=== PATIENT | female | born 1945 | race Caucasian/White ===

== ENCOUNTER 2020-07-04 10:39 | Outpatient (REF) | payer MEDICARE, OTHER, SELFPAY ==
--- NOTE | 2020-07-04 | MM_ITS ---
EXAMINATION: BONE DENSITOMETRY CLINICAL INDICATION: Other specified disorders of bone density and structure. COMPARISON: Previous BD dated 06/30/2018 and baseline BD dated 01/17/2008 (left hip). This is the patient's baseline examination for the spine. TECHNIQUE: Using a [employer] DXA System (software version: 13.1) manufactured by [employer], dual-energy x-ray absorptiometry was performed of the lumbar spine and left hip. The images are of good technical quality. Summary results are attached. FINDINGS: AP SPINE L2-L3: There is levocurvature and degenerative changes at L1 and L4 which may cause overestimation of the bone mineral density and therefore excluded from final measurement calculation. In addition, the images suggests interval loss of height at both T12 and L1 since prior imaging 2018. Current: BMD 1.313 g/cm2, Z-score 1.3, T-score -0.6, normal. 8.9% increase from previous, 1.1% increase from baseline (<5% change is not significant). Prior: BMD 1.040 g/cm2. Baseline: BMD 1.121 g/cm2. LEFT FEMUR, NECK: Current: BMD 0.762 g/cm2, Z-score 0.1, T-score -2.0, osteopenia. Prior: BMD 0.746 g/cm2. Baseline: BMD 0.759 g/cm2. LEFT FEMUR, TOTAL: Current: BMD 0.747 g/cm2, Z-score -0.2, T-score -2.1, osteopenia, 7.2% decrease from previous, 11.5% decrease from baseline (<5% change is not significant). Prior: BMD 0.805 g/cm2. Baseline: BMD 0.844 g/cm2. IDENTIFIED RISK FACTORS: Height loss, history of fracture (adult), family history (parental hip fracture), menopause. HISTORY OF FRACTURE: Spine, shoulder. Other. MEDICATIONS: Calcium supplements or multivitamin, vitamin D, bisphosphonates. MM/XR DEXA axial skeleton IMPRESSION: 1. DIAGNOSIS: Osteopenia based on the lowest T-score value of -2.1 in the total femur applying World Health Organization criteria. 2. Suspect loss of height, vertebral compression at L1 and possibly at T12 since prior imaging 2018. 3. 0-YEAR FRACTURE RISK PREDICTION, FRAX: Major osteoporotic fracture (clinical spine, forearm, hip or shoulder) 33.0%. Hip fracture 19.9%. 4. Treatment Recommendations: NOF guidelines recommend consideration for treatment in postmenopausal women and men age 50 and older presenting with the following: -A hip or vertebral (clinical or morphometric) fracture. -T-score less than or equal to -2.5 at the femoral neck or spine after appropriate evaluation to exclude secondary causes. -Low bone mass at the hip or spine and a 10-year fracture probability by FRAX of greater than or equal to 3% for hip fracture or greater than or equal to 20% for major osteoporotic fracture based on the [place] adapted WHO algorithm. 5. Other Recommendations: All treatment decisions require clinical judgment and consideration of individual patient factors, including patient preferences, comorbidities, previous drug use, risk factors not captured in the FRAX model (e.g. frailty, falls, vitamin D deficiency, increased bone turnover, interval significant decline in bone density) and possible under or overestimation of fracture risk by FRAX. Additional medical evaluation for secondary cause of low bone mineral density may be appropriate. FUTURE SCAN RECOMMENDATION: People with diagnosed cases of osteoporosis or at high risk for fracture should have regular bone mineral density tests. For patients eligible for Medicare, routine testing is allowed once every 2 years. The testing frequency can be increased to one year for patients who have rapidly progressing disease, those who are receiving or discontinuing medical therapy to restore bone mass, or have additional risk factors.i
--- NOTE | 2020-07-04 | MM_ITS ---
EXAMINATION: MM SCREENING DIGITAL BREAST TOMOSYNTHESIS, LEFT CLINICAL INFORMATION: Screening. Asymptomatic. Prior left lumpectomy for breast cancer 2014 and prior right mastectomy 2003. COMPARISON: Mammography: 07/04/2019, 06/30/2018, 06/25/2017, 06/25/2016 TECHNIQUE: Digital breast tomosynthesis is performed in both the craniocaudal and mediolateral oblique views along with computer-aided detection (CAD). Synthesized 2D images are generated from the tomosynthesis. Additional exaggerated CC view is provided. FINDINGS: The breasts are heterogeneously dense, which may obscure small masses (ACR BI-RADS breast composition Category c). There is stable scarring central 11:00 left breast. A subtle small asymmetric density posterior medial breast on CC view resides 9.8 cm from nipple is not seen with certainty on prior studies. There is no correlate on MLO view, possibly beyond field of view. Patient will be recalled for additional imaging. The remainder left breast shows no other significant changes. Again, there are scattered punctate and benign coarse calcifications. Skin contours are smooth. MM/MM tomosynthesis screening LT IMPRESSION: Small asymmetric density posterior medial breast on CC view. ASSESSMENT: BI-RADS 0: Incomplete - Need Additional Imaging Evaluation RECOMMENDATION: 1. Additional views of the left breast (spot medial CC, rolled CC, ML). 2. Targeted ultrasound if warranted after review of the additional views. 3. Radiology department staff will contact the patient for additional imaging. This patient's information was entered into a reminder system with a target due date for their next mammogram.
== END 2020-07-04 10:40 | disposition home or self-care (01) ==
LOC: HO.MAMMO 10:39
PROVIDERS: PCP Internal Medicine; Visit Provider Surgery
DX: Z12.31 Encounter for screening mammogram for malignant neoplasm of breast (principal); Z13.820 Encounter for screening for osteoporosis; M85.88 Other specified disorders of bone density and structure, other site
CPT/HCPCS: 77067; 77080

== ENCOUNTER 2020-07-27 10:42 | Outpatient (REF) | payer MEDICARE, OTHER, SELFPAY ==
--- NOTE | 2020-07-27 10:50 | MM_ITS ---
EXAMINATION: MM DIAGNOSTIC DIGITAL BREAST TOMOSYNTHESIS, LEFT CLINICAL INFORMATION: Recall from screening for small asymmetric density posterior medial left breast on CC view. Prior left lumpectomy for breast cancer 2014 and right mastectomy for breast cancer 2004. COMPARISON: Mammography: 07/04/2020, 06/30/2018, 06/25/2017 TECHNIQUE: Digital breast tomosynthesis is performed. 2D images are generated from the tomosynthesis. The following views are obtained: Rolled CC x2, spot CC x2. FINDINGS: The breasts are heterogeneously dense, which may obscure small masses (ACR BI-RADS breast composition Category c). Additional views show the small circumscribed nodule in the area of asymmetry posterior medial breast, similar to prior exams dating back to 2017. No developing density or interval mass or architectural abnormality. No significant changes from prior studies. Results are discussed with the patient at time of visit. MM/MM tomosynthesis diagnostic RT IMPRESSION: Additional views demonstrate no significant changes from prior studies. ASSESSMENT: BI-RADS 2: Benign RECOMMENDATION: Routine annual mammography screening. This patient's information was entered into a reminder system with a target due date for their next mammogram.
== END 2020-07-27 10:43 | disposition home or self-care (01) ==
LOC: HO.MAMMO 10:42
PROVIDERS: PCP Internal Medicine; Visit Provider Surgery
DX: R92.2 Inconclusive mammogram (principal); Z85.3 Personal history of malignant neoplasm of breast; Z90.11 Acquired absence of right breast and nipple
CPT/HCPCS: 77061; 77065

== ENCOUNTER → 2020-10-04 13:17 | Outpatient (BNVA) | payer MEDICARE, OTHER, SELFPAY | PROVIDERS: PCP Internal Medicine; Visit Provider Surgery ==

== ENCOUNTER → 2021-04-16 13:05 | Outpatient (BNVA) | payer MEDICARE, OTHER, SELFPAY | PROVIDERS: PCP Internal Medicine; Referring Provider Internal Medicine; Visit Provider Surgery | DX: Z85.3 Personal history of malignant neoplasm of breast (principal) | CPT/HCPCS: 99212 ==

== ENCOUNTER 2021-07-08 11:51 | Outpatient (REF) | payer MEDICARE, OTHER, SELFPAY ==
--- NOTE | ~2021-07-08 | MM_ITS ---
EXAMINATION: MM SCREENING DIGITAL BREAST TOMOSYNTHESIS, LEFT CLINICAL INFORMATION: Right mastectomy for breast cancer 2004. Prior left lumpectomy for breast cancer, 2014. COMPARISON: Mammography: 07/27/2020, 07/04/2020, 07/04/2019, 06/30/2018 TECHNIQUE: Digital breast tomosynthesis is performed in both the craniocaudal and mediolateral oblique views along with computer-aided detection (CAD). Synthesized 2D images are generated from the tomosynthesis. Additional exaggerated CC view is provided. FINDINGS: The breasts are heterogeneously dense, which may obscure small masses (ACR BI-RADS breast composition Category c). There are post therapy changes with stable scarring mid medial left breast. Background fibroglandular densities are stable. There is no developing density or interval mass or interval architectural changes. There are stable scattered benign punctate and some coarse calcifications. No significant changes. MM/MM tomosynthesis screening LT IMPRESSION: No mammographic evidence of malignancy. Post therapy changes, stable. ASSESSMENT: BI-RADS 2: Benign RECOMMENDATION: Routine annual mammography screening. This patient's information was entered into a reminder system with a target due date for their next mammogram.
== END 2021-07-08 11:52 | disposition home or self-care (01) ==
LOC: HO.MAMMO 11:51
PROVIDERS: Absent Provider Internal Medicine Hematology & Oncology; Visit Provider Internal Medicine
DX: Z12.31 Encounter for screening mammogram for malignant neoplasm of breast (principal)
CPT/HCPCS: 77063; 77067

== ENCOUNTER → 2021-10-29 11:25 | Outpatient (BNVA) | payer MEDICARE, OTHER, SELFPAY | PROVIDERS: PCP Internal Medicine; Referring Provider Internal Medicine; Visit Provider Surgery | DX: Z85.3 Personal history of malignant neoplasm of breast (principal) | CPT/HCPCS: 99212 ==

== ENCOUNTER → 2022-04-29 13:39 | Outpatient (BNVA) | payer MEDICARE, OTHER, SELFPAY | PROVIDERS: PCP Internal Medicine; Visit Provider Surgery | DX: Z85.3 Personal history of malignant neoplasm of breast (principal) | CPT/HCPCS: 99212 ==

== ENCOUNTER 2022-07-17 14:41 | Outpatient (REF) | payer MEDICARE, OTHER, SELFPAY ==
--- NOTE | ~2022-07-17 | MM_ITS ---
EXAMINATION: MM SCREENING DIGITAL BREAST TOMOSYNTHESIS, LEFT CLINICAL INFORMATION: Screening. Asymptomatic. Status post right mastectomy and left lumpectomy. COMPARISON: Mammography: July 08, 2021 and studies dating back to June 25, 2016 TECHNIQUE: Digital breast tomosynthesis is performed in both the craniocaudal and mediolateral oblique views along with computer-aided detection (CAD). Synthesized 2D images are generated from the tomosynthesis. FINDINGS: The breasts are extremely dense, which lowers the sensitivity of mammography (ACR BI-RADS breast composition Category d). There is a stable postoperative appearance to the left breast. Scattered and grouped calcifications again identified. MM/MM tomosynthesis screening LT IMPRESSION: No significant changes from prior exam. ASSESSMENT: BI-RADS 2: Benign RECOMMENDATION: Routine annual mammography screening. This patient's information was entered into a reminder system with a target due date for their next mammogram.
--- NOTE | ~2022-07-17 | MM_ITS ---
EXAMINATION: BONE DENSITOMETRY CLINICAL INDICATION: Osteoporosis. COMPARISON: Previous BD dated 07/04/2020 and baseline BD dated 01/17/2008. TECHNIQUE: Using a [employer] DXA System (software version: 13.1) manufactured by [employer], dual-energy x-ray absorptiometry was performed of the lumbar spine and left hip. The images are of good technical quality. Summary results are attached. FINDINGS: AP SPINE L2-L3 (excluding L1 and L4): The data of L1-L4 has been changed to exclude the L1 and L4 vertebral bodies, because degenerative sclerosis at these levels may cause overestimation of lumbar spine density. Current: BMD 1.179 g/cm2, Z-score 1.7, T-score -0.2, normal, 4.1% increase from previous, 5.2% increase from baseline (<5% change is not significant). Prior: BMD 1.133 g/cm2. Baseline: BMD 1.121 g/cm2. LEFT FEMUR, NECK: Current: BMD 0.721 g/cm2, Z-score -0.2, T-score -2.3, osteopenia. Prior: BMD 0.762 g/cm2. Baseline: BMD 0.759 g/cm2. LEFT FEMUR, TOTAL: Current: BMD 0.720 g/cm2, Z-score -0.4, T-score -2.3, osteopenia, 3.6% decrease from previous, 14.7% decrease from baseline (<5% change is not significant). Prior: BMD 0.747 g/cm2. Baseline: BMD 0.844 g/cm2. IDENTIFIED RISK FACTORS: Family history (parent hip fracture), height loss, history of fracture (adult), menopause. HISTORY OF FRACTURE: Clavicle, spine, shoulder. MEDICATIONS: Calcium, vitamin D, bisphosphonate. MM/XR DEXA axial skeleton IMPRESSION: 1. DIAGNOSIS: Osteopenia based on the lowest T-score value of -2.3 in the femur neck and total femur applying World Health Organization criteria. 2. 10-YEAR FRACTURE RISK PREDICTION, FRAX: Not performed in this patient on estrogen or bone building treatments. 3. Treatment Recommendations: NOF guidelines recommend consideration for treatment in postmenopausal women and men age 50 and older presenting with the following: -A hip or vertebral (clinical or morphometric) fracture. -T-score less than or equal to -2.5 at the femoral neck or spine after appropriate evaluation to exclude secondary causes. -Low bone mass at the hip or spine and a 10-year fracture probability by FRAX of greater than or equal to 3% for hip fracture or greater than or equal to 20% for major osteoporotic fracture based on the [place] adapted WHO algorithm. 4. Other Recommendations: All treatment decisions require clinical judgment and consideration of individual patient factors, including patient preferences, comorbidities, previous drug use, risk factors not captured in the FRAX model (e.g. frailty, falls, vitamin D deficiency, increased bone turnover, interval significant decline in bone density) and possible under or overestimation of fracture risk by FRAX. Additional medical evaluation for secondary cause of low bone mineral density may be appropriate. FUTURE SCAN RECOMMENDATION: People with diagnosed cases of osteoporosis or at high risk for fracture should have regular bone mineral density tests. For patients eligible for Medicare, routine testing is allowed once every 2 years. The testing frequency can be increased to one year for patients who have rapidly progressing disease, those who are receiving or discontinuing medical therapy to restore bone mass, or have additional risk factors.
== END 2022-07-17 14:42 | disposition home or self-care (01) ==
LOC: HO.MAMMO 14:41
PROVIDERS: PCP Internal Medicine; Referring Provider Surgery; Visit Provider Internal Medicine Hematology & Oncology
DX: Z12.31 Encounter for screening mammogram for malignant neoplasm of breast (principal); Z13.820 Encounter for screening for osteoporosis; M81.0 Age-related osteoporosis without current pathological fracture; Z78.0 Asymptomatic menopausal state
CPT/HCPCS: 77063; 77067; 77080

== ENCOUNTER → 2022-10-14 11:53 | Outpatient (BNVA) | payer MEDICARE, OTHER, SELFPAY | PROVIDERS: PCP Internal Medicine; Visit Provider Surgery | DX: Z85.3 Personal history of malignant neoplasm of breast (principal) | CPT/HCPCS: 99212 ==

== ENCOUNTER 2023-05-01 11:11 | Outpatient (AMB) | payer MEDICARE, OTHER, SELFPAY ==
--- NOTE | 2023-05-01 11:12 | MHC.OFFVIS ---
Intake Vital Signs 05/01/23 11:46 Height 5 ft 7 in Weight 145 lb 2 oz BMI 22.7 BP 163/77 H Blood Pressure Location Lt brachial Position Sitting Pulse 92 Intake Visit Reasons: 6 month follow up breast exam Intake Note: Patient is seen in office for 6 month follow up visit breast exam. Patient c/o: admits to continued soreness in the breast, and sensitive under the right axilla Tobacco Classer Required: No Accompanied by: Self / Same As Patient Allergies moxifloxacin [From AVELOX] Allergy (Unknown, Unverified 05/01/23 11:13) HIVES,RASH pneumococcal vaccine [PNEUMOCOCCAL VACCINE] Allergy (Unknown, Unverified 05/01/23 11:13) TEMP, SWELLING Quinolones [QUINOLONES] Allergy (Unknown, Unverified 05/01/23 11:13) RASH dust, cats,strong perfumes Allergy (Unknown, Uncoded 05/01/23 11:13) scratchy throat nasal stuffiness environmental Allergy (Unknown, Uncoded 05/01/23 11:13) Nasal congestion seasonal allergies Allergy (Unknown, Uncoded 05/01/23 11:13) Unknown Medication List - Last Reconciled 05/01/23 by Horace Gaspar MD apixaban (Eliquis) 5 mg PO BID docusate sodium (Colace) 100 mg PO DAILY fentanyl 12 mcg/hr 1 patch topical Q3D letrozole 2.5 mg PO DAILY metoprolol succinate ER 25 mg PO DAILY nitrofurantoin monohyd/m-cryst 100 mg 1 cap PO Q12H omeprazole 20 mg PO DAILY PRN palbociclib mg PO zoledronic acid 4 mg IV Q4W HPI HPI Comments History of Present Illness Details 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 She initially developed a right breast cancer which was treated by Dr. Armendariz and subsequently developed a recurrence right breast cancer requiring a right modified radical mastectomy in 2005. She later developed a left breast carcinoma treated by Dr. San with a left breast lumpectomy and left axillary sentinel node biopsy on 06/08/2015.? Pathology revealed a 1 cm grade 1 infiltrating ductal carcinoma ER NJ negative, HER2 Tejas negative.? Margins were clear however the inferior margin was close initially and re-excision performed with widely clear margin.? The 1 sentinel node was benign.? She subsequently underwent TC chemotherapy at [facility] under the direction of Dr. Huntley and radiation therapy also at [facility] with Dr. Walker, completed in December 2015. 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 The HER2 Tejas was equivocal by IHC and not over expressed by FISH.? She reported back pain which was initially thought to be due to arthritis but after a bone scan, metastatic disease was noted in the ribs, skull, and back.? 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 A biopsy of metastatic lesion at L4 revealed estrogen positive tumor, positive for over expression of her 2 Tejas.? She received radiation therapy to her back and subsequently received Taxol, Herceptin, and Perjeta.? She is also receiving Zometa for her bones (Dr. Huntley).? She denies any ongoing breast symptoms but does report left hip pain. Screening mammogram of 07/17/2022 of the left breast revealed no mammographic evidence of malignancy (BI-RADS 2). Routine annual mammography was recommended. Bone scan of 07/29/2021 reveals multifocal osseous disease consistent with chronic metastatic disease. [facility] Medical History Left breast mass History of bilateral breast cancer Surgical History History of lumpectomy of left breast (06/08/15) H/O colonoscopy History of nasal surgery History of tonsillectomy H/O right mastectomy (2005) Family History Father Lymphoma Maternal Aunt Pancreatic cancer Review of Systems Const All systems reviewed & are unremarkable except as noted in HPI and below Denies chills, Denies fever(s), Reports weakness, Denies weight gain and Denies weight loss Resp Denies no additional complaints GI Denies abdominal pain and Reports bloating Denies nipple discharge Musc Reports back pain, Reports myalgias and Reports loss of height Skin/Breast Details: Right mastectomy Denies breast swelling, Reports breast pain, Denies breast mass, Denies change in breast shape and Denies nipple discharge Neuro Reports weakness Dominick/Lymph Denies lymphadenopathy Physical Exam Const General: cooperative, healthy appearing, comfortable, well developed, alert and Physically active Neck Neck: Yes normal visual inspection, Yes full ROM and Yes no lymphadenopathy Chest Other: Right mastectomy, left breast with a well-healed incision in the upper mid breast oriented transversely. Mild tenderness is elicited in the upper outer quadrant. No palpable breast masses noted in the left breast. No skin changes, ulceration or subcutaneous lesions are palpable on the right side. No new breast mass noted and no enlarged lymph nodes on either side. No overlying skin changes are appreciated in this area. Resp Effort & Inspection: normal respiratory effort, no cough and not tachypneic GI Inspection: Yes normal to inspection Skin General skin exam: no rashes or lesions noted Extrem General: Yes no clubbing, cyanosis or edema Assessment & Plan Assessment & Plan (1) History of bilateral breast cancer: Code(s): Z85.3 - Personal history of malignant neoplasm of breast Plan: 78-year-old female seen for follow-up breast examination after a long history with bilateral breast cancer previously treated by Dr. Armendariz and Dr. San. She subsequently developed metastasis to the spine and received chemotherapy and radiation. She reports mild back and left hip pain pain. Her most recent mammogram of the left breast on 07/17/2022 revealed benign findings (BI-RADS 2). She is scheduled for an annual mammogram on 07/21/2023. Examination today reveals no suspicious findings in the left breast. The right chest wall reveals no palpable subcutaneous nodules or evidence of local recurrence. She will return for follow-up examination in 6 months and continue her oncology follow-up with Dr. Huntley. Coding Level of Care Code Est Pt Level 3 (33371) Diagnoses History of bilateral breast cancer Z85.3
[2023-05-01 11:46] VITALS: BP 163/77; PULSE 92; BMI 22.7
== END 2023-05-01 11:54 | disposition home or self-care (01) ==
PROVIDERS: PCP Internal Medicine; Visit Provider Surgery
DX: Z85.3 Personal history of malignant neoplasm of breast (principal)
CPT/HCPCS: 99213

== ENCOUNTER → 2023-05-01 11:11 | Outpatient (BNVA) | payer MEDICARE, OTHER, SELFPAY | PROVIDERS: PCP Internal Medicine; Visit Provider Surgery | DX: Z85.3 Personal history of malignant neoplasm of breast (principal) | CPT/HCPCS: 99212 ==

== ENCOUNTER 2023-07-22 14:49 | Outpatient (REF) | payer MEDICARE, OTHER, SELFPAY ==
--- NOTE | ~2023-07-22 | MM_ITS ---
EXAMINATION: MM SCREENING DIGITAL BREAST TOMOSYNTHESIS, LEFT CLINICAL INFORMATION: Screening. Asymptomatic. The patient is status post right mastectomy and history of conservatively treated left breast cancer. Please note that the patient has severe arthritis of the left shoulder which limits left breast positioning for the mammogram. COMPARISON: Mammography: This study is compared with prior exams dating back to 2019. TECHNIQUE: Digital breast tomosynthesis is performed in both the craniocaudal and mediolateral oblique views along with computer-aided detection (CAD). Synthesized 2D images are generated from the tomosynthesis. FINDINGS: There are scattered areas of fibroglandular density (ACR BI-RADS breast composition Category b). There are grouped calcifications spanning approximately 28 mm. These lie approximately 1 cm anterior to the surgical bed of the prior left breast cancer. There are also loosely grouped calcifications in the upper outer quadrant of the left breast. Additional mammographic imaging with magnification is advised for both areas of calcification.. There are architectural changes in the upper inner quadrant of the left breast bilingual inside sales representative of the prior surgical bed. MM/MM tomosynthesis screening LT IMPRESSION: 2 groups of calcifications in the left breast for which additional mammographic imaging magnification is advised. ASSESSMENT: BI-RADS BI-RADS 0 - Incomplete: Needs additional Imaging. RECOMMENDATION: Additional views of the left breast Radiology department staff will contact the patient for additional imaging. Additional Imaging required This examination should not preclude the clinical evaluation of a suspicious palpable abnormality. This patient's information was entered into a reminder system with a target due date for their next mammogram.
== END 2023-07-22 14:50 | disposition home or self-care (01) ==
LOC: HO.MAMMO 14:49
PROVIDERS: PCP Internal Medicine; Referring Provider Internal Medicine Hematology & Oncology; Visit Provider Internal Medicine
DX: Z12.31 Encounter for screening mammogram for malignant neoplasm of breast (principal)
CPT/HCPCS: 77063; 77067

== ENCOUNTER → 2023-07-22 15:00 | Outpatient (BNV) | payer MEDICARE, OTHER, SELFPAY | PROVIDERS: PCP Internal Medicine; Referring Provider Internal Medicine Hematology & Oncology; Visit Provider Radiology Diagnostic Radiology | DX: Z12.31 Encounter for screening mammogram for malignant neoplasm of breast (principal) | CPT/HCPCS: 77063; 77067 ==

== ENCOUNTER → 2023-08-05 13:00 | Outpatient (BNV) | payer MEDICARE, OTHER, SELFPAY | PROVIDERS: PCP Internal Medicine; Visit Provider Radiology Diagnostic Radiology | DX: R92.1 Mammographic calcification found on diagnostic imaging of breast (principal) | CPT/HCPCS: 77065 ==

== ENCOUNTER 2023-08-05 13:01 | Outpatient (REF) | payer MEDICARE, OTHER, SELFPAY ==
--- NOTE | ~2023-08-05 | MM_ITS ---
EXAMINATION: MM DIAGNOSTIC DIGITAL MAMMOGRAPHY, LEFT CLINICAL INFORMATION: 78-year-old female history of RIGHT mastectomy 2005, LEFT breast carcinoma status post lumpectomy and radiation in 2015, with bony metastases T12-L2, diagnostic LEFT mammogram to evaluate increasing calcifications anterior to the lumpectomy site, and upper outer LEFT calcifications also evident. Patient is managed oncologically at [facility]. COMPARISON: Mammography: 07/22/2023, 07/17/2022, 07/08/2021, 07/27/2020, 07/04/2020, and dating back to 04/17/2014. TECHNIQUE: Digital mammography is performed in the following views: 2-D spot magnification views left CC x2, and left ML x2. FINDINGS: The breasts are heterogeneously dense, which may obscure small masses (ACR BI-RADS breast composition Category c). In the upper outer quadrant of the left breast, there are scattered punctate rounded non-pleomorphic calcifications present in the heterogeneously dense breast stroma, without suspicious grouping, pleomorphism, or suspicious distribution. There may be a few layering forms present suggesting milk of calcium. In hindsight these were present on prior exams and largely appear unchanged within the confines of comparing magnification view to non-magnification views. There are 3 large dense benign dystrophic calcifications present, minimally changed from priors. Approximately 3.3 cm lateral to the lumpectomy site are extremely faint grouped punctate calcifications, which cannot be appreciated without magnification views and hence no prior comparison can be made. We will follow these calcifications in 6 months as well, as I believe they are too faint to resolve on stereotactic biopsy. Anterior to the surgical scar, approximately 11:00 axis mid to anterior left breast, there are significantly increased somewhat coarse but significantly pleomorphic calcifications. These are grouped, with a few linear, branching, and casting forms, in a possible segmental distribution, spanning approximately 3.1 cm AP diameter. These have significantly increased in number and pleomorphism since 1 year prior, and despite having a somewhat coarse appearance, could easily represent malignant calcifications/disease recurrence. It would be unusual to develop many dystrophic calcifications over one years time, 8 years after left lumpectomy surgery. Hence, these should be considered suspicious, and stereotactic biopsy is recommended for further characterization. MM/MM added views LT IMPRESSION: -Increasing suspicious calcifications anterior to the lumpectomy site as described, for which stereotactic biopsy is recommended for further characterization. -Punctate calcifications in the upper outer left breast are present without suspicious grouping, pleomorphism, or suspicious distribution. In hindsight these are likely unchanged and likely benign. This includes a group of approximately 3.3 cm immediately lateral to the lumpectomy site. Six-month interval follow-up mammography recommended to ensure stability with standard magnification views. -Lengthy discussion was held with the patient and her brother. The patient reports minimal recent rising tumor marker, which is also of note. Ultimately, the patient decided stereotactic biopsy of these increasing calcifications was the most reasonable course forward, and we will schedule this unless we hear differently from the patient. ASSESSMENT: BI-RADS BI-RADS 4 - Suspicious finding RECOMMENDATION: Biopsy recommended
== END 2023-08-05 13:02 | disposition home or self-care (01) ==
LOC: HO.MAMMO 13:01
PROVIDERS: PCP Internal Medicine; Visit Provider Internal Medicine
DX: R92.1 Mammographic calcification found on diagnostic imaging of breast (principal); Z85.3 Personal history of malignant neoplasm of breast; Z90.11 Acquired absence of right breast and nipple; Z92.3 Personal history of irradiation
CPT/HCPCS: 77065

== ENCOUNTER 2023-08-07 08:01 | Outpatient (REF) | payer MEDICARE, OTHER, SELFPAY | END 2023-08-07 08:02 | disposition home or self-care (01) | LOC: HO.MAMMO 08:01 | PROVIDERS: Absent Provider Internal Medicine Hematology & Oncology; PCP Internal Medicine; Visit Provider Surgery | DX: Z13.89 Encounter for screening for other disorder (principal) ==

== ENCOUNTER 2023-09-09 11:04 | Outpatient (AMB) | payer MEDICARE, OTHER, SELFPAY ==
[2023-09-09 11:16] VITALS: BP 136/80; PULSE 76
--- NOTE | 2023-09-09 11:16 | MHC.OFFVIS ---
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 Required: No Allergies moxifloxacin [From AVELOX] Allergy (Unknown, Unverified 09/09/23 11:19) HIVES,RASH pneumococcal vaccine [PNEUMOCOCCAL VACCINE] Allergy (Unknown, Unverified 09/09/23 11:19) TEMP, SWELLING Quinolones [QUINOLONES] Allergy (Unknown, Unverified 09/09/23 11:19) RASH dust, cats,strong perfumes Allergy (Unknown, Uncoded 09/09/23 11:19) scratchy throat nasal stuffiness environmental Allergy (Unknown, Uncoded 09/09/23 11:19) Nasal congestion seasonal allergies Allergy (Unknown, Uncoded 09/09/23 11:19) Unknown Medication List - Last Reconciled 09/09/23 by Johnathan Hernandez, RN apixaban (Eliquis) 5 mg PO BID docusate sodium (Colace) 100 mg PO DAILY fentanyl 12 mcg/hr 1 patch topical Q3D letrozole 2.5 mg PO DAILY metoprolol succinate ER 25 mg PO DAILY mirabegron ER (Myrbetriq) 50 mg PO DAILY nitrofurantoin monohyd/m-cryst 100 mg 1 cap PO Q12H omeprazole 20 mg PO DAILY PRN palbociclib mg PO zoledronic acid 4 mg IV Q4W HPI HPI Comments History of Present Illness Details Daniela Woods is a 78-year-old female returning today to review results of her recent stereotactic guided core biopsy [place] [facility] [place] 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 She initially developed a right breast cancer treated by Dr. Armendariz and subsequently developed a recurrence right breast cancer requiring a right modified radical mastectomy in 2005. She later developed a left breast carcinoma treated by Dr. aSn with a left breast lumpectomy and left axillary sentinel node biopsy on 06/08/2015.? Pathology revealed a 1 cm grade 1 infiltrating ductal carcinoma ER GA negative, HER2 Tejas negative.? Margins were clear however the inferior margin was close initially and re-excision performed with widely clear margin.? The 1 sentinel node was benign.? She subsequently underwent TC chemotherapy at [facility] under the direction of Dr. Huntley and radiation therapy also at [facility] with Dr. Walker, completed in December 2015. She was diagnosed with metastatic breast cancer with spread to her spine felt to be related to her right breast carcinoma which was a mixed ductal and lobular carcinoma, ER GA positive, 9.5 cm in greatest diameter with 2 of 14 right axillary lymph nodes positive for metastasis.? The HER2 Tejas was equivocal by IHC and not over expressed by FISH.? She reported back pain which was initially thought to be due to arthritis but after a bone scan, metastatic disease was noted in the ribs, skull, and back.? 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 A biopsy of metastatic lesion at L4 revealed estrogen positive tumor, positive for over expression of her 2 Tejas.? She received radiation therapy to her back and subsequently received Taxol, Herceptin, and Perjeta.? She is also receiving Zometa for her bones (Dr. Huntley).? She denies any ongoing breast symptoms but does report left hip pain. Bone scan of 07/29/2021 reveals multifocal osseous disease consistent with chronic metastatic disease. Screening mammogram of 07/22/2023 with follow-up diagnostic images of the left breast of 09/01/2023 revealed a cluster of calcifications in the left breast spanning approximately 3.3 cm. She subsequently underwent stereotactic guided core biopsy at [facility] [place] and the pathology revealed DCIS, ER/GA negative. Patient was provided with a copy of the pathology report. [facility] Medical History Left breast mass History of bilateral breast cancer Surgical History History of lumpectomy of left breast (06/08/15) H/O colonoscopy History of nasal surgery History of tonsillectomy H/O right mastectomy (2005) Family History Father Lymphoma Maternal Aunt Pancreatic cancer Review of Systems Const All systems reviewed & are unremarkable except as noted in HPI and below Denies chills, Denies fever(s), Reports weakness, Denies weight gain and Denies weight loss Resp Denies no additional complaints GI Denies abdominal pain and Reports bloating Denies nipple discharge Musc Reports back pain, Reports myalgias and Reports loss of height Skin/Breast Details: Right mastectomy Denies breast swelling, Reports breast pain, Denies breast mass, Denies change in breast shape and Denies nipple discharge Neuro Reports weakness Dominick/Lymph Denies lymphadenopathy Physical Exam Vital Signs: Last Vital Signs Pulse 76 09/09/23 11:16 BP 136/80 09/09/23 11:16 Const General: cooperative, healthy appearing, comfortable, well developed, alert and Physically active Neck Neck: Yes normal visual inspection, Yes full ROM and Yes no lymphadenopathy Chest Other: Exam deferred Resp Effort & Inspection: normal respiratory effort, no cough and not tachypneic GI Inspection: Yes normal to inspection Skin General skin exam: no rashes or lesions noted Extrem General: Yes no clubbing, cyanosis or edema Assessment & Plan Assessment & Plan (1) History of bilateral breast cancer: Code(s): Z85.3 - Personal history of malignant neoplasm of breast (2) Ductal carcinoma in situ (DCIS) of left breast: Code(s): D05.12 - Intraductal carcinoma in situ of left breast Plan 78-year-old female patient returning following a recent stereotactic guided core biopsy of the left breast. This revealed DCIS, ER/GA negative. Patient has previously undergone radiation therapy to the left breast. She is also being treated for metastatic disease for the right breast cancer metastatic to the spine. Options include no surgery, lumpectomy, or simple mastectomy. Will discuss with Dr. Huntley. Patient will schedule a follow-up appointment with him as well to discuss further. Coding Level of Care Code Est Pt Level 4 (01462) Diagnoses History of bilateral breast cancer Z85.3 Ductal carcinoma in situ (DCIS) of left breast D05.12
== END 2023-09-09 12:27 | disposition home or self-care (01) ==
PROVIDERS: PCP Internal Medicine; Visit Provider Surgery
DX: Z85.3 Personal history of malignant neoplasm of breast (principal); D05.12 Intraductal carcinoma in situ of left breast
CPT/HCPCS: 99214

== ENCOUNTER → 2023-09-09 11:04 | Outpatient (BNVA) | payer MEDICARE, OTHER, SELFPAY | PROVIDERS: PCP Internal Medicine; Visit Provider Surgery | DX: D05.12 Intraductal carcinoma in situ of left breast (principal); Z85.3 Personal history of malignant neoplasm of breast | CPT/HCPCS: 99212 ==

== ENCOUNTER 2023-09-29 10:16 | Outpatient (REF) | payer MEDICARE, OTHER, SELFPAY | END 2023-09-29 10:17 | disposition home or self-care (01) | LOC: HO.MAMMO 10:16 | PROVIDERS: PCP Internal Medicine; Visit Provider Surgery | DX: D05.12 Intraductal carcinoma in situ of left breast (principal) | CPT/HCPCS: 99212 ==

== ENCOUNTER 2023-09-29 13:18 | Outpatient (AMB) | payer MEDICARE, OTHER, SELFPAY ==
--- NOTE | 2023-09-29 13:22 | MHC.OFFVIS ---
Intake Vital Signs 09/29/23 13:31 Height 5 ft 7 in Weight 146 lb BMI 22.9 BP 183/96 H Blood Pressure Location Lt brachial Position Sitting Pulse 104 H Intake Visit Reasons: discuss mastectomy Intake Note: Patient is seen in office to discuss mastectomy. Systems Administration Analyst Required: No Accompanied by: Other Relationship Allergies moxifloxacin [From AVELOX] Allergy (Unknown, Unverified 09/29/23 13:31) HIVES,RASH pneumococcal vaccine [PNEUMOCOCCAL VACCINE] Allergy (Unknown, Unverified 09/29/23 13:31) TEMP, SWELLING Quinolones [QUINOLONES] Allergy (Unknown, Unverified 09/29/23 13:31) RASH dust, cats,strong perfumes Allergy (Unknown, Uncoded 09/29/23 13:31) scratchy throat nasal stuffiness environmental Allergy (Unknown, Uncoded 09/29/23 13:31) Nasal congestion seasonal allergies Allergy (Unknown, Uncoded 09/29/23 13:31) Unknown HPI HPI Comments History of Present Illness Details Daniela Woods is a 78-year-old female returning today to review results of her recent stereotactic guided core biopsy [place] [facility] [place] 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 She initially developed a right breast cancer treated by Dr. Armendariz and subsequently developed a recurrence right breast cancer requiring a right modified radical mastectomy in 2005. She later developed a left breast carcinoma treated by Dr. San with a left breast lumpectomy and left axillary sentinel node biopsy on 06/08/2015.? Pathology revealed a 1 cm grade 1 infiltrating ductal carcinoma ER SC negative, HER2 Tejas negative.? Margins were clear however the inferior margin was close initially and re-excision performed with widely clear margin.? The 1 sentinel node was benign.? She subsequently underwent TC chemotherapy at [facility] under the direction of Dr. Huntley and radiation therapy also at [facility] with Dr. Walker, completed in December 2015. She was diagnosed with metastatic breast cancer with spread to her spine felt to be related to her right breast carcinoma which was a mixed ductal and lobular carcinoma, ER SC positive, 9.5 cm in greatest diameter with 2 of 14 right axillary lymph nodes positive for metastasis.? The HER2 Tejas was equivocal by IHC and not over expressed by FISH.? She reported back pain which was initially thought to be due to arthritis but after a bone scan, metastatic disease was noted in the ribs, skull, and back.? 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 A biopsy of metastatic lesion at L4 revealed estrogen positive tumor, positive for over expression of her 2 Tejas.? She received radiation therapy to her back and subsequently received Taxol, Herceptin, and Perjeta.? She is also receiving Zometa for her bones (Dr. Huntley).? She denies any ongoing breast symptoms but does report left hip pain. Bone scan of 07/29/2021 reveals multifocal osseous disease consistent with chronic metastatic disease. Screening mammogram of 07/22/2023 with follow-up diagnostic images of the left breast of 09/01/2023 revealed a cluster of calcifications in the left breast spanning approximately 3.3 cm. She subsequently underwent stereotactic guided core biopsy at [facility] and the pathology revealed DCIS, ER/SC negative. Patient was provided with a copy of the pathology report. After discussion with her oncologist Dr. Huntley she was given the option of lumpectomy verses simple mastectomy. She is now decided to proceed with simple mastectomy. She returns today to discuss simple mastectomy as well as the recovery following this procedure. [facility] Medical History Left breast mass History of bilateral breast cancer Surgical History History of lumpectomy of left breast (06/08/15) H/O colonoscopy History of nasal surgery History of tonsillectomy H/O right mastectomy (2005) Family History Father Lymphoma Maternal Aunt Pancreatic cancer Review of Systems Const All systems reviewed & are unremarkable except as noted in HPI and below Denies chills, Denies fever(s), Reports weakness, Denies weight gain and Denies weight loss Resp Denies no additional complaints GI Denies abdominal pain and Reports bloating Denies nipple discharge Musc Reports back pain, Reports myalgias and Reports loss of height Skin/Breast Details: Right mastectomy Denies breast swelling, Reports breast pain, Denies breast mass, Denies change in breast shape and Denies nipple discharge Neuro Reports weakness Dominick/Lymph Denies lymphadenopathy Physical Exam Const General: cooperative, healthy appearing, comfortable, well developed, alert and Physically active Neck Neck: Yes normal visual inspection, Yes full ROM and Yes no lymphadenopathy Chest Other: Exam deferred Resp Effort & Inspection: normal respiratory effort, no cough and not tachypneic GI Inspection: Yes normal to inspection Skin General skin exam: no rashes or lesions noted Extrem General: Yes no clubbing, cyanosis or edema Assessment & Plan Assessment & Plan (1) History of bilateral breast cancer: Code(s): Z85.3 - Personal history of malignant neoplasm of breast (2) Ductal carcinoma in situ (DCIS) of left breast: Code(s): D05.12 - Intraductal carcinoma in situ of left breast Plan 78-year-old female patient returning following a recent stereotactic guided core biopsy of the left breast. This revealed DCIS, ER/SC negative. Patient has previously undergone radiation therapy to the left breast. She is also being treated for metastatic disease for the right breast cancer metastatic to the spine. Options include no surgery, lumpectomy, or simple mastectomy. After discussion with the patient's oncologist, the patient has decided to proceed with simple mastectomy. This will be scheduled as a short-stay admit and has been scheduled for 10/05/2023. I reviewed the procedure, risks, and alternatives and she consents to the simple mastectomy. Coding Level of Care Code Est Pt Level 4 (81696) Diagnoses History of bilateral breast cancer Z85.3 Ductal carcinoma in situ (DCIS) of left breast D05.12
[2023-09-29 13:31] VITALS: BP 183/96; PULSE 104; BMI 22.9
== END 2023-09-29 13:54 | disposition home or self-care (01) ==
PROVIDERS: PCP Internal Medicine; Visit Provider Surgery
DX: Z85.3 Personal history of malignant neoplasm of breast (principal); D05.12 Intraductal carcinoma in situ of left breast
CPT/HCPCS: 99214

== ENCOUNTER 2023-10-05 10:04 | Inpatient (IN) | payer MEDICARE, OTHER, SELFPAY ==
[2023-10-02 09:16] VITALS: BMI 22.2
--- NOTE | 2023-10-02 10:14 | P.CONAN_ITS ---
Documented by User: Ema Sigala NP 10/02/23 10:15 HPI - Anesthesia Eval Consult details Narrative: 78yo F for Left Mastectomy Simple, complete Eliquis for afib s/p Right mastectomy, hx chemo Fentanyl patch PMFSH Active Problems Active Problems: All Active Problems (Updated 10/02/23 @ 09:22 by Margo Sebastian, RN) Ductal carcinoma in situ (DCIS) of left breast (Acute) Atrial fibrillation (Acute) Left breast mass (Acute) History of bilateral breast cancer (Acute) Past Medical History Medical History (Updated 10/02/23 @ 09:22 by Margo Sebastian, RN) Constipation GERD (gastroesophageal reflux disease) Recent urinary tract infection OAB (overactive bladder) Anxiety Recent upper respiratory tract infection PND (post-nasal drip) Dental crowns present Lumbar compression fracture Thoracic compression fracture Scoliosis Environmental allergies Seasonal allergies History of cancer chemotherapy History of radiation therapy Atrial fibrillation Left breast mass History of bilateral breast cancer Family History Family History Father Lymphoma Maternal Aunt Pancreatic cancer Surgical History Surgical History History of lumpectomy of left breast (06/08/15) H/O colonoscopy History of nasal surgery History of tonsillectomy H/O right mastectomy (2005) Social History Social History (Updated 10/02/23 @ 09:22 by Margo Sebastian, ERIN) Are you a primary child care teacher to a significant other at home: No Do you presently have visiting nurse or other home services: No Patient Tobacco Use Status: Former Tobacco user Quit Date: Tobacco use type: Cigarette Use of substances other than those prescribed or required for medical reasons: No Have you been hit, kicked, punched, or otherwise hurt by someone within the past year? If so, by whom?: No Are you DNR?: No Advance Directives: No Advance Directives Information Provided: Yes Advance Directives on File: No Recently lost weight without trying: No Nutrition Risks: Surgical patient >75years Poor oral hygiene: No ( many capped teeth ) Meds Allergies Allergy/AdvReac Type Severity Reaction Status Date / Time moxifloxacin [From AVELOX] Allergy Severe HIVES,RASH Verified 10/01/23 15:52 Quinolones [QUINOLONES] Allergy Severe RASH Verified 10/01/23 15:52 adhesive tape Allergy Intermediate Itching, Verified 10/01/23 15:56 redness cefpodoxime [From Vantin] Allergy Intermediate Itching Verified 10/01/23 15:53 pneumococcal vaccine Allergy Intermediate TEMP, Verified 10/01/23 15:52 [PNEUMOCOCCAL VACCINE] SWELLING dust, cats,strong perfumes Allergy Intermediate scratchy Uncoded 10/01/23 15:53 throat, nasal stuffiness environmental Allergy Intermediate Nasal Uncoded 10/01/23 15:53 congestion seasonal allergies Allergy Intermediate Nasal Uncoded 10/01/23 15:53 congestion Home Medications Medication Instructions Recorded Confirmed Last Taken Type docusate sodium 100 mg capsule 100 mg PO DAILY PRN Constipation 10/10/20 10/02/23 Unknown History (Colace) letrozole 2.5 mg tablet 2.5 mg PO DAILY 10/10/20 10/02/23 Unknown History omeprazole 20 mg capsule,delayed 20 mg PO DAILY 10/10/20 10/02/23 Unknown History release palbociclib 125 mg capsule PO .[id number] 10/10/20 05/01/23 Unknown History apixaban 5 mg tablet (Eliquis) 5 mg PO BID 10/29/21 10/02/23 10/01/23 History fentanyl 12 mcg/hr transdermal 1 patch topical Q3D PRN Pain 10/29/21 10/02/23 09/30/22 History patch mirabegron 50 mg tablet,extended 50 mg PO DAILY 09/09/23 10/02/23 Unknown History release 24 hr (Myrbetriq) acetaminophen 500 mg tablet 1,000 mg PO TID PRN Pain 10/02/23 10/02/23 Unknown History albuterol sulfate 90 mcg/actuation 2 puff inhalation Q4H PRN 10/02/23 10/02/23 Unknown History aerosol inhaler Shortness Of Breath Or Wheezing cholecalciferol (vitamin D3) 50 50 mcg PO DAILY 10/02/23 10/02/23 Unknown History mcg (2,000 unit) capsule (Vitamin D3) multivitamin 1 tab PO QAM 10/02/23 10/02/23 Unknown History oxycodone 5 mg tablet 5 mg PO Q8H PRN Pain 10/02/23 10/02/23 09/30/22 History Exam Height,Weight and Vital Signs: Height 5 ft 7 in Weight 64.41 kg Assessment and Plan Assessment Anesthesia Assessment: Chart Reviewed Documented by User: Terry Obregon MD 10/05/23 10:13 [facility] Past Medical History Medical History (Updated 10/02/23 @ 09:22 by Margo Sebastian, ERIN) Constipation GERD (gastroesophageal reflux disease) Recent urinary tract infection OAB (overactive bladder) Anxiety Recent upper respiratory tract infection PND (post-nasal drip) Dental crowns present Lumbar compression fracture Thoracic compression fracture Scoliosis Environmental allergies Seasonal allergies History of cancer chemotherapy History of radiation therapy Atrial fibrillation Left breast mass History of bilateral breast cancer Family History Family History Father Lymphoma Maternal Aunt Pancreatic cancer Family history of problems with anesthesia: No Surgical History Surgical History History of lumpectomy of left breast (06/08/15) H/O colonoscopy History of nasal surgery History of tonsillectomy H/O right mastectomy (2005) History of Problems with Anesthesia: No Social History Social History (Updated 10/02/23 @ 09:22 by Margo Sebastian, RN) Are you a primary child care teacher to a significant other at home: No Do you presently have visiting nurse or other home services: No Patient Tobacco Use Status: Former Tobacco user Quit Date: Tobacco use type: Cigarette Use of substances other than those prescribed or required for medical reasons: No Have you been hit, kicked, punched, or otherwise hurt by someone within the past year? If so, by whom?: No Are you DNR?: No Advance Directives: No Advance Directives Information Provided: Yes Advance Directives on File: No Recently lost weight without trying: No Nutrition Risks: Surgical patient >75years Poor oral hygiene: No ( many capped teeth ) Meds Allergies Allergy/AdvReac Type Severity Reaction Status Date / Time moxifloxacin [From AVELOX] Allergy Severe HIVES,RASH Verified 10/01/23 15:52 Quinolones [QUINOLONES] Allergy Severe RASH Verified 10/01/23 15:52 adhesive tape Allergy Intermediate Itching, Verified 10/01/23 15:56 redness cefpodoxime [From Vantin] Allergy Intermediate Itching Verified 10/01/23 15:53 pneumococcal vaccine Allergy Intermediate TEMP, Verified 10/01/23 15:52 [PNEUMOCOCCAL VACCINE] SWELLING dust, cats,strong perfumes Allergy Intermediate scratchy Uncoded 10/01/23 15:53 throat, nasal stuffiness environmental Allergy Intermediate Nasal Uncoded 10/01/23 15:53 congestion seasonal allergies Allergy Intermediate Nasal Uncoded 10/01/23 15:53 congestion Home Medications Medication Instructions Recorded Confirmed Last Taken Type docusate sodium 100 mg capsule 100 mg PO DAILY PRN Constipation 10/10/20 10/02/23 Unknown History (Colace) letrozole 2.5 mg tablet 2.5 mg PO DAILY 10/10/20 10/02/23 Unknown History omeprazole 20 mg capsule,delayed 20 mg PO DAILY 10/10/20 10/02/23 Unknown History release palbociclib 125 mg capsule PO .[id number] 10/10/20 05/01/23 Unknown History apixaban 5 mg tablet (Eliquis) 5 mg PO BID 10/29/21 10/02/23 10/01/23 History fentanyl 12 mcg/hr transdermal 1 patch topical Q3D PRN Pain 10/29/21 10/02/23 09/30/22 History patch mirabegron 50 mg tablet,extended 50 mg PO DAILY 09/09/23 10/02/23 Unknown Hist ory release 24 hr (Myrbetriq) acetaminophen 500 mg tablet 1,000 mg PO TID PRN Pain 10/02/23 10/02/23 Unknown History albuterol sulfate 90 mcg/actuation 2 puff inhalation Q4H PRN 10/02/23 10/02/23 Unknown History aerosol inhaler Shortness Of Breath Or Wheezing cholecalciferol (vitamin D3) 50 50 mcg PO DAILY 10/02/23 10/02/23 Unknown History mcg (2,000 unit) capsule (Vitamin D3) multivitamin 1 tab PO QAM 10/02/23 10/02/23 Unknown History oxycodone 5 mg tablet 5 mg PO Q8H PRN Pain 10/02/23 10/02/23 09/30/22 History Exam Airway Mallampati Class: II TM Dist: >3cm Neck ROM: Full Loose/Missing/Broken Teeth: No Heart: rrr Lungs: cta Assessment and Plan Assessment Anesthesia Assessment: Anesthesia Plan Discussed Final Anesthetic Review Family History of Problems with Anesthesia: No History of Problems with Anesthesia: No NPO: Yes ASA Class: III Final Preanesthetic Review: No Changes in Pt Med Stat, Meds/Allgs Chart Reviewed, Consent Obtained/Reviewed and Anes Risks/Benef Reviewed Patient Risk: Intermediate Procedure Risk: Intermediate Anesthetic Plan Anesthetic Plan: GA Disposition: Standard PACU
[2023-10-05] VITALS (14 sets, daily range): BP systolic 137–175; BP diastolic 66–101; PULSE 79–102; RESP 14–20; TEMP 36.3–36.9; O2SAT 95–99; BMI 22.6
--- NOTE | 2023-10-05 09:55 | MHC.SHP ---
Pre-Procedural Eval Section A - 24 Hr Update-Section A only Date of Service: 10/05/23 The patient is an INPATIENT: No Changes since office visit: Yes Patient answered all questions; No Cold of Flu in the past 2 weeks, No New Medical Problems and No Changes in Medication The patient has been examined within 24 hours of the surgical procedure. The History & Physical has been completed within 30 days and I have reviewed it.: Yes Section B - Complete if H&P > 30 days Chief Complaint: Intraductal carcinoma in situ of left breast Allergies: Allergies Allergy/AdvReac Type Severity Reaction Status Date / Time moxifloxacin [From AVELOX] Allergy Severe HIVES,RASH Verified 10/01/23 15:52 Quinolones [QUINOLONES] Allergy Severe RASH Verified 10/01/23 15:52 adhesive tape Allergy Intermediate Itching, Verified 10/01/23 15:56 redness cefpodoxime [From Vantin] Allergy Intermediate Itching Verified 10/01/23 15:53 pneumococcal vaccine Allergy Intermediate TEMP, Verified 10/01/23 15:52 [PNEUMOCOCCAL VACCINE] SWELLING dust, cats,strong perfumes Allergy Intermediate scratchy Uncoded 10/01/23 15:53 throat, nasal stuffiness environmental Allergy Intermediate Nasal Uncoded 10/01/23 15:53 congestion seasonal allergies Allergy Intermediate Nasal Uncoded 10/01/23 15:53 congestion Plan Diagnosis/Plan: Unchanged I have reviewed the history and physical and performed a pertinent physical examination on my patient. No changes have occurred unless specified. Time Spent With Patient Time: Total time managing care of this patient today ____ minutes.
--- NOTE | 2023-10-05 10:11 | PHA.MEDREC ---
Pharmacy Consult ? Medication Reconciliation Pharmacy has completed the medication reconciliation. Reviewed med rec done by nursing
--- OUTSIDE RECORDS SUMMARY | 2023-10-05 10:12 | XMS_ITS | Continuity of Care Document ---
Author Name Unknown Organization [facility] Address [address] [place] [address]- Care Team Providers Care Point Of Care Technician Name Role Phone Jamison MAYA, Maggi Rose Primary Care Physician Encounter [facility] Date(s): 04/28/23 - 05/05/23 [facility] [address] [place] [address]- [place] Encounter Diagnosis Afib(Discharge Diagnosis) - 04/28/23 Attending Physician: Viki MAYA, Taylor Tripathi Referring Physician: Bean Smallwood MD Allergies, Adverse Reactions, Alerts Substance Reaction Severity Status Vantin Active moxifloxacin Active Avelox Active Seasonale Active pneumococcal vaccines Active Topical Skin Adhesive Active Immunizations Given and Recorded Vaccine Date Status Refusal Reason Zoster Vaccine Live 02/23/08 Given Medications amoxicillin 500 mg oral capsule 1 capsule = 500 mg, By Mouth, 3 times a day, 0 Refills, Maintenance, 01/28/23 16:12:00 EDT, Partialfill upon patient request if the prescription is for a schedule II opioid drug. Start Date: 01/28/23 Status: Ordered aspirin 81 mg oral delayed release tablet 81 mg, 1, tablet, By Mouth, Daily, Refills 0, Maintenance, 08/18/17 8:50:05 Start Date: 08/18/17 Status: Ordered Calcium Citrate Tablet Refills 0, Maintenance, 08/18/17 8:49:58 Start Date: 08/18/17 Status: Ordered Centrum Adults 1 tablet, By Mouth, Daily, 0 Refills, Maintenance, 08/18/17 8:49:48 Start Date: 08/18/17 Status: Ordered Colace Clear = 50 mg, By Mouth, 2 times a day, PRN as needed for constipation, 0 Refills, Maintenance, 11/24/22 13:57:00 EDT, Partial fill upon patient request if the prescription is for a schedule II opioid drug. Start Date: 11/24/22 Status: Ordered Eliquis 5 mg oral tablet 1 tablet = 5 mg, By Mouth, 2 times a day, # 60 tablet, 5 Refills, Maintenance, 11/24/22 13:54:00 EDT, Tablet, Partial fill upon patient request if the prescription is for a schedule II opioid drug. Start Date: 11/24/22 Status: Ordered fentanyl 12 mcg/hr transdermal film, extended release 1 patch, Topically, Every 72 hours, PRN Pain , Moderate, 0 Refills, Maintenance, 11/24/22 13:57:00 EDT, Patch, Partial fill upon patient request if the prescription is for a schedule II opioid drug. Start Date: 11/24/22 Status: Ordered Flonase 1 sprays, Daily, 0 Refills, Maintenance, 08/18/17 8:50:40 Start Date: 08/18/17 Status: Ordered Flonase 50 mcg/inh nasal spray Daily, PRN Congestion, 0 Refills, Maintenance, 11/24/22 13:58:00 EDT, Partial fill upon patient request if the prescription is for a schedule II opioid drug. Start Date: 11/24/22 Status: Ordered Ibrance 125 mg oral capsule 1 capsule = 125 mg, By Mouth, Daily, 0 Refills, Maintenance, 11/24/22 13:51:00 EDT, Partial fill upon patient request if the prescription is for a schedule II opioid drug. Start Date: 11/24/22 Status: Ordered letrozole 2.5 mg oral tablet 1 tablet = 2.5 mg, By Mouth, Daily, 0 Refills, Maintenance, 01/28/23 7:40:00 EDT, Partial fill uponpatient request if the prescription is for a schedule II opioid drug. Start Date: 01/28/23 Status: Ordered metoprolol succinate 25 mg oral capsule, extended release 1 capsule = 25 mg, By Mouth, Daily, 0 Refills, Maintenance, 11/24/22 13:54:00 EDT, Partial fill upon patient request if the prescription is for a schedule II opioid drug. Start Date: 11/24/22 Status: Ordered Myrbetriq 50 mg oral tablet, extended release 1 tablet = 50 mg, By Mouth, Daily, do not crush or chew, # 30 tablet, 0 Refills, Maintenance, 11/24/22 13:53:00 EDT, ER Tablet, Partial fill upon patient request if the prescription is for a scheduleII opioid drug. Start Date: 11/24/22 Status: Ordered omeprazole 20 mg oral delayed release tablet 1 tablet = 20 mg, By Mouth, Daily, 0 Refills, Maintenance, 08/18/17 8:50:13 Start Date: 08/18/17 Status: Ordered OxyContin By Mouth, Every 12 hours, PRN Pain , Moderate, 0 Refills, Maintenance, 11/24/22 13:58:00 EDT, Partial fill upon patient request if the prescription is for a schedule II opioid drug. Start Date: 11/24/22 Status: Ordered Tylenol Caplet = 500 mg, By Mouth, Every 8 hours, 0 Refills, Maintenance, 11/24/22 13:55:00 EDT, Partial fill uponpatient request if the prescription is for a schedule II opioid drug. Start Date: 11/24/22 Status: Ordered Vitamin D3 2000 intl units oral tablet 1 tablet = 2,000 International_Units, By Mouth, Daily, 0 Refills, Maintenance, 08/18/17 8:49:38 Start Date: 08/18/17 Status: Ordered Zofran ODT 4 mg oral tablet, disintegrating 1 tablet, By Mouth, Every 8 hours, PRN as needed for nausea/vomiting, 0 Refills, Maintenance, 11/24/22 13:56:00 EDT, DIS Tablet, Partial fill upon patient request if the prescription is for a schedule II opioid drug. Start Date: 11/24/22 Status: Ordered Zometa IVPB 4 mg, IV Infusion, Maintenance, 11/24/22 13:52:00 EDT Start Date: 11/24/22 Status: Ordered Problem List Diagnosis Diagnosis Type Effective Dates Health Status Clini jered Service Informant Afib Discharge Diagnosis 04/28/23 Vital Signs Most recent to oldest [Reference Range]: 1 Height 173 cm (04/28/23 12:29 PM) Weight 66.5 kg (04/28/23 12:29 PM) Oxygen Saturation [94-100 %] 97 % (04/28/23 12:29 PM) Pulse Rate [55-90 bpm] 88 bpm (04/28/23 12:29 PM) Body Mass Index [18.5-24.99 kg/m2] 22.22 kg/m2 (04/28/23 12:29 PM) Blood Pressure [90-138/55-84 mm Hg] 136/ 72mm Hg (04/28/23 12:29 PM) Mode of Delivery (Oxygen) Room air (04/28/23 12:29 PM) Blood pressure sites Arm, left (04/28/23 12:29 PM) Weight Obtained Via Bed scale (04/28/23 12:29 PM) Social History Social History Type Response Smoking Status Former smoker, quit more than 30 days ago entered on: 04/02/23 Sex Cardiology Outpatient Note * Viki MAYA, Taylor Tripathi: PERFORM Event Display: Cardiology Note Office Authored Date: [id number] Patient: ??RUFINO LOPES ? Age:??78 Years?Sex:??Female?:??1945?? Indication for Consult follow up care History of Present Illness/Interval History Ms.?? Chuck is a 78 y/o female with history of breast cancer and PAF who presents to clinic for follow-up of afib.? She states she was sick last week.?? She also is seeking a principal technical writer due to nail and feet issues.?? She states otherwise, she is doing well.?? She is active. Review of Systems Pertinent positives as per the HPI.?? All other systems were reviewed and were negative Physical Exam Vitals & Measurements HR:??88??(Peripheral)?? BP:??136/72?? SpO2:??97%?? HT:??173??cm?? WT:??66.5??kg?? BMI:??22.22?? Weight lb/oz: 146 lb 10 oz General:??In no acute distress HEENT:??Sclerae anicteric, mucous membranes moist Cardiovascular: ??Regular rhythm, normal first and second heart sounds.?? No murmurs or gallops.?No JVP Extremities: Warm,??noedema Neuro:??Nonfocal Psych: Alert and oriented with appropriate affect. Assessment/Plan 1.??Afib ?-CHADSVASC score of 3; continue Eliquis.?? We discussed risks versus benefits. -She did see EP and Metoprolol stopped.?? -denies symptoms. -echo done??previously showed mild to moderate MS. Given mild to moderate, will continue Eliqiuis for now. Repeat echo at next visit. 2.?? Patient will return to clinic in??6 months.?? Patient voiced understanding and agreement to above plan and all questions were answered.?? Allergies Avelox Seasonale Topical Skin Adhesive Vantin moxifloxacin pneumococcal vaccines Home Medications amoxicillin 500 mg oral capsule, 500 mg= 1 capsule, By Mouth, 3 times a day Calcium Citrate Tablet Centrum Adults, 1 tablet, By Mouth, Daily Colace Clear, 50 mg, By Mouth, 2 times a day, PRN Eliquis 5 mg oral tablet, 5 mg= 1 tablet, By Mouth, 2 times a day fentanyl 12 mcg/hr transdermal film, extended release, 1 patch, Topically, Every 72 hours, PRN Flonase, 1 sprays, Daily Flonase 50 mcg/inh nasal spray, Daily, PRN Ibrance 125 mg oral capsule, 125 mg= 1 capsule, By Mouth, Daily letrozole 2.5 mg oral tablet, 2.5 mg= 1 tablet, By Mouth, Daily Myrbetriq 50 mg oral tablet, extended release, 50 mg= 1 tablet, By Mouth, Daily omeprazole 20 mg oral delayed release tablet, 20 mg= 1 tablet, By Mouth, Daily OxyContin, By Mouth, Every 12 hours, PRN Tylenol Caplet, 500 mg, By Mouth, Every 8 hours Vitamin D3 2000 intl units oral tablet, 2000 International_Units= 1 tablet, By Mouth, Daily Zofran ODT 4 mg oral tablet, disintegrating, 1 tablet, By Mouth, Every 8 hours, PRN Zometa IVPB, 4 mg, IV Infusion Diagnostic Impression ECG ECG 12-Lead ?? 15:18:06 Please click on pdf link to open report ?? Signed By: Julianna MAYA, Salvatore Ruth ?? ECG 12-Lead ?? 15:18:06 Ventricular Rate: 85 BPM Atrial Rate: 85 BPM P-R Interval: 158 ms QRS Duration: 116 ms Q-T Interval: 410 ms QTC Calculation(Bazett): 487 ms P [place]: 58 degrees R [place]: -34 degrees T [place]: 98 degrees Normal sinus rhythm Left axis deviation Inferior infarct (cited on or before 02-APR-2023) Anteroseptal infarct (cited on or before 02-APR-2023) Abnormal ECG When compared with ECG of 24-NOV-2022 12:32, No significant change was found Confirmed by SALVATORE GALVAN ([id number]) on 04/02/2023 5:51:09 PM ?? Berkley: SALVATORE GALVAN ?? Signed By: Salvatore Galvan MD Problem List/Past Medical History Ongoing No qualifying data Procedure/Surgical History No qualifying data available. Social History Tobacco Use: Former smoker, quit more than 30 days ago. Family History No family history recorded. Patient Care team information Care Team Personnel Name: Maggi Swift MD Position: [facility] Outreach Member Role: PCP Address: Address: [facility] [address] [place] [address]- Name: Cari Stevens NP Position: [facility] Outreach Member Role: Lifetime Consulting Physician Address: Address: [facility] [address] [place], [place] [address] Care Team Related Persons Name: SADA LOPES Name: JUAN FRANCISCO LOPES Name: LAILA LOPES Address: [place] [address] [address]
--- OUTSIDE RECORDS SUMMARY | 2023-10-05 10:12 | XMS_ITS | Continuity of Care Document ---
Author Name Unknown Organization [facility] Address [address] [place] [address]- Care Team Providers Care Obiee Consultant Name Role Phone Maggi Swift MD Primary Care Physician Encounter [facility] Date(s): 08/06/23 - 09/05/23 [facility] [address] [place] [address]- Allergies, Adverse Reactions, Alerts Substance Reaction Severity [...] 13:52:00 EDT Start Date: 11/24/22 Status: Ordered Social History Social History Type Response Smoking Status Former smoker, quit more than 30 days ago entered on: 04/02/23 Sex Patient Care team information Care Team Personnel Name: Maggi Swift MD Position: [facility] Outreach Member Role: PCP Address: Address: [address] [place] [address]- Name: Cari Stevens NP Position: [facility] Outreach Member Role: Lifetime Consulting Physician Address: Address: [address] [place] [address]- Care Team Related Persons Name: SADA LOPES Name: JUAN FRANCISCO LOPES Name: LAILA LOPES Address: [address] [place] [address]
--- OUTSIDE RECORDS SUMMARY | 2023-10-05 10:12 | XMS_ITS | Continuity of Care Document ---
Author Name Unknown Organization [facility] Address [address] [place] [address]- Care Team Providers Care Stone Chimney Mason Name Role Phone Grant Smallwood MD Primary Care Physician Unavail able Encounter [facility] Date(s): 10/20/22 - 11/19/22 [facility] [address] [place] [address]- [place] Allergies, Adverse Reactions, Alerts Substance Reaction Severity Status moxifloxacin Active Avelox Active Seasonale Active pneumococcal vaccines Active Immunizations Given and Recorded Vaccine Date Status Refusal Reason Zoster Vaccine Live 02/23/08 Given Medications aspirin 81 mg oral delayed release tablet 81 mg, 1, tablet, By Mouth, Daily, Refills 0, Maintenance, 08/18/17 8:50:05 Start Date: 08/18/17 Status: Ordered Calcium Citrate Tablet Refills 0, Maintenance, 08/18/17 8:49:58 Start Date: 08/18/17 Status: Ordered Centrum Adults 1 tablet, By Mouth, Daily, 0 Refills, Maintenance, 08/18/17 8:49:48 Start Date: 08/18/17 Status: Ordered Flonase 1 sprays, Daily, 0 Refills, Maintenance, 08/18/17 8:50:40 Start Date: 08/18/17 Status: Ordered omeprazole 20 mg oral delayed release tablet 1 tablet = 20 mg, By Mouth, Daily, 0 Refills, Maintenance, 08/18/17 8:50:13 Start Date: 08/18/17 Status: Ordered Vitamin D3 2000 intl units oral tablet 1 tablet = 2,000 International_Units, By Mouth, Daily, 0 Refills, Maintenance, 08/18/17 8:49:38 Start Date: 08/18/17 Status: Ordered Patient Care team information Care Team Personnel Name: Grant Smallwood MD Position: [facility] Outreach Member Role: PCP Name: Hilda SINGER, Cari Lundy Position: [facility] Outreach Member Role: Lifetime Consulting Physician Address: Address: [facility] [address] [place] [address]- Care Team Related Persons Name: SADA LOPES Name: JUAN FRANCISCO LOPES Name: LAILA LOPES Address: [address] [place] [address]
--- OUTSIDE RECORDS SUMMARY | 2023-10-05 10:12 | XMS_ITS | Continuity of Care Document ---
Author Name Unknown Organization [facility] Address [address] [place] [address]- Care Team Providers Care Wire Stripping Machine Operator Name Role Phone Selin MAYA, Grant Primary Care Physician Unavail able Encounter [facility] Date(s): 01/30/23 - 03/01/23 [facility] [address] [place] [address]- [place] Allergies, Adverse Reactions, Alerts Substance Reaction [...] 13:52:00 EDT Start Date: 11/24/22 Status: Ordered Patient Care team information Care Team Personnel Name: Grant Smallwood MD Position: [facility] Outreach Member Role: PCP Name: Maggi Swift MD Position: S Outreach Member Role: Lifetime Consulting Physician Address: Address: [facility] [address] [place] [address]- Name: Cari Stevens NP Position: [facility] Outreach Member Role: Lifetime Consulting Physician Address: Address: [address] [place] [address]- Care Team Related Persons Name: SADA LOPES Name: JUAN FRANCISCO LOPES Name: LAILA LOPES Address: [address] [place] [address]
--- OUTSIDE RECORDS SUMMARY | 2023-10-05 10:14 | XMS_ITS | Continuity of Care Document ---
Author Name Unknown Organization [facility] Address [address] [place] [address]- Care Team Providers Care Dj Instructor Name Role Phone Jamison MAYA, Maggi Rose Primary Care Physician Encounter [facility] Date(s): 04/02/23 - 05/02/23 [facility] [address] [place] [address]- Attending Physician: Jill Husain Admitting Physician: Jill Husain Referring Physician: AdmtrJill Allergies, Adverse Reactions, Alerts Substance Reaction Severity [...] days ago entered on: 04/02/23 Sex Cardiology * Event Display: Non [facility] Cardiovascular Results Authored Date: * Event Display: Non [facility] Cardiovascular Results Authored Date: * Event Display: Non [facility] Cardiovascular Results Authored Date: Radiology * Event Display: CT Scan Abdomen, Non- [facility] Authored Date: * Event Display: CT Scan Chest, Non- [facility] Authored Date: * Event Display: CT Scan Chest, Non- [facility] Authored Date: Patient Care team information Care Team Personnel Name: Maggi Swift MD Position: [facility] Outreach Member Role: PCP Address: Address: [address] Name: Hilda SINGER, Cari Lundy Position: [facility] Outreach Member Role: Lifetime Consulting Physician Address: Address: [facility] [address] [place], [place] [address] Care Team Related Persons Name: SADA LOPES Name: JUAN FRANCISCO LOPES Name: LAILA LOPES Address: [address] [place] [address]
--- OUTSIDE RECORDS SUMMARY | 2023-10-05 10:14 | XMS_ITS | Continuity of Care Document ---
Author Name Unknown Organization [facility] Address [address] [place] [address]- Care Team Providers Care Engineering Professionals Name Role Phone Selin MAYA, Grant Primary Care Physician Unavail able Encounter [facility] Date(s): 12/30/22 - 01/06/23 [facility] [address] [place] [address]- Attending Physician: Tolu Epperson MD Allergies, Adverse Reactions, Alerts Substance Reaction [...] opioid drug. Start Date: 11/24/22 Status: Ordered metoprolol succinate 25 mg oral [...] Team Personnel Name: Grant Smallwood MD Position: [facility] Outreach Member Role: PCP Name: Maggi Swift MD Position: S Outreach Member Role: Lifetime Consulting Physician Address: Address: [facility] [address] [place] [address]- Name: Hilda SINGER, Cari Lundy Position: [facility] Outreach Member Role: Lifetime Consulting Physician Address: Address: [facility] [address] [place], [place] [address] Care Team Related Persons Name: SADA LOPES Name: JUAN FRANCISCO LOPES Name: LAILA LOPES Address: [address] [address]
--- OUTSIDE RECORDS SUMMARY | 2023-10-05 10:14 | XMS_ITS | Continuity of Care Document ---
Author Name Unknown Organization [facility] Address [address] [place] [address]- Care Team Providers Care Rope Maker Name Role Phone Selin MAYA, Grant Primary Care Physician Unavail able Encounter [facility] Date(s): 11/26/22 - 12/26/22 [facility] [address] [place] [address]- [place] Attending Physician: Jill Husain Admitting Physician: Jill [...] 13:52:00 EDT Start Date: 11/24/22 Status: Ordered Cardiology * Event Display: Non [facility] Cardiovascular Results Authored Date: [id number] * Event Display: Non [facility] Cardiovascular Results Authored Date: [id number] * Event Display: Non [facility] Cardiovascular Results Authored Date: Patient Care team information Care Team Personnel Name: Grant Smallwood MD Position: [facility] Outreach Member Role: PCP Name: Hilda SINGER, Cari Lundy Position: S Outreach Member Role: Lifetime Consulting Physician Address: Address: [address] [place] [address] [address] [place], [place] [address] Care Team Related Persons Name: SADA LOPES Name: JUAN FRANCISCO LOPES Name: LAILA LOPES Address: [address] [address]
--- OUTSIDE RECORDS SUMMARY | 2023-10-05 10:14 | XMS_ITS | Continuity of Care Document ---
Author Name Unknown Organization [facility] Address [address] [place] [address]- Care Team Providers Care State Superintendent Of Schools Name Role Phone Selin MAYA, Grant Primary Care Physician Unavail able [place] [facility] [place]s): 12/30/22 - 01/29/23 [facility] [address] [place] [address]- [place] Attending Physician: Jill Husain Admitting Physician: [...] Team Personnel Name: Grant Smallwood MD Position: S Outreach Member Role: PCP Name: Maggi Swift MD Position: S Outreach Member Role: Lifetime Consulting Physician Address: Address: [address] [place] [address] Name: Hilda SINGER, Cari Lundy Position: [facility] Outreach Member Role: Lifetime Consulting Physician Address: Address: [facility] [address] [place] [address]- Care Team Related Persons Name: SADA LOPES Name: JUAN FRANCISCO LOPES Name: LAILA LOPES Address: [address] [place] [address]
[2023-10-05 10:16] LABS: Hematocrit 34.1 % (37.0-47.0); Mean Corpuscular HGB Conc 35.2 g/dl (31.0-35.0); Mean Corpuscular Hemoglobin 35.6 pg (27.0-33.0); Mean Corpuscular Volume 101.2 fL (80.0-98.0); Mean Platelet Volume 9.8 fL (9.4-12.3); Red Blood Count 3.37 X10*6/uL (4.20-5.50); Red Cell Distribution Width 15.2 % (11.0-16.0)
[2023-10-05 10:17] LABS: Platelet Count 96 X10*3/uL (160-400); White Blood Count 2.2 X10*3/uL (4.8-10.8)
[2023-10-05] MEDS: vancomycin HCL 1,000 MG in 0.9 % Sodium Chloride 250 ML 270 MG IV (10:24)
[2023-10-05 10:30] LABS: Anion Gap 15 (12-20); Blood Urea Nitrogen 20 mg/dL (9-16); Calcium 9.8 mg/dL (8.4-10.2); Carbon Dioxide 26 mmol/L (22-29); Chloride 101 mmol/L (96-108); Creatinine Clr Calc Pharmacy 62.5; Estimated Glomerular Filt Rate > 60; Glucose Fasting 103 mg/dL (60-99); Potassium 3.8 mmol/L (3.3-5.1); Sodium 138 mmol/L (135-145)
[2023-10-05] MEDS: Lactated Ringers 1,000 ML 100 ML IVCONT ×3 (10:37→22:31)
--- NOTE | 2023-10-05 10:49 | W.PM.OPN ---
Operative Note Operative Note Date of Service: 10/05/23 Narrative: Preoperative diagnosis: DCIS left breast, history of metastatic breast cancer Postoperative diagnosis: Same Procedure: Left simple mastectomy Surgeon: Horace Gaspar MD District Sales Representative: Sara Jones PA-C, KRIS Gonsalves Anesthesia: General LMA Indications for procedure: 78-year-old female patient with history of metastatic breast cancer now presenting with a new left breast DCIS, ER/ID negative and a previously radiated breast. Operative findings: Biopsy site in mid left breast with surrounding inflammatory ecchymotic changes Specimen: Left breast Estimated blood loss: 3 mL Complications: None Drains: Dank-Gonzalez x1 Procedure details: Patient brought to the OR and placed in a supine position. After administering general anesthesia the patient's left breast was prepped with ChloraPrep and draped in a sterile fashion. A surgical time-out was called the consent confirmed. Patient received preoperative antibiotics and Venodyne boots were in place. A pectoral block was placed by anesthesia prior to the procedure. An elliptical incision to include the nipple-areolar complex was then created in a tangential manner from the lower sternum towards the axilla. Incision was begun at the upper flap carried down to the subcutaneous tissue. Skin was then elevated and electrocautery used to dissect the skin off the breast tissue up to the clavicle. Attention was then directed to the lower flap were again skin flap was dissected down to the costal margin. Breast was then dissected off the chest from medial to lateral superior to inferior using electrocautery. Hemostasis was assured using free ties of 3-0 Polysorb tie. The specimen was then excised completely and sent to pathology for further examination. A long suture was placed on the lateral margin and short suture on the superior margin. Wounds were then irrigated with saline solution and suctioned dry. Wounds were again checked for hemostasis. A large flat Dank-Gonzalez drain was then placed through a separate stab incision and secured using a 3-0 nylon suture. Dermis was then reapproximated using interrupted 3-0 Polysorb sutures. Skin was then closed using a running subcuticular 4-0 Polysorb suture. Steri-Strips 4 x 4 gauze and Tegaderm were then applied. Breast binder was then applied. The patient tolerated the procedure well. Sponge, instrument, and needle counts reported as correct. The patient was transferred to PACU in stable condition.
[2023-10-05] MEDS: ondansetron HCL 4 MG/2 ML VIAL IVPUSH (14:42)
[2023-10-05] MEDS: Letrozole 2.5 MG TABLET PO (22:09)
[2023-10-05] MEDS: Acetaminophen 325 MG TABLET 975 MG PO (22:10)
[2023-10-06] MEDS: Lactated Ringers 1,000 ML 100 ML IVCONT (00:10)
[2023-10-06 03:51] VITALS: BP 139/77; PULSE 86; RESP 19; TEMP 36.6; O2SAT 98
[2023-10-06 07:09] VITALS: BP 135/75; PULSE 88; RESP 20; TEMP 37.2; O2SAT 98
--- NOTE | 2023-10-06 07:29 | P.PNGS_ITS ---
Subjective Subjective Date of Service: 10/06/23 Interval history: Overall feels well, denies significant incisional pain. Reports some nausea during the night but improved this morning. Physical Exam 2 Vital Signs: Vital Signs: Last Vital Signs Temp 98.9 F 10/06/23 07:09 Pulse 88 10/06/23 07:09 Resp 20 10/06/23 07:09 BP 135/75 10/06/23 07:09 Pulse Ox 98 10/06/23 07:09 O2 Del Method Room Air 10/06/23 07:09 O2 Flow Rate 2 10/05/23 16:00 BMI result Body Mass Index 22.6 Const: General: no acute distress Nutritional Appearance: well nourished Orientation/consciousness: patient oriented x3 Limitations: no limitations Chest: Other: binder in place; MEGAN 20-30 mls /shift, mainly bloody fluid dressings clean and intact Resp: Effort & Inspection: normal respiratory effort Skin: Other: warm and dry Neuro: General: patient oriented x3 Extrem: Other: No edema Objective Data Active Medications Acetaminophen (Acetaminophen 325 Mg Tablet) 975 mg PO TID PRN PRN Reason: Pain Last Admin: 10/05/23 22:10 Dose: 975 mg Documented By: KAYLIN Albuterol Sulfate (Albuterol Sulfate 90 Mcg 8 Gm Inhaler) 2 puff INHALE Q4H PRN PRN Reason: Shortness Of Breath Or Wheezing Apixaban (Apixaban 5 Mg Tablet) 5 mg PO BID KI Docusate Sodium (Docusate Sodium 100 Mg Capsule) 100 mg PO DAILY PRN PRN Reason: Constipation Hydromorphone HCl (Hydromorphone Hcl 0.5 Mg/0.5 Ml Syringe) 0.5 mg IVPUSH Q3H PRN; Protocol PRN Reason: Pain, Severe (Pain Scale 7-10) Lactated Ringer's (Lr) 1,000 mls @ 100 mls/hr IVCONT .Q10H KI Last Admin: 10/06/23 00:10 Dose: 100 mls/hr Documented By: KAYLIN Letrozole (Letrozole 2.5 Mg Tablet) 2.5 mg PO DAILY KI Mirabegron (Mirabegron 50 Mg Tab.Er.24h) 50 mg PO DAILY KI Oxycodone HCl (Oxycodone Hcl Immed Release 5 Mg Tablet) 5 mg PO Q8H PRN PRN Reason: Pain, Moderate(Pain Scale 4-6) Labs 10/05/23 10:07 10/05/23 10:07 Labs: Laboratory Results - last 24 hr 10/05/23 10:07 MCV 101.2 H MCH 35.6 H MCHC 35.2 H RDW 15.2 Plt Count 96 L MPV 9.8 Absolute Nucleated RBC 0.000 Nucleated RBC % (auto) 0.0 Anion Gap 15 Estim Creat Clear Calc 62.5 Estimated GFR > 60 Fasting Glucose 103 H Calcium 9.8 Blood Type O Positive Antibody Screen NEGATIVE Procedures Date of Service Date of Service: 10/06/23 Progress Note: A&P Assessment and plan (1) Ductal carcinoma in situ (DCIS) of left breast: Status: Acute (2) History of bilateral breast cancer: Status: Acute Plan POD #1 s/p left simple mastectomy. Patient remains hemodynamically stable. MEGAN with minimal output. Wounds clean and intact. Continue breast binder. Encouraged deep breathing exercises, OOB and ambulation. Case management consult for possible short term rehab. PT consult. Time Spent With Patient Time: Total time managing care of this patient today ____ minutes. Quality Stroke Does the patient have a stroke diagnosis?: No VTE Prior VTE?: No VTE Risk Level:: Surgical - moderate VTE Device Contraindication: N/A - Device Ordered VTE Drug Contraindication: N/A - Med Ordered (On Eliquis for AFib)
[2023-10-06 08:30] VITALS: BP 135/75; PULSE 88; O2SAT 98
[2023-10-06] MEDS: Mirabegron 50 MG TAB.ER.24H PO (08:55)
--- NOTE | 2023-10-06 09:08 | MHC.CM.PN ---
CM met with Patient at bedside and addressed IMM with her, providing Patient with the original and a copy has been placed on the chart. Patient lives alone in a condo and was using no DME nor services [employer]. Patient's first choice is [facility] but PT is recommending home with services. Patient was active with [facility] in the past and she is requesting a referral be sent to them again. CM has initiated and will follow for dc planning. PCP's office(Dr. Maggi Swift) is faxing over a copy of the HCP.
[2023-10-06] MEDS: Cholecalciferol (Vitamin D3) 25 MCG TABLET 50 MCG PO (11:43)
[2023-10-06] MEDS: Multivitamin TABLET 1 TAB PO (11:43)
--- NOTE | 2023-10-06 11:43 | HO.POSTANES ---
Post Anesthesia Evaluation Post Anesthesia Evaluation Date of Service: 10/06/23 Vital Signs: Vital Signs Temp Pulse Resp BP Pulse Ox O2 Del Method 10/06/23 08:30 88 135/75 98 10/06/23 07:09 98.9 F 88 20 135/75 98 Room Air 10/06/23 03:51 97.9 F 86 19 139/77 98 Room Air Anesthesia: Nerve Block and General Mental Status: Awake Pain Control: Satisfactory Nausea/Vomiting: None Hydration: Adequate Anesthesia-Related Issues: No Anes. Related Issues
[2023-10-06] MEDS: Letrozole 2.5 MG TABLET PO (11:45)
--- NOTE | 2023-10-06 12:31 | MHC.CM.PN ---
CM met with Patient and her 2 Brothers at bedside; all feel that Patient needs STR. CM explained Pt's recommendation and informed Patient that [facility] (Patient's first choice facility) [facility] denied [facility]. Per Patient/family's request, PT met with them and addressed all questions; PT will work with Patient again tomorrow. CM will follow.
--- NOTE | 2023-10-06 13:46 | MHC.CM.PN ---
A referral has been made to Patient's second choice SNF([facility] [place]); CM will follow.
[2023-10-06] MEDS: Acetaminophen 325 MG TABLET 975 MG PO ×2 (14:29→23:50)
[2023-10-06 15:06] VITALS: BP 134/74; PULSE 88; RESP 20; TEMP 36.6; O2SAT 96
[2023-10-06 19:03] VITALS: BP 116/66; PULSE 90; RESP 20; TEMP 36.7; O2SAT 95
[2023-10-06] MEDS: Docusate Sodium 100 MG CAPSULE PO (21:00)
[2023-10-07 03:16] VITALS: BP 137/87; PULSE 88; RESP 20; TEMP 36.2; O2SAT 97
[2023-10-07 07:22] VITALS: BP 137/87; PULSE 88; O2SAT 97
[2023-10-07 07:53] VITALS: BP 157/82; PULSE 70; RESP 20; TEMP 36.7; O2SAT 98
[2023-10-07] MEDS: Omeprazole 20 MG CAPSULE.DR PO (09:08)
[2023-10-07] MEDS: Mirabegron 50 MG TAB.ER.24H PO (09:08)
[2023-10-07] MEDS: Cholecalciferol (Vitamin D3) 25 MCG TABLET 50 MCG PO (09:09)
[2023-10-07] MEDS: Letrozole 2.5 MG TABLET PO (09:09)
[2023-10-07] MEDS: Multivitamin TABLET 1 TAB PO (09:09)
--- NOTE | 2023-10-07 09:10 | MHC.CM.PN ---
PT is now recommending STR and CM will continue to follow.
--- NOTE | 2023-10-07 10:26 | PM.PNGS ---
Subjective Subjective Date of Service: 10/07/23 Interval history: Remains comfortable with PO tylenol. Tolerating diet. C/o more back and leg pain today. Participating with PT. Physical Exam Vital Signs: Vital Signs: Last Vital Signs Temp 98.1 F 10/07/23 07:53 Pulse 70 10/07/23 07:53 Resp 20 10/07/23 07:53 BP 157/82 H 10/07/23 07:53 Pulse Ox 98 10/07/23 07:53 O2 Del Method Room Air 10/07/23 07:53 O2 Flow Rate 2 10/05/23 16:00 BMI result Body Mass Index 22.6 Const: General: comfortable, no acute distress and alert Orientation/consciousness: patient oriented x3 Chest: Other: left mastectomy incision clean, no erythema MEGAN drain with serosanguineous drainage, scant Resp: Effort & Inspection: normal respiratory effort Skin: General skin exam: no rashes or lesions noted Neuro: General: patient oriented x3 Objective Data Active Medications Acetaminophen (Acetaminophen 325 Mg Tablet) 975 mg PO TID PRN PRN Reason: Pain Last Admin: 10/06/23 23:50 Dose: 975 mg Documented By: ISIS Albuterol Sulfate (Albuterol Sulfate 90 Mcg 8 Gm Inhaler) 2 puff INHALE Q4H PRN PRN Reason: Shortness Of Breath Or Wheezing Apixaban (Apixaban 5 Mg Tablet) 5 mg PO BID [facility] Last Admin: 10/07/23 07:39 Dose: Not Given Documented By: ALEXIS Non-Admin Reason: Patient Refused Docusate Sodium (Docusate Sodium 100 Mg Capsule) 100 mg PO DAILY PRN PRN Reason: Constipation Last Admin: 10/06/23 21:00 Dose: 100 mg Documented By: DOBROB Guaifenesin (Guaifenesin 200 Mg/10 Ml 10 Ml Liquid) 10 ml PO Q6H PRN PRN Reason: cough, post nasal drip Hydromorphone HCl (Hydromorphone Hcl 0.5 Mg/0.5 Ml Syringe) 0.5 mg IVPUSH Q3H PRN; Protocol PRN Reason: Pain, Severe (Pain Scale 7-10) Letrozole (Letrozole 2.5 Mg Tablet) 2.5 mg PO DAILY [facility] Last Admin: 10/07/23 09:09 Dose: 2.5 mg Documented By: ALEXIS Mirabegron (Mirabegron 50 Mg Tab.Er.24h) 50 mg PO DAILY [facility] Last Admin: 10/07/23 09:08 Dose: 50 mg Documented By: ALEXIS Multivitamins/Vitamin C (Multivitamin Tablet) 1 tab PO DAILY@0900 [facility] Last Admin: 10/07/23 09:09 Dose: 1 tab Documented By: ALEXIS Omeprazole (Omeprazole 20 Mg Capsule.Dr) 20 mg PO DAILY [facility] Last Admin: 10/07/23 09:08 Dose: 20 mg Documented By: ALEXIS Oxycodone HCl (Oxycodone Hcl Immed Release 5 Mg Tablet) 5 mg PO Q8H PRN PRN Reason: Pain, Moderate(Pain Scale 4-6) Vitamin D (Cholecalciferol (Vitamin D3) 25 Mcg Tablet) 50 mcg PO DAILY [facility] Last Admin: 10/07/23 09:09 Dose: 50 mcg Documented By: ALEXIS Labs 10/05/23 10:07 10/05/23 10:07 Labs: Laboratory Results - last 24 hr 10/05/23 10:07 Smear Path Review SEE NOTE Procedures Date of Service Date of Service: 10/07/23 Progress Note: A&P Assessment and plan (1) Ductal carcinoma in situ (DCIS) of left breast: Status: Acute Plan POD #2 s/p left simple mastectomy. Doing well post operatively, patient with good pain control and remains hemodynamically stable. Wounds clean, MEGAN with scant serosanguineous output. Continue breast binder, IS use, OOB and ambulation. PT now recommending dc to STR which is arranged for tomorrow. No BM since 10/02. Will add bowel regimen. Time Spent With Patient Time: Total time managing care of this patient today ____ minutes. Quality Stroke Does the patient have a stroke diagnosis?: No VTE Prior VTE?: No VTE Risk Level:: Surgical - moderate VTE Device Contraindication: N/A - Device Ordered VTE Drug Contraindication: N/A - Med Ordered (On Eliquis for AFib)
[2023-10-07 10:43] LABS: Influenza A PCR NEGATIVE (Negative); Influenza B PCR NEGATIVE (Negative); Resp Syncy Virus RNA Qual PCR NEGATIVE (Negative); SARS COV2 PCR INHOUSE NEGATIVE (Negative)
[2023-10-07] MEDS: Docusate Sodium 100 MG CAPSULE PO (12:09)
[2023-10-07] MEDS: polyethylene glycoL 3350 17 GM POWD.PACK PO (12:09)
[2023-10-07] MEDS: guaiFENesin 200 MG/10 ML 10 ML LIQUID PO (12:09)
[2023-10-07] MEDS: Acetaminophen 325 MG TABLET 975 MG PO ×2 (12:09→20:24)
[2023-10-07 14:56] VITALS: BP 110/71; PULSE 88; RESP 20; TEMP 36.2; O2SAT 96
[2023-10-07 19:00] VITALS: BP 125/72; PULSE 97; RESP 18; TEMP 36.4; O2SAT 96
[2023-10-08 04:00] VITALS: BP 152/79; PULSE 75; RESP 18; TEMP 37; O2SAT 98
[2023-10-08] MEDS: Acetaminophen 325 MG TABLET 975 MG PO (06:10)
[2023-10-08 07:32] VITALS: BP 154/84; PULSE 82; RESP 20; TEMP 36.1; O2SAT 98
[2023-10-08] MEDS: Multivitamin TABLET 1 TAB PO (08:14)
[2023-10-08] MEDS: Letrozole 2.5 MG TABLET PO (08:14)
[2023-10-08] MEDS: Omeprazole 20 MG CAPSULE.DR PO (08:14)
[2023-10-08] MEDS: Apixaban 5 MG TABLET PO (08:14)
[2023-10-08] MEDS: Cholecalciferol (Vitamin D3) 25 MCG TABLET 50 MCG PO (08:14)
[2023-10-08] MEDS: Mirabegron 50 MG TAB.ER.24H PO (08:16)
--- NOTE | 2023-10-08 08:55 | MHC.CM.PN ---
Per discussion with Surgeon, Patient will be medically cleared for dc to STR today. Patient will dc to [facility] today at 1PM, via private transport(CM cleared this with surgeon). Last IMM addressed on 10/06/2023.
--- NOTE | 2023-10-08 11:43 | P.DS_ITS ---
DS: Providers Provider Date of Service: 10/08/23 Date of admission: 10/05/23 10:04 Date of discharge: 10/08/23 Primary care physician: Maggi Swift MD Admitting clinician: Horace Gaspar Discharging clinician: Horace Gaspar DS: Transfer Hospital Acceptance Reason for Transfer: Short term rehabilitation Name of Facility: [facility] DS: Diagnosis Discharge Diagnosis (1) Ductal carcinoma in situ (DCIS) of left breast: Status: Acute DS: Summary Hospital Course Hospital Course: Daniela Woods is a 78-year-old female returning today to review results of her recent stereotactic guided core biopsy performed at [facility]. 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 She initially developed a right breast cancer treated by Dr. Armendariz and subsequently developed a recurrence right breast cancer requiring a right modified radical mastectomy in 2005. She later developed a left breast carcinoma treated by Dr. San with a left breast lumpectomy and left axillary sentinel node biopsy on 06/08/2015.? Pathology revealed a 1 cm grade 1 infiltrating ductal carcinoma ER SC negative, HER2 Tejas negative.? Margins were clear however the inferior margin was close initially and re-excision performed with widely clear margin.? The 1 sentinel node was benign.? She subsequently underwent TC chemotherapy at [facility] under the direction of Dr. Huntley and radiation therapy also at [facility] with Dr. Walker, completed in December 2015. She was diagnosed with metastatic breast cancer with spread to her spine felt to be related to her right breast carcinoma which was a mixed ductal and lobular carcinoma, ER SC positive, 9.5 cm in greatest diameter with 2 of 14 right axillary lymph nodes positive for metastasis.? The HER2 Tejas was equivocal by IHC and not over expressed by FISH.? She reported back pain which was initially thought to be due to arthritis but after a bone scan, metastatic disease was noted in the ribs, skull, and back.? 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 A biopsy of metastatic lesion at L4 revealed estrogen positive tumor, positive for over expression of her 2 Tejas.? She received radiation therapy to her back and subsequently received Taxol, Herceptin, and Perjeta.? She is also receiving Zometa for her bones (Dr. Huntley).? She denies any ongoing breast symptoms but does report left hip pain. Bone scan of 07/29/2021 reveals multifocal osseous disease consistent with chronic metastatic disease. Screening mammogram of 07/22/2023 with follow-up diagnostic images of the left breast of 09/01/2023 revealed a cluster of calcifications in the left breast spanning approximately 3.3 cm. She subsequently underwent stereotactic guided core biopsy at [facility] and the pathology revealed DCIS, ER/SC negative. Patient was provided with a copy of the pathology report. After discussion with her oncologist Dr. Huntley she was given the option of lumpectomy verses simple mastectomy. She underwent a simple mastectomy on 10/05/2023 and tolerated the procedure well. Her wounds remained clean and intact. A MEGAN was left in place and produced minimal bloody discharge and was subsequently removed on 10/08/2023. She was evaluated by PT and felt to benefit from short term rehab. [facility] later today. She will need to follow up in the office in 2 weeks for a wound check. She will also follow up with Dr. Huntley from medical oncology. Time spent discussing smoking cessation with patient: 3 to 10 minutes Status at Discharge Functional status at discharge: uses cane/walker Overall status at discharge: patient is not back to baseline Time Attestation Total time managing care of this patient today: 30 mintues. Discharge Coordination Time (in mins): 30 minutes Quality: Safe Use of Opioids Does Pt have an Active Cancer Diagnosis on the Problem List?: Yes Opioid Measure Date for [facility] Report: 09/08/23 Opioid Measure Time for [facility] Report: 11:50 Quality: Stroke Does the patient have a stroke diagnosis?: No Physical Exam Vital Signs: Vital Signs: Last Vital Signs Temp 97.0 F 10/08/23 07:32 Pulse 82 10/08/23 07:32 Resp 20 10/08/23 07:32 BP 154/84 H 10/08/23 07:32 Pulse Ox 98 10/08/23 07:32 O2 Del Method Room Air 10/08/23 07:32 O2 Flow Rate 2 10/05/23 16:00 BMI result Body Mass Index 22.6 Const: General: comfortable, no acute distress and alert Orientation/consciousness: patient oriented x3 Chest: Other: left mastectomy incision clean, no erythema MEGAN drain with serosanguineous drainage, scant Dressings changed, MEGAN removed. Resp: Effort & Inspection: normal respiratory effort Skin: General skin exam: no rashes or lesions noted Neuro: General: patient oriented x3 DS: Data Data Completed and Pending Pending studies at discharge: Pending at discharge 10/05/23 11:43 Surgical [PTH] Routine Discharge Plan Discharge Anticipated Discharge Date/Time: 10/08/23 11:42 Patient Disposition: Xfer SNF Discharge Diagnosis: DCIS left breast, s/p left simple mastectomy Referrals: [facility] [Outside] - 1 Week Maggi Swift MD [Primary Care Provider] - 1 Week Horace Gaspar MD [Physician] - 1 Week Discharge Medications: Continued oxycodone 5 mg Tablet 5 mg PO Q8H PRN (Reason: Pain) acetaminophen 500 mg Tablet 1,000 mg PO TID PRN (Reason: Pain) albuterol sulfate 90 mcg/actuation HFA aerosol inhaler 2 puff INHALATION Q4H PRN (Reason: Shortness Of Breath Or Wheezing) multivitamin Tablet 1 tab PO QAM cholecalciferol (vitamin D3) [Vitamin D3] 50 mcg (2,000 unit) Capsule 50 mcg PO DAILY omeprazole 20 mg capsule,delayed release(DR/EC) 20 mg PO DAILY letrozole 2.5 mg tablet 2.5 mg PO DAILY palbociclib 125 mg capsule PO .[id number] Patient Comments: 21 days on 7 days off-10/04/23 begins 7 days off docusate sodium [Colace] 100 mg capsule 100 mg PO DAILY PRN (Reason: Constipation) Eliquis 5 mg tablet 5 mg PO BID fentanyl 12 mcg/hr patch 72 hour 1 patch topical Q3D PRN (Reason: Pain) Myrbetriq 50 mg tablet extended release 24 hr 50 mg PO DAILY Discharge Orders: Discharge Order (Routine); Ordered 10/08/23 Ordered By: Horace Gaspar Diet: Advance to usual diet Activity on Discharge: No heavy lifting Stand Alone Forms: Patient Portal Discharge page Print Language: Croatian Activity Restrictions/Additional Instructions: If the incision area is tender, you may apply an ice pack for short intervals (No more than 20 minutes on, followed by at least 20 minutes off). Do not apply heat. Do not use creams, lotions, or topical antibiotics. These can cause infection or allergic reaction. Ok to shower. You have steri-strips on your incision and these will fall off in ~1 week. Change dressing daily and drain dressing every other day. NO HEAVY LIFTING (>10lbs) with your left arm. MEGAN drain care- empty drain BID and as needed. Record output (amount and color). Bring record to follow up appointment. Follow up in office with Dr. Gaspar in 1 week. ([phone]) Call Your Doctor If: ? ? -Your temperature exceeds 101.5? F? ? ? -You experience excessive pain or swelling ? ? -You have an unexpected reaction to medication ? ? -You have excessive bleeding ? ? -You experience continued vomiting/nausea ? ? -Your incision begins to separate ?? ? -Your incision shows signs of infection such as increased redness, swelling, excessive pain, drainage (light blood or clear fluid is normal) or heat Care Plan Goals: Return to baseline health and resume normal activities following recovery period. Health Concerns: DCIS left breast hx of breast CA Plan of Treatment: s/p left simple mastectomy Home with VNA and PT services f/u in office in 1 week Assessment: Doing well post operatively.
[2023-10-08 12:03] VITALS: BP 148/89; PULSE 88; RESP 20; TEMP 36.1; O2SAT 97
== END 2023-10-08 13:59 | disposition skilled nursing facility (03) | DRG 583 ==
LOC: HO.SSSA 10:09 → HO.IMC 17:45
PROVIDERS: Nurse Practitioner; Admitting Provider Surgery; PCP Internal Medicine; Visit Provider Surgery
PROC: 0HTU0ZZ Resection of Left Breast, Open Approach (ICD-10-PCS; CPT 19303; principal; 2023-10-05 11:00)
DX: D05.12 Intraductal carcinoma in situ of left breast (principal); G89.18 Other acute postprocedural pain; Z20.822 Contact with and (suspected) exposure to COVID-19; Z90.11 Acquired absence of right breast and nipple; Z79.01 Long term (current) use of anticoagulants; Z79.899 Other long term (current) drug therapy
CPT/HCPCS: 19303; 0241U; 36415; 80048; 85027; 86850; 86900; 86901; 88307; 88360; 97116; 97162; J0131; J0665; J1100; J1170; J2250; J2371; J2405; J2704; J2795; J3010; J3370; J7120

== ENCOUNTER → 2023-10-05 10:04 | Outpatient (BNV) | payer MEDICARE, OTHER, SELFPAY | PROVIDERS: Admitting Provider Surgery; PCP Internal Medicine; Visit Provider Surgery | DX: D05.12 Intraductal carcinoma in situ of left breast (principal) | CPT/HCPCS: 19303; 99024 ==

== ENCOUNTER 2023-10-30 13:00 | Outpatient (AMB) | payer MEDICARE, OTHER, SELFPAY ==
--- NOTE | 2023-10-30 13:06 | MHC.OFFVIS ---
Vital Signs 10/30/23 13:18 Height 5 ft 7 in Weight 142 lb BMI 22.2 BP 136/73 Blood Pressure Location Lt brachial Position Sitting Pulse 91 Intake Visit Reasons: Left simple mastectomy Intake Note: Patient is seen in office for post op assessment post left simple mastectomy. Pt c/o: denies any concerns healing as expected Health Education Specialist Required: No Accompanied by: Self / Same As Patient Allergies moxifloxacin [From AVELOX] Allergy (Severe, Verified 10/30/23 13:07) HIVES,RASH Quinolones [QUINOLONES] Allergy (Severe, Verified 10/30/23 13:07) RASH adhesive tape Allergy (Intermediate, Verified 10/30/23 13:07) Itching, redness cefpodoxime [From Vantin] Allergy (Intermediate, Verified 10/30/23 13:07) Itching pneumococcal vaccine [PNEUMOCOCCAL VACCINE] Allergy (Intermediate, Verified 10/30/23 13:07) TEMP, SWELLING dust, cats,strong perfumes Allergy (Intermediate, Uncoded 10/30/23 13:07) scratchy throat, nasal stuffiness environmental Allergy (Intermediate, Uncoded 10/30/23 13:07) Nasal congestion seasonal allergies Allergy (Intermediate, Uncoded 10/30/23 13:07) Nasal congestion Medication List - Last Reconciled 10/30/23 by Horace Gaspar MD acetaminophen 1,000 mg PO TID PRN albuterol sulfate 90 mcg/actuation 2 puffs inhalation Q4H PRN apixaban (Eliquis) 5 mg PO BID cholecalciferol (vitamin D3) (Vitamin D3) 50 mcg PO DAILY docusate sodium (Colace) 100 mg PO DAILY PRN fentanyl 12 mcg/hr 1 patch topical Q3D PRN letrozole 2.5 mg PO DAILY mirabegron ER (Myrbetriq) 50 mg PO DAILY multivitamin 1 tab PO QAM omeprazole 20 mg PO DAILY oxycodone 5 mg PO Q8H PRN palbociclib PO [id number] HPI Comments Details: 78-year-old female patient with metastatic breast cancer to the spine and recurrent DCIS of the left breast status post left simple mastectomy. She returns now following surgery on 10/05/2023 for postoperative check. In general she feels well and is currently back home. She denies any significant pain redness or swelling in the incision. [facility] Medical History Constipation GERD (gastroesophageal reflux disease) Recent urinary tract infection OAB (overactive bladder) Anxiety Recent upper respiratory tract infection PND (post-nasal drip) Dental crowns present Lumbar compression fracture Thoracic compression fracture Scoliosis Environmental allergies Seasonal allergies History of cancer chemotherapy History of radiation therapy Atrial fibrillation Left breast mass History of bilateral breast cancer Surgical History H/O left mastectomy (10/05/23) History of lumpectomy of left breast (06/08/15) H/O colonoscopy History of nasal surgery History of tonsillectomy H/O right mastectomy (2005) Family History Father Lymphoma Maternal Aunt Pancreatic cancer Social History Household Members: None Housing: House Are you a primary customer care assistant to a significant other at home: No Do you presently have visiting nurse or other home services: No Patient Tobacco Use Status: Former Tobacco user Quit Date: Tobacco use type: Cigarette service: No Physical Exam Vital Signs: Last Vital Signs Pulse 91 10/30/23 13:18 BP 136/73 10/30/23 13:18 BMI result Body Mass Index 22.2 Chest Other: Left chest wound is clean, dry, and intact without redness or discharge. No hematoma or seroma is evident. Steri-Strips remain in-situ. Skin Other: Warm, dry, no rash Extrem Other: No edema Assessment & Plan Assessment & Plan (1) Ductal carcinoma in situ (DCIS) of left breast: Code(s): D05.12 - Intraductal carcinoma in situ of left breast Category: Medical Plan 78-year-old female patient with history of metastatic invasive ductal carcinoma and prior history of triple negative breast cancer now with a new ductal carcinoma in-situ of the left breast. She underwent a left simple mastectomy on 10/05/2023 and tolerated the procedure quite well. Wounds are clean, dry, and intact without evidence of hematoma or seroma. She will follow-up in 3 months but is welcome to call sooner for any new concerns. Coding Level of Care Code Global (09038) Diagnoses Ductal carcinoma in situ (DCIS) of left breast D05.12
[2023-10-30 13:18] VITALS: BP 136/73; PULSE 91; BMI 22.2
== END 2023-10-30 13:49 | disposition home or self-care (01) ==
PROVIDERS: PCP Internal Medicine; Visit Provider Surgery
DX: D05.12 Intraductal carcinoma in situ of left breast (principal)
CPT/HCPCS: 99024

== ENCOUNTER → 2023-10-30 13:00 | Outpatient (BNVA) | payer MEDICARE, OTHER, SELFPAY | PROVIDERS: PCP Internal Medicine; Visit Provider Surgery | DX: Z48.3 Aftercare following surgery for neoplasm (principal); D05.12 Intraductal carcinoma in situ of left breast; Z90.12 Acquired absence of left breast and nipple | CPT/HCPCS: 99212 ==

== ENCOUNTER 2024-01-26 11:55 | Outpatient (AMB) | payer MEDICARE, OTHER, SELFPAY ==
[2024-01-26 11:56] VITALS: BP 146/93; PULSE 138; BMI 22.5
--- NOTE | 2024-01-26 11:56 | MHC.OFFVIS ---
Vital Signs 01/26/24 11:56 Height 5 ft 7 in Weight 143 lb 8 oz BMI 22.5 BP 146/93 H Blood Pressure Location Lt brachial Position Sitting Pulse 138 H Intake Visit Reasons: 3 month follow-up s/p mastectomy Intake Note: This patient presents for a three month follow-up status post mastectomy. Pt c/o; reports had x2 UTI and they were treated with abx. 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 Required: No Accompanied by: Self / Same As Patient Allergies moxifloxacin [From AVELOX] Allergy (Severe, Verified 01/26/24 11:57) HIVES,RASH Quinolones [QUINOLONES] Allergy (Severe, Verified 01/26/24 11:57) RASH adhesive tape Allergy (Intermediate, Verified 01/26/24 11:57) Itching, redness cefpodoxime [From Vantin] Allergy (Intermediate, Verified 01/26/24 11:57) Itching pneumococcal vaccine [PNEUMOCOCCAL VACCINE] Allergy (Intermediate, Verified 01/26/24 11:57) TEMP, SWELLING dust, cats,strong perfumes Allergy (Intermediate, Uncoded 01/26/24 11:57) scratchy throat, nasal stuffiness environmental Allergy (Intermediate, Uncoded 01/26/24 11:57) Nasal congestion seasonal allergies Allergy (Intermediate, Uncoded 01/26/24 11:57) Nasal congestion Medication List - Last Reconciled 01/26/24 by Horace Gaspar MD acetaminophen 1,000 mg PO TID PRN albuterol sulfate 90 mcg/actuation 2 puffs inhalation Q4H PRN apixaban (Eliquis) 5 mg PO BID cholecalciferol (vitamin D3) (Vitamin D3) 50 mcg PO DAILY docusate sodium (Colace) 100 mg PO DAILY PRN fentanyl 12 mcg/hr 1 patch topical Q3D PRN letrozole 2.5 mg PO DAILY mirabegron ER (Myrbetriq) 50 mg PO DAILY multivitamin 1 tab PO QAM omeprazole 20 mg PO DAILY oxycodone 5 mg PO Q8H PRN palbociclib PO .[id number] HPI Comments Details: 78-year-old female patient with metastatic breast cancer to the spine and recurrent DCIS of the left breast status post left simple mastectomy. She returns now following surgery on 10/05/2023 for postoperative check. She is complaining of back pain as well as pain in the lower left ribcage and feels she may have metastasis in this location. She continues to follow with Dr. Huntley from [facility]. She is on Ibrance p.o.. She denies any changes in her mastectomy incision either side and denies any swelling under the skin. FORMERLY [facility], [facility]1983 Medical History Constipation GERD (gastroesophageal reflux disease) Recent urinary tract infection OAB (overactive bladder) Anxiety Recent upper respiratory tract infection PND (post-nasal drip) Dental crowns present Lumbar compression fracture Thoracic compression fracture Scoliosis Environmental allergies Seasonal allergies History of cancer chemotherapy History of radiation therapy Atrial fibrillation Left breast mass History of bilateral breast cancer Surgical History H/O left mastectomy (10/05/23) History of lumpectomy of left breast (06/08/15) H/O colonoscopy History of nasal surgery History of tonsillectomy H/O right mastectomy (2005) Family History Father Lymphoma Maternal Aunt Pancreatic cancer Social History Household Members: None Housing: House Are you a primary progressive care manager to a significant other at home: No Do you presently have visiting nurse or other home services: No Patient Tobacco Use Status: Former Tobacco user Tobacco use type: Cigarette service: No Review of Systems Const All systems reviewed & are unremarkable except as noted in HPI and below Denies chills, Denies fever(s), Reports weakness, Denies weight gain and Denies weight loss Resp Denies no additional complaints GI Denies abdominal pain and Reports bloating Denies nipple discharge Musc Reports back pain, Reports myalgias and Reports loss of height Skin/Breast Details: Right mastectomy Denies breast swelling, Reports breast pain, Denies breast mass, Denies change in breast shape and Denies nipple discharge Neuro Reports weakness Dominick/Lymph Denies lymphadenopathy Physical Exam Vital Signs: Last Vital Signs Pulse 138 H 01/26/24 11:56 BP 146/93 H 01/26/24 11:56 BMI result Body Mass Index 22.5 Const General: alert Nutritional Appearance: well nourished Orientation/consciousness: patient oriented x3 Chest Other: Left chest wound is clean, dry, and intact without redness or discharge. No hematoma or seroma is evident. Steri-Strips remain in-situ. No palpable nodules noted below the skin. No enlarged lymph nodes. Resp Effort & Inspection: normal respiratory effort, no audible wheezes, no cough and no respiratory distress Skin Other: Warm, dry, no rash Neuro General: patient oriented x3 Extrem Other: No edema Assessment & Plan Assessment & Plan (1) Ductal carcinoma in situ (DCIS) of left breast: Code(s): D05.12 - Intraductal carcinoma in situ of left breast Category: Medical Plan 78-year-old female patient with history of metastatic invasive ductal carcinoma and prior history of triple negative breast cancer now with a new ductal carcinoma in-situ of the left breast. She underwent a left simple mastectomy on 10/05/2023 and tolerated the procedure quite well. Wounds are clean, dry, and intact without evidence of hematoma or seroma. She will follow-up in 6 months but is welcome to call sooner for any new concerns. She no longer requires mammograms. Coding Level of Care Code Est Pt Level 3 (16726) Diagnoses Ductal carcinoma in situ (DCIS) of left breast D05.12
--- OUTSIDE RECORDS SUMMARY | 2024-01-26 11:57 | XMS_ITS | Continuity of Care Document ---
Author Organization [facility] Address [address] [place] [id number]- Care Team Providers Care Cyberathlete Name Role Phone Jamison MAYA, Maggi Rose Primary Care Physician Encounter [facility] Date(s): 10/20/23 - 10/27/23 [facility] [address] [place] [id number] Encounter Diagnosis Afib(Discharge Diagnosis) - 10/20/23 Attending Physician: Taylor Drew MD Allergies, Adverse Reactions, Alerts Substance Reaction [...] Clini jered Service Informant Afib Discharge Diagnosis 10/20/23 Vital Signs Most recent to oldest [Reference Range]: 1 Height 173 cm (10/20/23 1:50 PM) Weight 62.7 kg (10/20/23 1:50 PM) Body Mass Index [18.5-24.99 kg/m2] 20.95 kg/m2 (10/20/23 1:50 PM) Blood Pressure [90-138/55-84 mm Hg] 133/ 71mm Hg (10/20/23 1:50 PM) Respiratory Rate [16-30 br/min] 16 br/mi n (10/20/23 1:50 PM) Mode of Delivery (Oxygen) Room air (10/20/23 1:50 PM) Blood pressure sites Arm, left (10/20/23 1:50 PM) Weight Obtained Via Bed scale (10/20/23 1:50 PM) Social History Social History Type Response Smoking Status Former smoker, quit more than 30 days ago entered on: 04/02/23 Sex Cardiology Outpatient Note * Viki MAYA, Taylor Tripathi: PERFORM Event Display: Cardiology Note Office Authored Date: Patient: ??RUFINO LOPES ? Age:??78 Years?Sex:??Female?:??1945?? History of Present Illness/Interval History Ms.?? Chuck is a 78 y/o female with history of breast cancer and PAF who presents to clinic for follow-up of afib.?She recently had??a mastectomy.?Denies chest pain or shortness of breath.?? She is recovering from surgery.?? Review of Systems Pertinent positives as per the HPI.? All other systems were reviewed and were negative Physical Exam Vitals & Measurements RR:??16?? BP:??133/71?? HT:??173??cm?? WT:??62.7??kg?? BMI:??20.95?? Weight lb/oz: 138 lb 4 oz General:??In no acute distress HEENT:??Sclerae anicteric, mucous membranes moist Cardiovascular: ??Regular rhythm, normal first and second heart sounds.?? No murmurs or gallops.?No JVP Extremities: Warm,??noedema Neuro:??Nonfocal Psych: Alert and oriented with appropriate affect. Assessment/Plan 1.??Afib ?-CHADSVASC score of 3; continue Eliquis.?? We discussed risks versus benefits. -She did see EP and Metoprolol stopped previously.?? -denies symptoms. -echo done??previously showed mild to moderate MS. Given mild to moderate, will continue Eliqiuis for now. Repeat echo in a few months.? 2. Return to??clinic: Patient will return to clinic in 6 months.?? Patient and her [id number] voiced understanding and agreement to above plan [...] 2.5 mg= 1 tablet, By Mouth, Daily metoprolol succinate 25 mg oral capsule, extended release, 25 mg= 1 capsule, By Mouth, Daily Myrbetriq 50 mg oral [...] 410 ms QTC Calculation(Bazett): 487 ms P Friendship: 58 degrees R Friendship: -34 degrees T Friendship: 98 degrees Normal sinus rhythm Left axis deviation Inferior infarct (cited on or before 02-APR-2023) Anteroseptal infarct (cited on or before 02-APR-2023) Abnormal ECG When compared with ECG of 24-NOV-2022 12:32, No significant change was found Confirmed by SALVATORE GALVAN ([id number]) on 04/02/2023 5:51:09 PM ?? [place]: SALVATORE GALVAN ?? Signed By: Julianna MAYA, Salvatore Ruth Problem List/Past Medical History Ongoing No qualifying data Procedure/Surgical History No qualifying data available. Social History Tobacco Use: Former smoker, quit more than 30 days ago. Family History No family history recorded. Note * Hanny Suero: PERFORM, SIGN, VERIFY Event Display: Patient Education/Instruction Authored Date: [id number] [facility] *[facility] Clinical Summary Name RUFINO LOPES Age 78 Years 1945 PCP Jamison MAYA, Maggi Rose PCP Visit Date 10/20/2023 13:34:00 Additional Instructions: Scheduled Appointments?? Future Appointments ?No Future Appointments Scheduled Follow-Up Instructions ?? Diagnosis Unspecified atrial fibrillation Medications: Please continue your medications until treatment is completed or stopped by your provider. Discuss any questions related to medications with your provider. Medications to Continue with No Changes These medications were not printed or sent to your pharmacy Acetaminophen (Tylenol Caplet) 500 Milligram Oral every 8 hours. Next Dose: Amoxicillin (amoxicillin 500 mg oral capsule) 1 capsule Oral 3 times a day. Next Dose: apixaban (Eliquis 5 mg oral tablet) 1 tab(s) Oral twice a day. Next Dose: Aspirin (aspirin 81 mg oral delayed release tablet) 1 tab(s) Oral Daily. Next Dose: Calcium Citrate (Calcium Citrate Tablet) Next Dose: Cholecalciferol (Vitamin D3 2000 intl units oral tablet) 1 tab(s) Oral Daily. Next Dose: Docusate (Colace Clear) 50 Milligram Oral twice a day as needed as needed for constipation. Next Dose: Fentanyl (fentanyl 12 mcg/hr transdermal film, extended release) 1 patch(es) Topically every 72 hours as needed Pain , Moderate. Next Dose: Fluticasone Nasal (Flonase 50 mcg/inh nasal spray) Daily as needed Congestion. Next Dose: Fluticasone Nasal (Flonase) 1 spray(s) Daily. Next Dose: Letrozole (letrozole 2.5 mg oral tablet) 1 tab(s) Oral Daily. Next Dose: Metoprolol (metoprolol succinate 25 mg oral capsule, extended release) 1 capsule Oral Daily. Next Dose: mirabegron (Myrbetriq 50 mg oral tablet, extended release) 1 tab(s) Oral Daily. do not crush or chew. Next Dose: Multivitamin With Minerals (Centrum Adults) 1 tab(s) Oral Daily. Next Dose: Omeprazole (omeprazole 20 mg oral delayed release tablet) 1 tab(s) Oral Daily. Next Dose: Ondansetron (Zofran ODT 4 mg oral tablet, disintegrating) 1 tab(s) Oral every 8 hours as needed as needed for nausea/vomiting. Next Dose: Oxycodone (OxyContin) Oral every 12 hours as needed Pain , Moderate. Next Dose: palbociclib (Ibrance 125 mg oral capsule) 1 capsule Oral Daily. Next Dose: Zoledronic Acid (Zometa IVPB) 4 Milligram Intravenous Infusion. Next Dose: Allergy Info:?? Topical Skin Adhesive; pneumococcal vaccines; Seasonale; Avelox; moxifloxacin; Vantin Medications Given This Visit Future Orders ?Echo Complete? Order Date:10/20/23?- Complete by?10/20/23 Future Orders ?Echo Complete? Order Date:10/20/23?- Complete by?10/20/23 Vital Signs Height 173 cm Weight 62.7 kg BMI 20.95 kg/m2 Blood Pressure 133 mm Hg/71 mm Hg Temperature Pulse Rate Respiratory Rate 16 br/min 02 Sat Mode of Delivery /Room air You can now view a summary of your hospital visit from the comfort of your home through a free online portal called [employer]. [employer] is a website that allows you to securely view your medical information including discharge summary, medications and follow-up visits. ??You can alsosend a secure electronic message to your doctor???s office to request appointments, renew medications or just ask a question. You can enroll at [email or web address] or register during your next office visit. Disclaimer:?? The information provided is of a general nature and is intended to be used in conjunction with the recommendations and advice of your health care practitioner. ??Every effort has been made to ensure that the information provided is accurate and complete at the time it is provided to you however, as your needs change, or, as new ??information becomes available, different or additional instructions may be required. If you have questions, please consult with your primary care provider or pharmacist, as appropriate. ??This information is not intended to serve as substitution for assessment and evaluation by a qualified health care provider. If you do not have a primary care provider, you may find a [facility] provider by calling [facility] [employer] at [phone]. [facility], in keeping with [facility] guidance, no longer requires face masks for staff, patientsor visitors in most situations. Similar to time spent indoors at other locations, there is the chance that you were exposed to respiratory viruses during your time with us (such as flu or COVID-19).? If you develop symptoms concerning for a viral respiratory infection, please seek testing (and treatment if indicated) from your medical provider or home test kit. For information about the plan of care including goals and instructions for your diagnosis, please see the patient education orders section of this document. Patient Education Materials?? The content of this educational material or handout may have been modified, supplemented, or adapted from its original content and format to support your individualized medical care. Patient Care team information Care Team Personnel Name: Maggi Swift MD Position: [facility] Outreach Member Role: PCP Address: Address: [address] [place] [address]- Name: Cari Stevens NP Position: [facility] Outreach Member Role: Lifetime Consulting Physician Address: Address: [address] [place] [address]- Care Team Related Persons Name: SADA LOPES Name: JUAN FRANCISCO LOPES Name: LAILA LOPES Address: [address] [place] [address]
== END 2024-01-26 12:17 | disposition home or self-care (01) ==
LOC: HO.HGS 11:55
PROVIDERS: PCP Internal Medicine; Visit Provider Surgery
DX: D05.12 Intraductal carcinoma in situ of left breast (principal)
CPT/HCPCS: 99213

== ENCOUNTER → 2024-01-26 11:55 | Outpatient (BNVA) | payer MEDICARE, OTHER, SELFPAY | PROVIDERS: PCP Internal Medicine; Visit Provider Surgery | DX: D05.12 Intraductal carcinoma in situ of left breast (principal); Z90.12 Acquired absence of left breast and nipple | CPT/HCPCS: 99212 ==

== ENCOUNTER 2024-07-28 11:49 | Outpatient (AMB) | payer MEDICARE, OTHER, SELFPAY ==
--- NOTE | 2024-07-28 11:50 | MHC.OFFVIS ---
Vital Signs 07/28/24 12:35 Height 5 ft 7 in Weight 143 lb 4.807 oz BMI 22.4 BP 130/82 Blood Pressure Location Lt brachial Position Sitting Intake Visit Reasons: 6 month follow-up breast exam Intake Note: Patient is seen in office for 6 month follow up visit, breast exam. Pt c/o: no concerns regardin the breast was in [facility] on 02/09/24 due to heart failure mm: not require Comb Winder Required: No Equipment Mechanic Specialist: Equipment Mechanic Specialist Present Accompanied by: Self / Same As Patient Allergies moxifloxacin [From AVELOX] Allergy (Severe, Verified 01/26/24 11:57) HIVES,RASH Quinolones [QUINOLONES] Allergy (Severe, Verified 01/26/24 11:57) RASH adhesive tape Allergy (Intermediate, Verified 01/26/24 11:57) Itching, redness cefpodoxime [From Vantin] Allergy (Intermediate, Verified 01/26/24 11:57) Itching pneumococcal vaccine [PNEUMOCOCCAL VACCINE] Allergy (Intermediate, Verified 01/26/24 11:57) TEMP, SWELLING dust, cats,strong perfumes Allergy (Intermediate, Uncoded 01/26/24 11:57) scratchy throat, nasal stuffiness environmental Allergy (Intermediate, Uncoded 01/26/24 11:57) Nasal congestion seasonal allergies Allergy (Intermediate, Uncoded 01/26/24 11:57) Nasal congestion HPI Comments Details: Daniela Woods is a 78-year-old female returning today to review results of her recent stereotactic guided core biopsy performed at [facility]. 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 She initially developed a right breast cancer treated by Dr. Armendariz and subsequently developed a recurrence right breast cancer requiring a right modified radical mastectomy in 2005. She later developed a left breast carcinoma treated by Dr. San with a left breast lumpectomy and left axillary sentinel node biopsy on 06/08/2015.? Pathology revealed a 1 cm grade 1 infiltrating ductal carcinoma ER CO negative, HER2 Tejas negative.? Margins were clear however the inferior margin was close initially and re-excision performed with widely clear margin.? The 1 sentinel node was benign.? She subsequently underwent TC chemotherapy at [facility] under the direction of Dr. Huntley and radiation therapy also at [facility] with Dr. Walker, completed in December 2015. She was diagnosed with metastatic breast cancer with spread to her spine felt to be related to her right breast carcinoma which was a mixed ductal and lobular carcinoma, ER CO positive, 9.5 cm in greatest diameter with 2 of 14 right axillary lymph nodes positive for metastasis.? The HER2 Tejas was equivocal by IHC and not over expressed by FISH.? She reported back pain which was initially thought to be due to arthritis but after a bone scan, metastatic disease was noted in the ribs, skull, and back.? 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 A biopsy of metastatic lesion at L4 revealed estrogen positive tumor, positive for over expression of her 2 Tejas.? She received radiation therapy to her back and subsequently received Taxol, Herceptin, and Perjeta.? She is also receiving Zometa for her bones (Dr. Huntley).? She denies any ongoing breast symptoms but does report left hip pain. Bone scan of 07/29/2021 reveals multifocal osseous disease consistent with chronic metastatic disease. Screening mammogram of 07/22/2023 with follow-up diagnostic images of the left breast of 09/01/2023 revealed a cluster of calcifications in the left breast spanning approximately 3.3 cm. She subsequently underwent stereotactic guided core biopsy at [facility] and the pathology revealed DCIS, ER/CO negative. She is status post left simple mastectomy performed on 10/05/2023. She was recently diagnosed with just of heart failure with reduced ejection fraction. This was felt to be due to Adriamycin received in 2005. [facility] Medical History Constipation GERD (gastroesophageal reflux disease) Recent urinary tract infection OAB (overactive bladder) Anxiety Recent upper respiratory tract infection PND (post-nasal drip) Dental crowns present Lumbar compression fracture Thoracic compression fracture Scoliosis Environmental allergies Seasonal allergies History of cancer chemotherapy History of radiation therapy Atrial fibrillation Left breast mass History of bilateral breast cancer Surgical History H/O left mastectomy (10/05/23) History of lumpectomy of left breast (06/08/15) H/O colonoscopy History of nasal surgery History of tonsillectomy H/O right mastectomy (2005) Family History Father Lymphoma Maternal Aunt Pancreatic cancer Social History Household Members: None Housing: House Are you a primary home child care provider to a significant other at home: No Do you presently have visiting nurse or other home services: No Patient Tobacco Use Status: Former Tobacco user Tobacco use type: Cigarette service: No Review of Systems Const All systems reviewed & are unremarkable except as noted in HPI and below Denies chills, Denies fever(s), Reports weakness, Denies weight gain and Denies weight loss Resp Denies no additional complaints GI Denies abdominal pain and Reports bloating Denies nipple discharge Musc Reports back pain, Reports myalgias and Reports loss of height Skin/Breast Details: Right mastectomy Denies breast swelling, Reports breast pain, Denies breast mass, Denies change in breast shape and Denies nipple discharge Neuro Reports weakness Dominick/Lymph Denies lymphadenopathy Physical Exam Vital Signs: Last Vital Signs BP 130/82 07/28/24 12:35 BMI result Body Mass Index 22.4 Const General: alert Nutritional Appearance: well nourished Orientation/consciousness: patient oriented x3 Chest Other: Bilateral mastectomy incisions are clean and intact. No palpable subcutaneous nodules are identified. No skin lesions are appreciated. No enlarged lymph nodes on either side. Resp Effort & Inspection: normal respiratory effort, no audible wheezes, no cough and no respiratory distress Skin Other: Warm, dry, no rash Neuro General: patient oriented x3 Extrem Other: 1+ edema bilateral extremities Assessment & Plan Assessment & Plan (1) Ductal carcinoma in situ (DCIS) of left breast: Code(s): D05.12 - Intraductal carcinoma in situ of left breast Category: Medical Plan 78-year-old female patient with history of metastatic invasive ductal carcinoma and prior history of triple negative breast cancer now with a new ductal carcinoma in-situ of the left breast. She underwent a left simple mastectomy on 10/05/2023 and tolerated the procedure quite well. Wounds are clean, dry, and intact without evidence of hematoma or seroma. She will follow-up in 6 months but is welcome to call sooner for any new concerns. She no longer requires mammograms. Coding Level of Care Code Est Pt Level 3 (57754) Complex EM visit Add On G2211 Diagnoses Ductal carcinoma in situ (DCIS) of left breast D05.12
[2024-07-28 12:35] VITALS: BP 130/82; BMI 22.4
--- OUTSIDE RECORDS SUMMARY | 2024-07-28 14:19 | XMS_ITS ---
Author Organization [facility] Address [address] [place] [address] Care Team Providers Care Yard Demurrage Clerk Name Role Phone Maggi Swift MD Primary Care Provider [phone] Active Problems Problem Noted Date Diagnosed Date Malignant neoplasm metastatic to bone 02/24/2019 Overview: Inactive diagnosis replaced for October 2022 IMO Load Malignant neoplasm of upper- inner quadrant of left breast in female, estrogen receptor negative 07/30/2018 Malignant neoplasm of overla pping sites of right breast in female, estrogen receptor positive 07/30/2018 Current Oncology Plans No current plan information found. Past Plans ONCOLOGY INFUSION THERAPY Plan Name Start Date Discontinue Date Treatment Medications Discontinue Reason Plan [facility]ZOMETA[facility] 04/14/2022 08/13/2023 Saline Flush 0.9 %sodium chloride (NS) 0.9 %zoledronic acid (ZOMETA) Therapy Complete Cricket Huntley MD Radiation Treatments * No radiation treatments are documented for this patient in [facility]. Treatments may have been administered in another system.
--- OUTSIDE RECORDS SUMMARY | 2024-07-28 14:19 | XMS_ITS | Encounter Summary ---
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) Procedures CT Chest/Abdomen/Pelvis w Contrast CT Chest/Abdomen/Pelvis wo Contrast CT Abdomen Pelvis wo Contrast Cricket Huntley MD [address] [place] [address] [facility] [address] [place] [address] Referral ID Status Reason Start Date Expiration Date Visits Re quested Visits Authorized [id number] Closed 05/30/2024 05/30/2025 1 1 Encounter Details Date Type Department Care Team (Latest Contact Info) Description 07/14/2024 9:19 AM EST - 07/14/2024 11:59 PM EST Hospital Encounter [facility] CT Scan [address] [place] [address] Malignant neoplasm metastatic to bone (CMS/HCC); Malignant neoplasm of upper-inner quadrant of left breast in female, 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) Discharge Disposition: Home or Self Care Social History Tobacco Use Types Packs/Day Years Used Date Smoking Tobacco: Never Assessed Alcohol Use Standard Drinks/Week Comments Yes 0 (1 standard drink = 0.6 oz pur e alcohol) Sex and Gender Information Value Date Recorded Sex Assigned at Female 06/01/2024 8:19 AM EST Gender Identity Female 06/01/2024 8:19 AM EST Sexual Orientation Straight 06/01/2024 8: 19 AM EST Job Start Date Occupation Industry Not on file Not on file Not on file documented as of this encounter Medications at Time of Discharge Medication Sig Dispensed Refills Start Date End Date acetaminophen (TYLENOL) 500 mg tablet 2 tablets (1,000 mg total) every 8 (eight) hours. albuterol HFA (PROAIR HFA ; PROVENTIL HFA ; VENTOLIN HFA) 90 mcg/actuation inhaler Inhale 2 puffs by mouth every 6 hours as needed. calcium phosphate trib/vit D3 (CALCIUM PHOSPHATE-VITAMIN D3 ORAL) Take by mouth. carvediloL (COREG) 3.125 mg tablet Take 1 tablet (3.125 mg total) by mouth 2 (two) times a day with meals. cholecalciferol (VITAMIN D-3) 50 mcg (2,000 unit) capsule Take 2,000 Units by mouth daily. Every other day docusate sodium (COLACE) 100 mg capsule Take 1 capsule (100 mg total) by mouth if needed. fluticasone propionate (FLONASE) 50 mcg/actuation nasal spray spray/apply 1 spray in each nostril daily. Ibrance 125 mg capsule TAKE 1 CAPSULE BY MOUTH DAILY FOR 21 DAYS, THEN 7 DAYS OFF 21 capsule 11 06/10/2024 letrozole (FEMARA) 2.5 mg tablet Take 1 tablet (2.5 mg total) by mouth 1 (one) time each day 03/23/2024 multivitamin (MULTIPLE VITAMINS ORAL) Take by mouth daily. omeprazole (PriLOSEC) [address] capsule Take 1 capsule (20 mg total) by mouth 1 (one) time each day. ondansetron (ZOFRAN) 8 mg tablet Take 1 tablet (8 mg total) by mouth if needed. 11/09/2023 sacubitriL-valsartan (Entresto) 24-26 mg per tablet Take 1 tablet by mouth 2 (two) times a day. UNABLE TO FIND Cranberry-Vitamin C-D Mannose 250-30-50 MG CHEW Chew by mouth. - Oral apixaban (ELIQUIS) 5 mg tablet Take 2.5 mg by mouth every 12 (twelve) hours. 07/20/2024 calcium carbonate (TUMS) 500 mg (200 mg elemental calcium) chewable tablet Chew 1 tablet (500 mg total) by mouth daily. 07/20/2024 cephalexin (KEFLEX) 500 mg capsule Take 1 capsule (500 mg total) by mouth 2 (two) times a day. 07/20/2024 fentaNYL (DURAGESIC) 12 mcg/hr Place 1 patch on the skin every 72 hours. 12/25/2021 07/20/2024 metoprolol succinate 25 mg capsule,sprinkle,ER 24hr Take by mouth. 07/20/2024 mirabegron (Myrbetriq) 50 mg tablet extended release 24 hr 24 hr tablet Take 1 tablet (50 mg total) by mouth 1 (one) time each day. 07/20/2024 UNABLE TO FIND Benadryl soln 12.5mg/5 [id number]-[id number]-[id number] susp mouth wash 1:1:1 Swish and spit 15 mL every 4 (four) hours as needed. 02/20/2022 07/20/2024 documented as of this encounter Discharge Disposition Disposition Code Departure Means Destination Home or Self Care documented in this encounter Plan of Treatment Upcoming Encounters Date Type Department Care Team (Late st Contact Info) Description 08/29/2024 11:15 AM EST Office Visit [facility] Hematology Oncology [address] [place] [id number] Cricket Huntley MD [address] [place] [id number] documented as of this encounter Procedures Procedure Name Priority Date/Time Associated Diagnosis Comments CT CHEST/ABDOMEN/PELVI S W CONTRAST Routine 07/14/2024 11:02 AM EST Malignant neoplasm metastatic to bone (CMS/HCC) Malignant neoplasm of upper-inner quadrant of left breast in female, 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 Multi planar reformats were created and interpreted. The examination was performed utilizing dose reduction techniques. ??Total DLP 715 COMPARISON: ??04/11/2024 FINDINGS: Chest: Central airways are patent. ??Right greater than left biapical pleural-parenchymal scarring, unchanged. ??Bibasilar atelectasis. ??No new or suspicious pulmonary nodules. ??No pleural effusion or pneumothorax. Thyroid gland is normal. ??No mediastinal or hilar lymphadenopathy. ?? Esophagus is normal. ??Biatrial enlargement, similar compared to prior. ?? Aortic valvular and mitral annular calcifications. ??Moderate coronary artery calcifications. ??No pericardial effusion. ??No central pulmonary arterial emboli. Bilateral mastectomy. ??No axillary adenopathy. 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 ??Multifocal bony metastatic disease is similar compared to prior. ??For example sclerotic lesion in the manubrium is stable compared to prior. ??No new pathologic fracture. Abdomen/pelvis: Segment 4 lesion is stable compared to prior measuring 10 mm as compared to 10 mm prior. ??Diffusely heterogeneous enhancement the liver. ??No new liver lesions. Gallbladder and biliary tree are within normal limits. Pancreas, spleen, and adrenal glands are normal. Kidneys are normal. Portal vein is patent. ??Abdominal aorta is normal in size. ??No retroperitoneal or mesenteric lymphadenopathy. Uterus and adnexal structures are within normal limits. ??Diffuse bladder wall thickening with perivesicular inflammatory change. ??No pelvic lymphadenopathy. Colonic diverticulosis. ??No bowel obstruction or wall thickening. ??Normal appendix. ??No ascites, fluid collection, or free intraperitoneal air. Soft tissues are within normal limits. ??Multifocal bony metastatic disease is similar compared to prior. ??Chronic pathologic fracture at T12 and L1 with retropulsion of the L1 vertebral body towards spinal canal, unchanged. ??No new pathologic fracture. IMPRESSION: Resolved pleural effusions. No new or increasing metastatic disease in the chest, abdomen, or pelvis. Diffuse bladder wall thickening with perivesicular inflammatory change. ?? Correlate for cystitis. -------- ADDENDUM -------- Dictated By: JAYA MALCOLM Dictated Date: 07/20/2024 14:28 ET Assigned Physician: JAYA MALCOLM Reviewed and Electronically Signed By: JAYA MALCOLM Signed Date: 07/20/2024 14:29 ET Workstation ID: [id number] Transcribed By: Self Edit Transcribed Date: 07/20/2024 14:28 ET Impressions 07/20/2024 11:46 AM EST Resolved pleural effusions. No new or increasing metastatic disease in the chest, abdomen, or pelvis. -------- FINAL REPORT -------- Dictated By: JAYA MALCOLM Dictated Date: 07/20/2024 11:35 ET Assigned Physician: JAYA MALCOLM Reviewed and Electronically Signed By: JAYA MALCOLM Signed Date: 07/20/2024 11:46 ET Workstation ID: [id number] Transcribed By: Self Edit Transcribed Date: 07/20/2024 11:35 ET Narrative 07/20/2024 11:46 AM EST PROCEDURE: Chest, abdomen, pelvis CT INDICATION: Restaging metastatic breast cancer; TECHNIQUE: Chest, abdomen, and pelvis CT with intravenous administration of 90cc Omnipaque 300. Multi planar reformats were created and interpreted. The examination was performed utilizing dose reduction techniques. ??Total DLP 715 COMPARISON: ??04/11/2024 FINDINGS: Chest: Central airways are patent. ??Right greater than left biapical pleural- parenchymal scarring, unchanged. ??Bibasilar atelectasis. ??No new or suspicious pulmonary nodules. ??No pleural effusion or pneumothorax. Thyroid gland is normal. ??No mediastinal or hilar lymphadenopathy. ??Esophagus is normal. ??Biatrial enlargement, similar compared to prior. ??Aortic valvular and mitral annular calcifications. ??Moderate coronary artery calcifications. ??No pericardial effusion. ??No central pulmonary arterial emboli. Bilateral mastectomy. ??No axillary adenopathy. 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 ??Multifocal bony metastatic disease is similar compared to prior. ??For example sclerotic lesion in the manubrium is stable compared to prior. ??No new pathologic fracture. Abdomen/pelvis: Segment 4 lesion is stable compared to prior measuring 10 mm as compared to 10 mm prior. ??Diffusely heterogeneous enhancement the liver. ??No new liver lesions. Gallbladder and biliary tree are within normal limits. Pancreas, spleen, and adrenal glands are normal. Kidneys are normal. Portal vein is patent. ??Abdominal aorta is normal in size. ??No retroperitoneal or mesenteric lymphadenopathy. Uterus and adnexal structures are within normal limits. ??Diffuse bladder wall thickening with perivesicular inflammatory change. ??No pelvic lymphadenopathy. Colonic diverticulosis. ??No bowel obstruction or wall thickening. ??Normal appendix. ??No ascites, fluid collection, or free intraperitoneal air. Soft tissues are within normal limits. ??Multifocal bony metastatic disease is similar compared to prior. ??Chronic pathologic fracture at T12 and L1 with retropulsion of the L1 vertebral body towards spinal canal, unchanged. ??No new pathologic fracture. Procedure Note Jaya Malcolm MD - 07/20/2024 PROCEDURE: Chest, abdomen, pelvis CT INDICATION: Restaging metastatic breast cancer; TECHNIQUE: Chest, abdomen, and pelvis CT with intravenous administrationof 90cc Omnipaque 300. Multi planar reformats were created andinterpreted. The examination was performed utilizing dose reductiontechniques. Total DLP 715 COMPARISON: 04/11/2024 FINDINGS: Chest: Central airways are patent. Right greater than left biapicalpleural-parenchymal scarring, unchanged. Bibasilar atelectasis. No newor suspicious pulmonary nodules. No pleural effusion or pneumothorax. Thyroid gland is normal. No mediastinal or hilar lymphadenopathy.Esophagus is normal. Biatrial enlargement, similar compared to prior.Aortic valvular and mitral annular calcifications. Moderate coronaryartery calcifications. No pericardial effusion. No central pulmonaryarterial emboli. Bilateral mastectomy. No axillary adenopathy. Severe left glenohumeral osteoarthritis and posttraumatic deformity,unchanged. Multifocal bony metastatic disease is similar compared toprior. For example sclerotic lesion in the manubrium is stable comparedto prior. No new pathologic fracture. Abdomen/pelvis: Segment 4 lesion is stable compared to prior measuring 10 mm as comparedto 10 mm prior. Diffusely heterogeneous enhancement the liver. No newliver lesions. Gallbladder and biliary tree are within normal limits. Pancreas, spleen, and adrenal glands are normal. Kidneys are normal. Portal vein is patent. Abdominal aorta is normal in size. Noretroperitoneal or mesenteric lymphadenopathy. Uterus and adnexal structures are within normal limits. Diffuse bladderwall thickening with perivesicular inflammatory change. No pelviclymphadenopathy. Colonic diverticulosis. No bowel obstruction or wall thickening. Normalappendix. No ascites, fluid collection, or free intraperitoneal air. Soft tissues are within normal limits. Multifocal bony metastatic diseaseis similar compared to prior. Chronic pathologic fracture at T12 and L1with retropulsion of the L1 vertebral body towards spinal canal,unchanged. No new pathologic fracture. IMPRESSION: Resolved pleural effusions. No new or increasing metastatic disease in thechest, abdomen, or pelvis. 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) documented in this encounter Administered Medications Inactive Administered Medications - up to 3 most recent administrations Medication Order MAR Action Action Date Dose Rate Site iopamidoL (ISOVUE-370) 370 mg iodine /mL (76 %) injection 90 mL 90 mL, intravenous, Once in imaging, Starting on Lucia 07/14/24 at 1031, For 1 dose Given 07/14/2024 10:31 AM EST 90 mL sodium chloride 0.9 % flush 10 mL 10 mL, intravenous, Once, On Lucia 07/14/24 at 1100, For 1 dose Given 07/14/2024 10:32 AM EST 10 mL documented in this encounter Care Teams Bra[employer]alking [employer] Clerk Relationship Specialty Start Date End Date Maggi Swift MD [address] [place] [address] PCP - General Internal Medicine 12/05/21 documented as of this encounter
--- OUTSIDE RECORDS SUMMARY | 2024-07-28 14:19 | XMS_ITS | Clinical Summary ---
Author Organization Unknown Care Team Providers Care Disk Recordist Name Role Phone STACY MAYA, PATSY Unavailable Unavailable OLIVER ALEJON, NAKUL Unavailable Unavailable INGE KHAN, MELIA Unavailable Unavailable Payers Payer Name Policy Type Policy Number Effective Date Expira tion Date MEDICARE.NGS.PDGM [id number] Problems Condition Name Condition Details Condition Category Status Onset Date Resolution Date Last Treatment Date Treating Clinician Comments HYPERTENSIVE HEART DISEASE WITH HEART FAILURE Active 2023-07 00:00: 00 CHRONIC SYSTOLIC (CONGESTIVE) HEART FAILURE Active 2023-07 00:00: 00 BIVENTRICULA R HEART FAILURE Active 2023-07 00:00: 00 PRESSURE ULCER OF LEFT BUTTOCK, STAGE 2 Active 2023-07 00:00: 00 CHRONIC PAIN SYNDROME Active 2023-07 00:00: 00 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, OTH SITE, SUBS FOR FX W ROUTN HEAL Active 07-06 00:00: 00 SECONDARY MALIGNANT NEOPLASM OF BONE Active 07-06 00:00: 00 MALIGNANT NEOPLASM OF UNSP SITE OF UNSPECIFIED FEMALE BREAST Active 07-06 00:00: 00 ANEMIA IN NEOPLASTIC DISEASE Active 07-06 00:00: 00 DRUG-INDUCED POLYNEUROPAT HY Active 07-06 00:00: 00 ADVERSE EFFECT OF ANTINEOPLAST IC AND IMMUNOSUP DRUGS, SUBS Active 07-06 00:00: 00 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 Active 07-06 00:00: 00 ACUTE RESPIRATORY FAILURE WITH HYPOXIA Active 07-06 00:00: 00 ATHSCL HEART DISEASE OF [place] CORONARY ARTERY W/O ANG PCTRS Active 07-06 00:00: 00 PAROXYSMAL ATRIAL FIBRILLATION Active 07-06 00:00: 00 PULMONARY HYPERTENSION , UNSPECIFIED Active 07-06 00:00: 00 OTHER CARDIOMYOPAT HIES Active 07-06 00:00: 00 RHEUMATIC DISORDERS OF BOTH MITRAL AND AORTIC VALVES Active 07-06 00:00: 00 GASTRO-ESOPH AGEAL REFLUX DISEASE WITHOUT ESOPHAGITIS Active 07-06 00:00: 00 AUTOIMMUNE THYROIDITIS Active 07-06 00:00: 00 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 Ordering Clinician Indication Dosage Frequency Signature (SIG) Comments Components Ibrance 125 mg capsule 01-21 00:00: 00 10-04 23:59 :00 No [id number] CANCER Per instruc tions DIRECTED Per instructio ns DIRECTED (route: oral) Med Classific ation: Antineopl astics cyclobenzap rine 10 mg tablet 01-11 00:00: 00 01-28 00:00 :00 No [id number] FOR MUSCLE SPASM Per instruc tions THREE TIMES A DAY NEEDED Per instructio ns THREE TIMES A DAY NEEDED (route: oral) Med Classific ation: Locomotor System oxycodone 5 mg tablet 01-11 00:00: 00 05-06 00:00 :00 No [id number] FOR PAIN 0.5 tablet EVERY 3 (THREE) HOURS 0.5 tablet EVERY 3 (THREE) HOURS (route: oral) Med Classific ation: Analgesic , Anti-infl ammatory or Antipyret ic letrozole 2.5 mg tablet 01-21 00:00: 00 10-04 23:59 :00 No [id number] CANCER 1 tablet DAILY 1 tablet DAILY (route: oral) Med Classific ation: Antineopl astics omeprazole 20 mg capsule,del ayed release 01-01 00:00: 00 10-04 23:59 :00 No [id number] GERD 1 capsule ONCE DAILY BEFORE A MEAL NEEDED 1 capsule ONCE DAILY BEFORE A MEAL NEEDED (route: oral) Med Classific ation: Gastroint estinal Therapy Agents cephalexin 500 mg capsule 01-16 00:00: 00 01-28 00:00 :00 No [id number] Per instruc tions Per instructio ns (route: oral) Med Classific ation: Anti-Infe ctive Agents Acetaminoph en Extra Strength 500 mg tablet 01-27 00:00: 00 05-06 00:00 :00 No [id number] PAIN 2 tablet 3 TIMES DAILY 2 tablet 3 TIMES DAILY (route: oral) Med Classific ation: Analgesic , Anti-infl ammatory or Antipyret ic calcium citrate 250 mg tablet 01-27 00:00: 00 10-04 23:59 :00 No [id number] SUPPLEMENT 1 tablet 2 TIMES DAILY 1 tablet 2 TIMES DAILY (route: oral) Med Classific ation: Electroly te Balance-N utritiona l Products cholecalcif efra (vitamin D3) 50 mcg (2,000 unit) capsule 01-27 00:00: 00 10-04 23:59 :00 No [id number] VITAMIN SUPPLEMENT 1 capsule EVERY OTHER DAY 1 capsule EVERY OTHER DAY (route: oral) Med Classific ation: Electroly te Balance-N utritiona l Products letrozole 2.5 mg tablet 01-27 00:00: 00 05-06 00:00 :00 No [id number] CANCER 1 tablet DAILY 1 tablet DAILY (route: oral) Med Classific ation: Antineopl astics Multivitami n 50 Plus tablet 01-28 00:00: 00 10-04 23:59 :00 No [id number] VITQMIN SUPPLEMEMT 1 tablet DAILY 1 tablet DAILY (route: oral) Med Classific ation: Electroly te Balance-N utritiona l Products palbociclib 125 mg capsule 01-27 00:00: 00 05-06 00:00 :00 No [id number] CANCER 1 capsule DAILY 1 capsule DAILY (route: oral) Med Classific ation: Antineopl astics Zometa 4 mg/100 mL intravenous piggyback 01-27 00:00: 00 10-04 23:59 :00 No [id number] BONE STRENGTH Per instruc tions DIRECTED Per instructio ns DIRECTED (route: intravenou s) Med Classific ation: Endocrine loratadine 10 mg tablet 03-12 00:00: 00 05-06 00:00 :00 No [id number] ALLERGIES 1 tablet DAILY 1 tablet DAILY (route: oral) Med Classific ation: Respirato ry Therapy Agents Colace 100 mg capsule 2020-07 00:00: 00 10-04 23:59 :00 No [id number] CONSTIPATIO N 1 capsule NEEDED 1 capsule NEEDED (route: oral) Med Classific ation: Gastroint estinal Therapy Agents Eliquis 5 mg tablet 2020-07 00:00: 00 05-16 23:59 :00 No [id number] BLOOD THINNER 1 tablet DAILY 1 tablet DAILY (route: oral) Med Classific ation: Hematolog ical Agents Eucerin Advanced Repair topical cream 2020-07 00:00: 00 10-04 23:59 :00 No [id number] DRY SKIN Per instruc tions NEEDED Per instructio ns NEEDED (route: topical) Med Classific ation: Dermatolo gical fentanyl 25 mcg/hr transdermal patch 2020-07 00:00: 00 05-16 23:59 :00 No [id number] PAIN 1 patch, transde rmal 72 hours DIRECTED 1 patch, transderma l 72 hours DIRECTED (route: transderma l) Med Classific ation: Analgesic , Anti-infl ammatory or Antipyret ic Tiadylt ER 120 mg capsule,ext ended release 2020-07 00:00: 00 06-06 23:59 :00 No [id number] HTN 1 capsule DAILY 1 capsule DAILY (route: oral) Med Classific ation: Cardiovas cular Therapy Agents Tylenol Extra Strength 500 mg tablet 2020-07 00:00: 00 10-04 23:59 :00 No [id number] LBP 1 tablet EVERY 8 HOURS 1 tablet EVERY 8 HOURS (route: oral) Med Classific ation: Analgesic , Anti-infl ammatory or Antipyret ic Zofran 4 mg tablet 2020-07 00:00: 00 10-04 23:59 :00 No [id number] NAUSEA 1 tablet NEEDED 1 tablet NEEDED (route: oral) Med Classific ation: Gastroint estinal Therapy Agents Eliquis 5 mg tablet 2020-07 00:00: 00 10-04 23:59 :00 No [id number] BLOOD THINNER 1 tablet 2 TIMES DAILY 1 tablet 2 TIMES DAILY (route: oral) Med Classific ation: Hematolog ical Agents fentanyl 12 mcg/hr transdermal patch 2020-07 00:00: 00 10-04 23:59 :00 No [id number] PAIN 1 patch, transde rmal 72 hours EVERY 72 HOURS 1 patch, transderma l 72 hours EVERY 72 HOURS (route: transderma l) Med Classific ation: Analgesic , Anti-infl ammatory or Antipyret ic metoprolol succinate ER 25 mg tablet,exte nded release 24 hr 2020-07 00:00: 00 10-04 23:59 :00 No [id number] BLOOD PRESSURE 1 tablet DAILY 1 tablet DAILY (route: oral) Med Classific ation: Cardiovas cular Therapy Agents Ibrance 125 mg capsule 09-30 00:00: 00 02-20 23:59 :00 No [id number] CANCER Per instruc tions DAILY FOR 21 DAYS THEN 7 DAYS Per instructio ns DAILY FOR 21 DAYS THEN 7 DAYS (route: oral) Med Classific ation: Antineopl astics letrozole 2.5 mg tablet 09-27 00:00: 00 02-20 23:59 :00 No [id number] CANCER Per instruc tions EVERY DAY Per instructio ns EVERY DAY (route: oral) Med Classific ation: Antineopl astics Myrbetriq 50 mg tablet,exte nded release 3-20 00:00: 00 02-20 23:59 :00 No [id number] OVERACTIVE BLADDER Per instruc tions EVERY DAY Per instructio ns EVERY DAY (route: oral) Med Classific ation: Genitouri nary Therapy Eliquis 5 mg tablet 18 00:00: 00 02-20 23:59 :00 No [id number] PREVENT CLOTS Per instruc tions TWICE A DAY Per instructio ns TWICE A DAY (route: oral) Med Classific ation: Hematolog ical Agents acetaminoph en 500 mg tablet 10-17 00:00: 00 02-20 23:59 :00 No [id number] PAIN 2 tablet 3 TIMES DAILY 2 tablet 3 TIMES DAILY (route: oral) Med Classific ation: Analgesic , Anti-infl ammatory or Antipyret ic Flonase Allergy Relief 50 mcg/actuati on nasal spray,suspe nsion 10-17 00:00: 00 02-20 23:59 :00 No [id number] ALERGIES 1 spray DAILY 1 spray DAILY (route: nasal) Med Classific ation: Respirato ry Therapy Agents omeprazole 20 mg capsule,del ayed release 10-17 00:00: 00 02-20 23:59 :00 No [id number] GERD 1 capsule DAILY 1 capsule DAILY (route: oral) Med Classific ation: Gastroint estinal Therapy Agents Ventolin HFA 90 mcg/actuati on aerosol inhaler 10-17 00:00: 00 02-20 23:59 :00 No [id number] SOB 2 puff 4 TIMES DAILY 2 puff 4 TIMES DAILY (route: inhalation ) Med Classific ation: Respirato ry Therapy Agents Vitamin D3 50 mcg (2,000 unit) tablet 10-17 00:00: 00 02-20 23:59 :00 No [id number] SUPPLEMENT 1 tablet DAILY 1 tablet DAILY (route: oral) Med Classific ation: Electroly te Balance-N utritiona l Products Ibrance 125 mg capsule 02-18 00:00: 00 Yes [id number] BREAST CA Per instruc tions DIRECTED Per instructio ns DIRECTED (route: oral) Med Classific ation: Antineopl astics omeprazole 20 mg capsule,del ayed release 02-11 00:00: 00 Yes [id number] GERD 1 capsule ONCE DAILY BEFORE A MEAL NEEDED 1 capsule ONCE DAILY BEFORE A MEAL NEEDED (route: oral) Med Classific ation: Gastroint estinal Therapy Agents sulfamethox azole 800 mg-trimetho prim 160 mg tablet 02-03 00:00: 00 02-21 23:59 :00 No [id number] UTI Per instruc tions EVERY 12 HOURS FOR 7 DAYS Per instructio ns EVERY 12 HOURS FOR 7 DAYS (route: oral) Med Classific ation: Anti-Infe ctive Agents acetaminoph en 500 mg capsule 02-24 00:00: 00 Yes [id number] PAIN 2 capsule 3 TIMES DAILY 2 capsule 3 TIMES DAILY (route: oral) Med Classific ation: Analgesic , Anti-infl ammatory or Antipyret ic aspirin 81 mg tablet,jerri yed release 02-24 00:00: 00 05-09 00:00 :00 No [id number] HEART HEALTH 1 tablet DAILY 1 tablet DAILY (route: oral) Med Classific ation: Hematolog ical Agents carvedilol 3.125 mg tablet 02-24 00:00: 00 05-10 12:59 :45.0 07 No [id number] ARRYTHMIA 1 tablet 2 TIMES DAILY 1 tablet 2 TIMES DAILY (route: oral) Med Classific ation: Cardiovas cular Therapy Agents Colace 100 mg capsule 02-24 00:00: 00 Yes [id number] STOOL SOFTNRR 1 capsule 2 TIMES DAILY 1 capsule 2 TIMES DAILY (route: oral) Med Classific ation: Gastroint estinal Therapy Agents Eliquis 2.5 mg tablet 02-24 00:00: 00 Yes [id number] BLOOD THINNER 1 tablet 2 TIMES DAILY 1 tablet 2 TIMES DAILY (route: oral) Med Classific ation: Hematolog ical Agents Entresto 24 mg-26 mg tablet 02-24 00:00: 00 Yes [id number] CHF 1 tablet 2 TIMES DAILY 1 tablet 2 TIMES DAILY (route: oral) Med Classific ation: Cardiovas cular Therapy Agents furosemide 20 mg tablet 02-24 00:00: 00 05-09 00:00 :00 No [id number] CHF 1 tablet DAILY 1 tablet DAILY (route: oral) Med Classific ation: Cardiovas cular Therapy Agents letrozole 2.5 mg tablet 02-24 00:00: 00 Yes [id number] BREAST CA 1 tablet DAILY 1 tablet DAILY (route: oral) Med Classific ation: Antineopl astics multivitami n tablet 02-24 00:00: 00 Yes [id number] SUPPLEMENT 1 tablet DAILY 1 tablet DAILY (route: oral) Med Classific ation: Electroly te Balance-N utritiona l Products Vitamin D3 50 mcg (2,000 unit) capsule 02-24 00:00: 00 Yes [id number] SUPPLEMENT 1 capsule DAILY 1 capsule DAILY (route: oral) Med Classific ation: Electroly te Balance-N utritiona l Products Flonase Allergy Relief 50 mcg/actuati on nasal spray,suspe nsion 2023-07 00:00: 00 Yes [id number] ALLERGIES 2 spray DAILY 2 spray DAILY (route: nasal) Med Classific ation: Respirato ry Therapy Agents ondansetron 4 mg disintegrat ing tablet 2023-07 00:00: 00 Yes [id number] NAUSEA 1 tablet EVERY 8 HOURS 1 tablet EVERY 8 HOURS (route: oral) Med Classific ation: Gastroint estinal Therapy Agents spironolact one 25 mg tablet 2023-07 00:00: 00 Yes [id number] EDEMA .5 tablet DAILY .5 tablet DAILY (route: oral) Med Classific ation: Cardiovas cular Therapy Agents torsemide 20 mg tablet 2023-07 00:00: 00 Yes [id number] HF 1 tablet DAILY 1 tablet DAILY (route: oral) Med Classific ation: Cardiovas cular Therapy Agents carvedilol 12.5 mg tablet 2023-07 00:00: 00 05-10 13:10 :52.6 8 No [id number] blood pressure 1 tablet 2 TIMES DAILY 1 tablet 2 TIMES DAILY (route: oral) Med Classific ation: Cardiovas cular Therapy Agents Farxiga 10 mg tablet 2023-07 00:00: 00 05-10 13:10 :42.1 1 No [id number] dm 1 tablet DAILY 1 tablet DAILY (route: oral) Med Classific ation: Endocrine Ibrance 125 mg capsule 2023-07 00:00: 00 Yes [id number] breast ca 1 capsule DAILY 1 capsule DAILY (route: oral) Med Classific ation: Antineopl astics carvedilol 3.125 mg tablet 2023-07 00:00: 00 Yes [id number] blood pressure 1 tablet 2 TIMES DAILY 1 tablet 2 TIMES DAILY (route: oral) Med Classific ation: Cardiovas cular Therapy Agents DICLOFENAC ORAL 01-27 00:00: 00 03-04 00:00 :00 No 75 mg1 TABLET TWICE A DAY AFTER MEALS NEEDED 75 mg1 TABLET TWICE A DAY AFTER MEALS NEEDED (route: ) Alternate Route: BY MOUTH. Med Classific ation: ANALGESIC , ANTI-INFL AMMATORY OR ANTIPYRET IC DIAZEPAM ORAL 01-27 00:00: 00 03-04 00:00 :00 No 5 mg1 TABLET 3 TIMES A DAY NEEDED 5 mg1 TABLET 3 TIMES A DAY NEEDED (route: ) Alternate Route: BY MOUTH. Med Classific ation: CENTRAL NERVOUS SYSTEM AGENTS CARISOPRODO L ORAL 01-21 00:00: 00 01-28 00:00 :00 No 350 mg 350 mg (route: ) Med Classific ation: LOCOMOTOR SYSTEM CARISOPRODO L ORAL 12-04 00:00: 00 12-09 00:00 :00 No 350 mg 350 mg (route: ) Med Classific ation: LOCOMOTOR SYSTEM CARISOPRODO L ORAL 01-21 00:00: 00 01-28 00:00 :00 No 350 mg 350 mg (route: ) Med Classific ation: LOCOMOTOR SYSTEM CARISOPRODO L ORAL 12-04 00:00: 00 12-09 00:00 :00 No 350 mg 350 mg (route: ) Med Classific ation: LOCOMOTOR SYSTEM Vital Signs Vital Name Observation Time Observation Value Commen ts Temperature 2024-07-27 11:20:00.000 96.9 [degF] Temperature 2024-07-20 10:29:00.000 98.1 [degF] Temperature 2024-07-13 10:37:00.000 98.1 [degF] Pulse 2024-07-27 11:20:00.000 70 /min Pulse 2024-07-20 10:29:00.000 70 /min Pulse 2024-07-13 10:37:00.000 99 /min O2 Saturation (%) 2024-07-27 11:20:00.000 98 % O2 Saturation (%) 2024-07-20 10:29:00.000 97 % O2 Saturation (%) 2024-07-13 10:37:00.000 98 % Respirations 2024-07-27 11:20:00.000 16 /min Respirations 2024-07-20 10:29:00.000 16 /min Respirations 2024-07-13 10:37:00.000 18 /min Weight (lbs) 2024-07-27 11:20:00.000 125.9 [lb_av] Weight (lbs) 2024-07-20 10:38:00.000 127.9 [lb_av] Weight (lbs) 2024-07-13 10:44:00.000 126 [lb_av] Systolic Blood Pressure 2024-07-27 11:20:00.000 98 mm[ Hg] Systolic Blood Pressure 2024-07-20 10:29:00.000 98 mm[ Hg] Systolic Blood Pressure 2024-07-13 10:37:00.000 90 mm[ Hg] Diastolic Blood Pressure 2024-07-27 11:20:00.000 72 mm [Hg] Diastolic Blood Pressure 2024-07-20 10:29:00.000 62 mm [Hg] Diastolic Blood Pressure 2024-07-13 10:37:00.000 54 mm [Hg] Plan of Treatment Planned Activity Planned Date Details Comments Future Scheduled Test MEDICATION MANAGEMENT; RN/TROMPER/DISK GRINDER TO REVIEW MEDICATIONS FOR INTERACTIONS, EFFECTIVENESS OF DRUG THERAPY, AND SIGNS/SYMPTOMS OF ADVERSE REACTIONS. MAY INSTRUCT AND REINFORCE MEDICATION TEACHING RELATED TO THE USE OF MEDICATIONS, DOSAGE, FREQUENCY, PURPOSE, SIDE EFFECTS, AND TO REPORT COMPLICATIONS. [code = MEDICATION MANAGEMENT; RN/TROMPER/DISK GRINDER TO REVIEW MEDICATIONS FOR INTERACTIONS, EFFECTIVENESS OF DRUG THERAPY, AND SIGNS/SYMPTOMS OF ADVERSE REACTIONS. MAY INSTRUCT AND REINFORCE MEDICATION TEACHING RELATED TO THE USE OF MEDICATIONS, DOSAGE, FREQUENCY, PURPOSE, SIDE EFFECTS, AND TO REPORT COMPLICATIONS.] Future Scheduled Test FALL REDUC TION MANAGEMENT; RN TO ASSESS AND OBSERVE, TROMPER/DISK GRINDER TO OBSERVE FALL RISK FACTORS AND EDUCATE PATIENT/CAREGIVER ON STRATEGIES TO MINIMIZE THE RISK OF FALLING. [code = FALL REDUCTION MANAGEMENT; RN TO ASSESS AND OBSERVE, TROMPER/DISK GRINDER TO OBSERVE FALL RISK FACTORS AND EDUCATE PATIENT/CAREGIVER ON STRATEGIES TO MINIMIZE THE RISK OF FALLING.] Future Scheduled Test RN TO OBSE RVE, ASSESS, EVALUATE, AND DEVELOP AN INDIVIDUALIZED PLAN OF CARE. AGENCY MAY ACCEPT ORDERS FROM CONSULTING PHYSICIANS. RN TO OBSERVE AND ASSESS, TROMPER/DISK GRINDER TO OBSERVE FOR RISK FOR FALLS AND INSTRUCT IN FALL PREVENTION, HOME SAFETY, MEDICATION MANAGEMENT, INFECTION PREVENTION, AND NUTRITION MANAGEMENT. RN/TROMPER/DISK GRINDER NURSE MAY PERFORM O2 SATURATION LEVEL ON ADMISSION AND PRN FOR RN TO ASSESS/TROMPER TO OBSERVE PATIENT, WITH NOTIFICATION TO THE PHYSICIAN IF SATURATION IS 90% IN THE ABSENCE OF MORE SPECIFIC PARAMETERS FROM THE PHYSICIAN. AGENCY MAY PERFORM A RESUMPTION OF CARE VISIT FOLLOWING ANY HOSPITAL ADMISSION. RN/TROMPER/DISK GRINDER TO MONITOR CO-MORBID CONDITIONS LISTED ON THE PLAN OF CARE AND ANY NEW CONDITIONS THAT PRESENT THEMSELVES DURING THIS EPISODE TO IDENTIFY CHANGES AND INTERVENE TO MINIMIZE COMPLICATIONS. [code = RN TO OBSERVE, ASSESS, EVALUATE, AND DEVELOP AN INDIVIDUALIZED PLAN OF CARE. AGENCY MAY ACCEPT ORDERS FROM CONSULTING PHYSICIANS. RN TO OBSERVE AND ASSESS, TROMPER/DISK GRINDER TO OBSERVE FOR RISK FOR FALLS AND INSTRUCT IN FALL PREVENTION, HOME SAFETY, MEDICATION MANAGEMENT, INFECTION PREVENTION, AND NUTRITION MANAGEMENT. RN/TROMPER/DISK GRINDER NURSE MAY PERFORM O2 SATURATION LEVEL ON ADMISSION AND PRN FOR RN TO ASSESS/TROMPER TO OBSERVE PATIENT, WITH NOTIFICATION TO THE PHYSICIAN IF SATURATION IS 90% IN THE ABSENCE OF MORE SPECIFIC PARAMETERS FROM THE PHYSICIAN. AGENCY MAY PERFORM A RESUMPTION OF CARE VISIT FOLLOWING ANY HOSPITAL ADMISSION. RN/TROMPER/DISK GRINDER TO MONITOR CO-MORBID CONDITIONS LISTED ON THE PLAN OF CARE AND ANY NEW CONDITIONS THAT PRESENT THEMSELVES DURING THIS EPISODE TO IDENTIFY CHANGES AND INTERVENE TO MINIMIZE COMPLICATIONS.] Future Scheduled Test PAIN MANAG EMENT; RN TO ASSESS AND TEACH, DISK GRINDER/TROMPER TO OBSERVE AND TEACH AND PROVIDE EDUCATION ON PAIN MANAGEMENT TECHNIQUES. [code = PAIN MANAGEMENT; RN TO ASSESS AND TEACH, DISK GRINDER/TROMPER TO OBSERVE AND TEACH AND PROVIDE EDUCATION ON PAIN MANAGEMENT TECHNIQUES.] Future Scheduled Test RN/TROMPER/DISK GRINDER TO PERFORM/TEACH PATIENT/CAREGIVER WOUND CARE PRESSURE INJURY TO L BUTTOCK: APPLY BARRIER CREAM DAILY. [code = RN/TROMPER/DISK GRINDER TO PERFORM/TEACH PATIENT/CAREGIVER WOUND CARE PRESSURE INJURY TO L BUTTOCK: APPLY BARRIER CREAM DAILY.] Future Scheduled Test RISK FOR H OSPITALIZATION; RN TO ASSESS/TEACH, DISK GRINDER/TROMPER TO OBSERVE/TEACH PATIENT/CAREGIVER ON RISK FOR HOSPITALIZATION/EMERGENCY ROOM VISITS, TEACH SIGNS AND SYMPTOMS THAT PUT PATIENT AT RISK, WHEN TO NOTIFY NURSE/PHYSICIAN OF COMPLICATIONS/DECLINE, AND WHEN TO CALL 911. [code = RISK FOR HOSPITALIZATION; RN TO ASSESS/TEACH, DISK GRINDER/TROMPER TO OBSERVE/TEACH PATIENT/CAREGIVER ON RISK FOR HOSPITALIZATION/EMERGENCY ROOM VISITS, TEACH SIGNS AND SYMPTOMS THAT PUT PATIENT AT RISK, WHEN TO NOTIFY NURSE/PHYSICIAN OF COMPLICATIONS/DECLINE, AND WHEN TO CALL 911.] Future Scheduled Test CARDIOVASC ULAR SYSTEM; RN TO ASSESS/TEACH, TROMPER/DISK GRINDER TO OBSERVE/TEACH RELATED TO ALTERED CARDIOVASCULAR STATUS TO MINIMIZE COMPLICATIONS AND REDUCE HOSPITALIZATION. [code = CARDIOVASCULAR SYSTEM; RN TO ASSESS/TEACH, TROMPER/DISK GRINDER TO OBSERVE/TEACH RELATED TO ALTERED CARDIOVASCULAR STATUS TO MINIMIZE COMPLICATIONS AND REDUCE HOSPITALIZATION.] Future Scheduled Test HEART FAIL URE; RN TO ASSESS/TEACH, TROMPER/DISK GRINDER TO OBSERVE/TEACH CARDIOPULMONARY SYSTEM TO IDENTIFY SIGNS OF DECOMPENSATION AND INTERVENE TO MINIMIZE THE SEVERITY OF FLUID OVERLOAD. OBSERVE PATIENT ABILITY TO MONITOR AND RECORD DAILY WEIGHTS AND VITAL SIGNS, INCLUDING PULSE AND BLOOD PRESSURE; RECORD PATIENT REPORTED WEIGHT, OR WEIGH PATIENT NEEDED. REPORT INCREASED EDEMA OR WEIGHT GAIN OF >2 LBS IN 1 DAY OR >5 LBS IN 1 WEEK OR 5LBS OR MORE OVER TARGET WEIGHT. MAY MEASURE ABDOMINAL GIRTH IF UNABLE TO WEIGH. SCALES AND BP MONITOR TO BE PROVIDED IF NEEDED. [code = HEART FAILURE; RN TO ASSESS/TEACH, TROMPER/DISK GRINDER TO OBSERVE/TEACH CARDIOPULMONARY SYSTEM TO IDENTIFY SIGNS OF DECOMPENSATION AND INTERVENE TO MINIMIZE THE SEVERITY OF FLUID OVERLOAD. OBSERVE PATIENT ABILITY TO MONITOR AND RECORD DAILY WEIGHTS AND VITAL SIGNS, INCLUDING PULSE AND BLOOD PRESSURE; RECORD PATIENT REPORTED WEIGHT, OR WEIGH PATIENT NEEDED. REPORT INCREASED EDEMA OR WEIGHT GAIN OF >2 LBS IN 1 DAY OR >5 LBS IN 1 WEEK OR 5LBS OR MORE OVER TARGET WEIGHT. MAY MEASURE ABDOMINAL GIRTH IF UNABLE TO WEIGH. SCALES AND BP MONITOR TO BE PROVIDED IF NEEDED.] Goal 2024-07-05 Patient Goal - T O KEEP FLUID FREE, KEEP BP LEVEL, Goal Patient Goal - T O KEEP FLUID FREE, KEEP BP LEVEL, Goal Provider Goal - PATIENT/CAREGIVER TO VERBALIZE, AND CONSISTENTLY DEMONSTRATE EFFECTIVE, SAFE MANAGEMENT OF MEDICATION INCLUDING KNOWLEDGE OF EFFECTIVENESS, POTENTIAL SIDE EFFECTS AND DRUG REACTIONS AND WHEN TO CONTACT THE APPROPRIATE CARE PROVIDER. PATIENT/CAREGIVER WILL BE ABLE TO VERBALIZE UNDERSTANDING OF MEDICATION REGIMEN AND ACCURATELY TAKE MEDICATIONS PRESCRIBED WITHOUT ADVERSE EFFECTS BY EOE Goal Provider Goal - PATIENT/CAREGIVER WILL VERBALIZE/DEMONSTRATE UNDERSTANDING OF FALL RISK FACTORS AND IMPLEMENT STRATEGIES TO MINIMIZE FALL RISK. PATIENT/CAREGIVER WILL VERBALIZE/DEMONSTRATE AN ABILITY TO ADHERE TO FALL REDUCTION SELF-MANAGEMENT AND LIFE-STYLE CHANGES BY EOE Goal Provider Goal - A PLAN OF CARE WILL BE ESTABLISHED THAT MEETS THE PATIENTS NEEDS. PATIENT WILL DEMONSTRATE OXYGEN SATURATION WITHIN NORMAL LIMITS OR PATIENTS OPTIMAL LEVEL ESTABLISHED BY THE PHYSICIAN THROUGHOUT CARE. CHANGES TO CO-MORBID CONDITIONS AND ANY NEW CONDITIONS WILL BE IDENTIFIED AND REPORTED TO THE PHYSICIAN. Goal Provider Goal - PATIENT / CAREGIVER WILL VERBALIZE / DEMONSTRATE UNDERSTANDING OF PAIN CONTROL MEASURES BY EOE Goal Provider Goal - PATIENT / CAREGIVER WILL VERBALIZE / DEMONSTRATE ABILITY TO PERFORM WOUND CARE. WOUND STATUS WILL IMPROVE EVIDENCED BY A DECREASE IN SIZE, DRAINAGE, ABSENCE OF INFECTION, AND DECREASED PAIN BY END OF EPISODE. Goal Provider Goal - PATIENT/CAREGIVER WILL VERBALIZE UNDERSTANDING OF SIGNS AND SYMPTOMS THAT PUT THE PATIENT AT RISK FOR HOSPITALIZATION /EMERGENCY ROOM VISITS, WHEN TO NOTIFY NURSE/PHYSICIAN OF COMPLICATIONS/DECLINE AND WHEN TO CALL 911. Goal Provider Goal - PATIENT / CAREGIVER WILL VERBALIZE/DEMONSTRATE UNDERSTANDING OF MEASURES TO MANAGE ALTERED CARDIOVASCULAR STATUS BY EOE Goal Provider Goal - PATIENT / CAREGIVER WILL VERBALIZE/DEMONSTRATE AN ABILITY TO ADHERE TO SELF-MANAGEMENT OF HF TO MINIMIZE COMPLICATIONS AND AVOID HOSPITALIZATION BY END OF EPISODE. Encounters Start Date/Time End Date/Time Encounter Type Admission Type Attending [facility] Care Facility Care Department Encounter ID Discharge Date Discharge Status Discharge Condition Discharge Reason Percent Goals Met 2024-05-09 00:00:00 2024-09-05 00:00:00 Outpatient [facility] [id number]
--- OUTSIDE RECORDS SUMMARY | 2024-07-28 14:19 | XMS_ITS | Clinical Summary ---
Author Organization [facility] Address [address] [place] [address] Care Team Providers Care Mutuel Clerk Name Role Phone Maggi Swift MD Primary Care Provider [phone] Allergies Active Allergy Reactions Criticality Noted Date Comments Chlorpheniramine 07/29/2018 Moxifloxacin 07/29/2018 Lidocaine 03/08/2019 Patch Medications Medication Sig Dispensed Refills Start Date End Date Status omeprazole (PriLOSEC) 20 MG capsule Take 1 capsule (20 mg total) by mouth daily. 0 Active Cholecalciferol (Vitamin D) 50 MCG (2000 UT) CAPS Take 2,000 Units by mouth daily. Every other day 0 Active Multiple Vitamins-Minerals (MULTIVITAMIN PO) Take by mouth daily. 0 Active calcium carbonate (TUMS) 500 MG chewable tablet Chew 1 tablet (500 mg total) by mouth daily. 0 Active docusate sodium (COLACE) 100 MG capsule Take 1 capsule (100 mg total) by mouth 2 (two) times a day. 0 Active acetaminophen (TYLENOL EXTRA STRENGTH) 500 MG tablet Take 1 tablet (500 mg total) by mouth. 0 Active apixaban (ELIQUIS) 5 MG TABS tablet Take 2.5 mg by mouth every 12 (twelve) hours. 0 Active Metoprolol Succinate 25 MG CS24 Take by mouth. 0 Active fluticasone (FLONASE) 50 MCG/ACT nasal spray spray/apply 1 spray in each nostril daily. 0 Active Mirabegron ER (Myrbetriq) 50 MG TB24 Take 1 tablet (50 mg total) by mouth daily. 0 Active fentaNYL (DURAGESIC) 12 MCG/HR Place 1 patch onto the skin every third day. 10 patch 0 12/25/2021 Active Benadryl soln 12.5mg/5 eK-Syiuso-Pqylalyw susp mouth wash 1:1:1 Swish and spit 15 mL every 4 (four) hours as needed. 120 mL 1 02/20/2022 Active cephalexin (KEFLEX) 500 MG capsule Take 1 capsule (500 mg total) by mouth 2 (two) times a day. 0 Active Ibrance 125 MG capsule TAKE 1 CAPSULE BY MOUTH DAILY FOR 21 DAYS, THEN 7 DAYS OFF 21 capsule 11 07/07/2023 Active albuterol 108 (90 Base) MCG/ACT inhaler Inhale 2 puffs into the lungs every 6 (six) hours as needed for wheezing. 0 Active Piwrxoi-Tptnrjkglq-E itamin D (CALCIUM GUMMIES PO) Take by mouth. 0 Active ondansetron (ZOFRAN) 8 MG tablet Take 1 tablet (8 mg total) by mouth every 8 (eight) hours as needed for nausea. 30 tablet 2 11/09/2023 Active sacubitril-valsartan (Entresto) 24-26 MG per tablet Take 1 tablet by mouth 2 (two) times a day. 0 Active carvedilol (COREG) 3.125 MG tablet Take 1 tablet (3.125 mg total) by mouth 2 (two) times a day with meals. 0 Active aspirin 81 MG chewable tablet Chew 1 tablet (81 mg total) by mouth daily. 0 Active letrozole (FEMARA) 2.5 MG tablet TAKE 1 TABLET BY MOUTH EVERY DAY 90 tablet 3 03/23/2024 Active Cranberry-Vitamin C-D Mannose 250-30-50 MG CHEW Chew by mouth. 0 Act justino Active Problems Problem Noted Date Diagnosed Date Malignant neoplasm metastatic to bone 02/24/2019 Overview: Inactive diagnosis replaced for October 2022 IMO Load Malignant neoplasm of upper- inner quadrant of left breast in female, estrogen receptor negative 07/30/2018 Malignant neoplasm of overla pping sites of right breast in female, estrogen receptor positive 07/30/2018 Social History Tobacco Use Types Packs/Day Years Used Date Smoking Tobacco: Never Assessed Sex and Gender Information Value Date Recorded Sex Assigned at Not on file Gender Identity Not on file Sexual Orientation Not on file Job Start Date Occupation Industry Not on file Not on file Not on file Last Filed Vital Signs Vital Sign Reading Time Taken Comments Blood Pressure 134/87 04/20/2024 11:39 AM EDT Pulse 110 04/20/2024 11:39 AM EDT Temperature 36.2 ??C (97.2 ??F) 04/20/2024 11:39 AM E DT Respiratory Rate 18 09/29/2022 12:00 PM EDT Oxygen Saturation 96% 04/20/2024 11:39 AM EDT Inhaled Oxygen Concentration - - Weight 64 kg (141 lb) 04/20/2024 11:39 AM EDT Height 170.2 cm (5' 7 ) 04/20/2024 11:39 AM EDT Body Mass Index 22.08 04/20/2024 11:39 AM EDT Plan of Treatment Health Maintenance Due Date Last Done Comments Pneumococcal Vaccine (1 of 2 - PCV) 01/28/1951 Depression Screening 1957 Preventative Health Evaluation 01/28/1962 DTap / Tdap / Td (1 - Tdap) 01/28/1963 Shingrix-Zoster Vaccine (1 o f 2) 01/28/1963 Fall Risk Assessment 01/28/2009 Osteoporosis Screening (DEXA Scan) 01/28/2009 RSV Adult > 60+ Yrs or (1 - 1-dose 75+ series) 01/28/2019 COVID-19 Vaccine (3 - Pfizer risk series) 12/12/2021 11/14/2021, 05/26/2021 Influenza Vaccine (#1) 2024 Hepatitis B Vaccines Aged Out No long er eligible based on patient's age to complete this topic RSV Ped < 20 months Aged Out No longe r eligible based on patient's age to complete this topic Care Teams Mutuel Clerk Relationship Specialty Start Date End Date Maggi Swift MD [address] [place] [address] PCP - General Internal Medicine 02/24/22
--- OUTSIDE RECORDS SUMMARY | 2024-07-28 14:19 | XMS_ITS | Encounter Summary ---
Author Organization [facility] Address [address] [place] [address] Care Team Providers Care Business Systems Lead Name Role Phone Maggi Swift MD Primary Care Provider [phone] Encounter Details Date Type Department Care Team (Late st Contact Info) Description 06/21/2024 Telephone [facility] Hematology Oncology [address] [place] [address] Cricket Huntley MD [address] [place] [address] Social History Tobacco Use Types [...] on file documented as of this encounter Progress Notes * Geovanna Alonzo - 06/21/2024 2:22 PM EST [employer] Supervisor Taylor Drew would like to speak with you regarding mutual patient. She can be reached at [phone] documented in this encounter Plan of Treatment Upcoming Encounters Date Type Department Care Team (Late st Contact Info) Description 08/29/2024 11:15 AM EST Office Visit [facility] Hematology Oncology [address] [place] [address] Cricket Huntley MD [address] [place] [phone] documented as of this encounter Visit Diagnoses Not on filedocumented in this encounter Care Teams Business Systems Lead Relationship Specialty Start Date End Date Maggi Swift MD [address] [facility] [address] [place] [id number] PCP - General Internal Medicine 12/05/21 documented as of this encounter
--- OUTSIDE RECORDS SUMMARY | 2024-07-28 14:19 | XMS_ITS | Clinical Summary ---
Author Organization [facility] [place] [address] Phone Care Team Providers Care Sword Swallower Name Role Phone Maggi Swift MD Primary Care Provider Allergies Active Allergy Reactions Criticality Noted Date Comments Chlorpheniramine 07/29/2018 Lidocaine 03/08/2019 Patch Moxifloxacin 07/29/2018 Medications Medication Sig Dispensed Refills Start Date End Date Status acetaminophen (TYLENOL) 500 mg tablet 2 tablets (1,000 mg total) every 8 (eight) hours. Active albuterol HFA (PROAIR HFA ; PROVENTIL HFA ; VENTOLIN HFA) 90 mcg/actuation inhaler Inhale 2 puffs by mouth every 6 hours as needed. Active calcium phosphate trib/vit D3 (CALCIUM PHOSPHATE-VITAMI N D3 ORAL) Take by mouth. Active carvediloL (COREG) 3.125 mg tablet Take 1 tablet (3.125 mg total) by mouth 2 (two) times a day with meals. Active cholecalciferol (VITAMIN D-3) 50 mcg (2,000 unit) capsule Take 2,000 Units by mouth daily. Every other day Active docusate sodium (COLACE) 100 mg capsule Take 1 capsule (100 mg total) by mouth if needed. Active fluticasone propionate (FLONASE) 50 mcg/actuation nasal spray spray/apply 1 spray in each nostril daily. Active letrozole (FEMARA) 2.5 mg tablet Take 1 tablet (2.5 mg total) by mouth 1 (one) time each day 03/23/2024 Active omeprazole (PriLOSEC) [address] capsule Take 1 capsule (20 mg total) by mouth 1 (one) time each day. Active ondansetron (ZOFRAN) 8 mg tablet Take 1 tablet (8 mg total) by mouth if needed. 11/09/2023 Active sacubitriL-valsa rtan (Entresto) 24-26 mg per tablet Take 1 tablet by mouth 2 (two) times a day. Active multivitamin (MULTIPLE VITAMINS ORAL) Take by mouth daily. Active UNABLE TO FIND Cranberry-[place] min C-D Mannose 250-30-50 MG CHEW Chew by mouth. - Oral Active Ibrance 125 mg capsule TAKE 1 CAPSULE BY MOUTH DAILY FOR 21 DAYS, THEN 7 DAYS OFF 21 capsule 11 06/10/2024 Active apixaban (ELIQUIS) 2.5 mg tablet Take 1 tablet (2.5 mg total) by mouth 2 (two) times a day. Active spironolactone (ALDACTONE) 25 mg tablet Take 0.5 tablets (12.5 mg total) by mouth 1 (one) time each day. Active torsemide (DEMADEX) 20 mg tablet Take 1 tablet (20 mg total) by mouth 1 (one) time each day. Active apixaban (ELIQUIS) 5 mg tablet Take 2.5 mg by mouth every 12 (twelve) hours. 07/20/2024 Discontinued UNABLE TO FIND Benadryl soln 12.5mg/5 qI-Parvja-Aiwo atin susp mouth wash 1:1:1 Swish and spit 15 mL every 4 (four) hours as needed. 02/20/2022 07/20/2024 Discontinued calcium carbonate (TUMS) 500 mg (200 mg elemental calcium) chewable tablet Chew 1 tablet (500 mg total) by mouth daily. 07/20/2024 Discontinued cephalexin (KEFLEX) 500 mg capsule Take 1 capsule (500 mg total) by mouth 2 (two) times a day. 07/20/2024 Discontinued fentaNYL (DURAGESIC) 12 mcg/hr Place 1 patch on the skin every 72 hours. 12/25/2021 07/20/2024 Discontinued metoprolol succinate 25 mg capsule,sprinkle ,ER 24hr Take by mouth. 07/20/2024 Discontinu ed mirabegron (Myrbetriq) 50 mg tablet extended release 24 hr 24 hr tablet Take 1 tablet (50 mg total) by mouth 1 (one) time each day. 07/20/2024 Discontinued Active Problems Problem Noted Date Diagnosed Date Acute gout 05/24/2024 Malignant neoplasm of overla pping sites of right breast in female, estrogen receptor positive 04/22/2024 Malignant neoplasm of upper- inner quadrant of left breast in female, estrogen receptor negative 04/22/2024 Malignant neoplasm metastatic to bone 02/24/2019 Overview (04/22/2024): Inactive diagnosis replaced for October 2022 IMO Load Encounters Date Type Department Care Team Description 07/20/2024 3:15 PM EST Office Visit [facility] Hematology Oncology [address] [place] [phone] Cricket Huntley MD Malignant neoplasm of overlapping sites of right breast in female, estrogen receptor positive (CMS/HCC) (Primary Dx); Malignant neoplasm of upper-inner quadrant of left breast in female, 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); Malignant neoplasm metastatic to bone (CMS/HCC) 07/20/[address] [facility] Hematology Oncology [address] [place] [phone] Cricket Huntley MD Appointment 07/14/2024 1:00 PM EST - 07/14/2024 11:59 PM EST Hospital Encounter [facility] Nuclear Medicine [address] [place] [phone] Discharge Disposition: Home or Self Care 07/14/2024 9:19 AM EST - 07/14/2024 11:59 PM EST Hospital Encounter [facility] CT Scan [address] [place] [phone] Malignant neoplasm metastatic to bone (CMS/HCC); Malignant neoplasm of upper-inner quadrant of left breast in female, 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) Discharge Disposition: Home or Self Care 07/14/2024 9:15 AM EST - 07/14/2024 11:59 PM EST Hospital Encounter [facility] Nuclear Medicine [address] [place] [phone] Malignant neoplasm metastatic to bone (CMS/HCC); Malignant neoplasm of upper-inner quadrant of left breast in female, 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) Discharge Disposition: Home or Self Care 06/21/[address] [facility] Hematology Oncology [address] [place] [phone] Cricket Huntley MD 06/08/[address] [facility] Hematology Oncology [address] [place] [phone] Dina Garcia MA CAP/Bone scan 06/07/2024 Lab Requisition [facility] Lab [address] [facility] [place] [address] Allison Munson NP Other abnormal findings on microbiological examination of urine 05/30/2024 11:45 AM EST Office Visit [facility] Hematology Oncology [address] [place] [phone] Cricket Huntley MD Malignant neoplasm metastatic to bone (CMS/HCC) (Primary Dx); Malignant neoplasm of upper-inner quadrant of left breast in female, 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) from Last 3 Months Surgical History Surgery Date Site/Laterality Comments MASTECTOMY 12/30/2005 Right PROCEDURE: HISTORICAL MASTECTOMY BREAST LUMPECTOMY 2014 Left PROCEDURE: HISTORICAL BREAST LUMPECTOMY COLONOSCOPY 04/2017 PROCEDURE: HISTORICAL COLONOSCOPY OTHER SURGICAL HISTORY 06/2017 PROCEDURE: DIAGNOSTIC MAMMOGRAM OTHER SURGICAL HISTORY 2014 Bilateral PROCEDURE: HISTORY OTHER; COMMENT: Breast biopsy OTHER SURGICAL HISTORY 1976 PROCEDURE: HISTORY OTHER; COMMENT: Septoplasty TONSILLECTOMY PROCEDURE: HISTORICAL TONSILLECTOMY; COMMENT: and appendectomy Medical History Medical History Date Comments GERD (gastroesophageal reflu x disease) 05/15/2021 DX:GERD (gastroesophageal re flux disease) Osteopenia 05/15/2021 DX:Osteopenia Atrial fibrillation (CMS/HCC) 05/15/2021 DX :Atrial fibrillation (HCC); COMMENT: On apixaban Breast cancer metastasized t o bone (CMS/HCC) 05/15/2021 DX:Breast cancer metastasize d to bone (HCC); COMMENT: S/p palliative radiation, on Zometa, letrozole, and Palbociclib follows w/ Dr. Cricket Huntley [facility] On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) 05/15/2021 DX:Chemotherapy-induced neur opathy (HCC); COMMENT: feet Compression fracture of lumb ar vertebra ([facility]/HCC) 05/15/2021 DX:Compression fracture of l umbar vertebra (HCC); COMMENT: T12, L1, L2 Spinal cord compression due to malignant neoplasm metastatic to spine ([facility]/HCC) 05/15/2021 DX:Spinal cord compression d ue to malignant neoplasm metastatic to spine (HCC); COMMENT: Hospitalized 04/20-04/25/21 [facility] for intractable low back pain Urinary incontinence 05/15/2021 DX:Urinary incontinence 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 's disease; COMMENT: clinically euthyroid Breast cancer ([facility]/HCC) DX:Breas t cancer (HCC) Family History Medical History Relation Name Comments Hypertension Brother Hypertension Father heart disease Lymphoma Father Relation Name Status Comments Brother Father Social History Tobacco Use Types Packs/Day Years [...] file Not on file Not on file Obstetrics History Last Filed Vital Signs Vital Sign Reading Time Taken Comments Blood Pressure 91/69 07/20/2024 3:17 PM EST Pulse 101 07/20/2024 3:17 PM EST Temperature 36.6 ??C (97.9 ??F) 07/20/2024 3:17 PM ES T Respiratory Rate - - Oxygen Saturation 100% 07/20/2024 3:17 PM EST Inhaled Oxygen Concentration - - Weight 59.4 kg (131 lb) 07/20/2024 3:17 PM EST Height 170.2 cm (5' 7 ) 07/20/2024 3:17 PM EST Body Mass Index 20.52 07/20/2024 3:17 PM EST Plan of Treatment Upcoming Encounters Date Type Department Care Team (Late st Contact Info) Description 08/29/2024 11:15 AM EST Office Visit [facility] Hematology Oncology [address] [place] [phone] Cricket Huntley MD [address] [place] [phone] Health Maintenance Due Date Last Done Comments Pneumococcal Vaccine: 65+ Years (1 of 2 - PCV) 01/28/1951 DTaP,Tdap,and Td Vaccines (1 - Tdap) 01/28/1963 Zoster Vaccines (1 of 2) 04/19/2008 02/23/2008 RSV Immunization Patients 60+ Years Old (1 - 1-dose 75+ series) 01/28/2019 Cholesterol Screening (Lipid Panel) 06/12/2022 Depression Screening 06/12/2022 Falls Risk Assessment 06/12/2022 Osteoporosis Screening (Bone Density Screening) 06/12/2022 Social Influencers of Health Screening 06/12/2022 Medicare Annual Wellness Visit 01/02/2024 01/01/2023 COVID-19 Vaccine ( season) 2024 05/21/2023, 11/14/2021, 05/26/2021, Additional history exists Hypertension/CHF/CAD Annual BMP Blood Test 07/12/2025 07/12/2024, 06/27/2024, 05/24/2024 Influenza Vaccine Completed 04/30/2024, , 04/11/2022, Additional history exists HIB Vaccines Aged Out No longer eligi ble based on patient's age to complete this topic HPV Vaccines Aged Out No longer eligi ble based on patient's age to complete this topic Hepatitis A Vaccines Aged Out No long er eligible based on patient's age to complete this topic Hepatitis B Vaccines Aged Out No long er eligible based on patient's age to complete this topic IPV Vaccines Aged Out No longer eligi ble based on patient's age to complete this topic MMR Vaccines Aged Out No longer eligi ble based on patient's age to complete this topic Meningococcal ACWY Vaccine Aged Out N o longer eligible based on patient's age to complete this topic RSV Immunization Patients Under 20 months Aged Out No longer eligible based on patient's age to complete this topic Varicella Vaccines Aged Out No longer eligible based on patient's age to complete this topic Procedures Procedure Name Priority Date/Time Associated Diagnosis Comments NM BONE/JOINT SCAN WHOLE BODY Routine 07/14/2024 2:13 PM EST Malignant neoplasm metastatic to bone (CMS/HCC) Malignant neoplasm of upper-inner quadrant of left breast in female, 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) CT CHEST/ABDOMEN/PELVIS W CONTRAST Routine 07/14/2024 11:02 AM EST Malignant neoplasm metastatic to bone (CMS/HCC) Malignant neoplasm of upper-inner quadrant of left breast in female, 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) VITAMIN D 25 HYDROXY Routine 07/12/2024 2:37 PM EST Primary hypothyroidism Vitamin D deficiency THYROID STIMULATING HORMONE WITH REFLEX TO FREE T4 AND FREE T3 Routine 07/12/2024 2:37 PM EST Primary hypothyroidism Vitamin D deficiency MANUAL DIFFERENTIAL - SYSMEX WAM Routine 07/12/2024 1:38 PM EST Malignant neoplasm of upper-inner quadrant of left female breast (CMS/HCC) 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) Malignant neoplasm of overlapping sites of right female breast (CMS/HCC) CBC WITH AUTO DIFFERENTIAL Routine 07/12/2024 1:38 PM EST Malignant neoplasm of upper-inner quadrant of left female breast (CMS/HCC) 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) Malignant neoplasm of overlapping sites of right female breast (CMS/HCC) CANCER ANTIGEN 27-29 Routine 07/12/2024 1:38 PM EST Malignant neoplasm of upper-inner quadrant of left female breast (CMS/HCC) 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) Malignant neoplasm of overlapping sites of right female breast (CMS/HCC) CBC AND DIFFERENTIAL Routine 07/12/2024 1:38 PM EST Malignant neoplasm of upper-inner quadrant of left female breast (CMS/HCC) 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) Malignant neoplasm of overlapping sites of right female breast (CMS/HCC) COMPREHENSIVE METABOLIC PANEL Routine 07/12/2024 1:38 PM EST Malignant neoplasm of upper-inner quadrant of left female breast (CMS/HCC) 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) Malignant neoplasm of overlapping sites of right female breast (CMS/HCC) EXTERNAL CARDIAC MRI Routine 07/12/2024 1:34 PM EST B-TYPE NATRIURETIC PEPTIDE Routine 06/27/2024 1:14 PM EST Left heart failure (CMS/HCC) BASIC METABOLIC PANEL Routine 06/27/2024 1:14 PM EST Left heart failure (CMS/HCC) BACTERIAL IDENTIFICATION AND SUSCEPTIBILITY, AEROBIC Routine 06/06/2024 12:00 AM EST Other abnormal findings on microbiological examination of urine B-TYPE NATRIURETIC PEPTIDE Routine 05/30/2024 12:52 PM EST Heart failure, unspecified (CMS/HCC) CBC WITH AUTO DIFFERENTIAL Routine 05/24/2024 3:45 PM EST Malignant neoplasm of upper-inner quadrant of left female breast (CMS/HCC) 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) Malignant neoplasm of overlapping sites of right female breast (CMS/HCC) CBC AND DIFFERENTIAL Routine 05/24/2024 3:45 PM EST Malignant neoplasm of upper-inner quadrant of left female breast (CMS/HCC) 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) Malignant neoplasm of overlapping sites of right female breast (CMS/HCC) CANCER ANTIGEN 27-29 Routine 05/24/2024 3:45 PM EST Malignant neoplasm of upper-inner quadrant of left female breast (CMS/HCC) 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) Malignant neoplasm of overlapping sites of right female breast (CMS/HCC) COMPREHENSIVE METABOLIC PANEL Routine 05/24/2024 3:45 PM EST Malignant neoplasm of upper-inner quadrant of left female breast (CMS/HCC) 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 -------- FINAL REPORT -------- Dictated By: Robert Gibbons Dictated Date: 07/16/2024 13:06 ET Assigned Physician: Robert Gibbons Reviewed and Electronically Signed By: Robert Gibbons Signed Date: 07/16/2024 13:11 ET Workstation ID: [id number] Transcribed By: Self Edit Transcribed Date: 07/16/2024 13:06 ET Narrative 07/16/2024 1:11 PM EST EXAMINATION: Whole body bone scan. CLINICAL INDICATION: Metastatic breast cancer. Restaging. COMPARISON: Whole body bone scan 01/22/2024 and 04/11/2024. TECHNIQUE: Following intravenous administration of 22.5 mCi of technetium 99 M MDP, whole body bone scan was obtained 3 hours later. FINDINGS: There is focal abnormal metabolic activity seen in the posterior left calvarium, neck, the entire thoracic, lumbar, sacral spine, bilateral ribs, sternum and left proximal femur. Moderate metabolic activity seen in the left humerus likely secondary to advanced degenerative arthritic changes. There is moderate S-shaped scoliosis of thoracolumbar lumbar spine. Normal activity seen in the kidneys and the bladder. Procedure Note Robert Gibbons MD - 07/16/2024 EXAMINATION: Whole body bone scan. CLINICAL INDICATION: Metastatic breast cancer. Restaging. COMPARISON: Whole body bone scan 01/22/2024 and 04/11/2024. TECHNIQUE: Following intravenous administration of 22.5 mCi of [id number] M MDP, whole body bone scan was obtained 3 hours later. FINDINGS: There is focal abnormal metabolic activity seen in the posteriorleft calvarium, neck, the entire thoracic, lumbar, sacral spine, bilateralribs, sternum and left proximal femur. Moderate metabolic activity seen inthe left humerus likely secondary to advanced degenerative arthriticchanges. There is moderate S-shaped scoliosis of thoracolumbar lumbar spine. Normal activity seen in the kidneys and the bladder. IMPRESSION: Diffuse metastatic skeletal activity, stable compared to previous exam04/11/2024. -------- FINAL REPORT -------- Dictated By: Robert Gibbons Dictated Date: 07/16/2024 13:06 ET Assigned Physician: Robert Gibbons Reviewed and Electronically Signed By: Robert Gibbons Signed Date: 07/16/2024 13:11 ET Workstation ID: [id number] Transcribed By: Self Edit Transcribed Date: 07/16/2024 13:06 ET Cricket Huntley MD IMG NM PROCEDURES * CT Chest/Abdomen/Pelvis w Contrast (07/14/2024 11:02 AM EST) Anatomical Region Laterality Modality Body Computed Tomogra phy 07/20/2024 11:3 5 AM EST Addenda Addendum by Travis Malcolm MD on 07/20/2024 2:29 PM EST [...] for cystitis. -------- ADDENDUM -------- Dictated By: TRAVIS MALCOLM Dictated Date: 07/20/2024 14:28 ET Assigned Physician: TRAVIS MALCOLM Reviewed and Electronically Signed By: TRAVIS MALCOLM Signed Date: 07/20/2024 14:29 ET Workstation ID: [id number] Transcribed By: Self Edit Transcribed Date: 07/20/2024 14:28 ET Impressions 07/20/2024 11:46 AM EST Resolved pleural effusions. No new or increasing metastatic disease in the chest, abdomen, or pelvis. -------- FINAL REPORT -------- Dictated By: TRAVIS MALCOLM Dictated Date: 07/20/2024 11:35 ET Assigned Physician: TRAVIS MALCOLM Reviewed and Electronically Signed By: TRAVIS MALCOLM Signed Date: 07/20/2024 11:46 ET Workstation ID: [id number] Transcribed By: Self Edit Transcribed Date: 07/20/2024 [...] unchanged. ??No new pathologic fracture. Procedure Note Travis Malcolm MD - 07/20/2024 PROCEDURE: Chest, abdomen, [...] pelvis. -------- FINAL REPORT -------- Dictated By: TRAVIS MALCOLM Dictated Date: 07/20/2024 11:35 ET Assigned Physician: TRAVIS MALCOLM Reviewed and Electronically Signed By: TRAVIS MALCOLM Signed Date: 07/20/2024 11:46 ET Workstation ID: [id number] Transcribed By: Self Edit Transcribed Date: 07/20/2024 11:35 ET Cricket Huntley MD IMG CT PROCEDURES * Thyroid stimulating hormone with reflex to free t4 and free t3 (07/12/2024 2:37 PM EST) [facility] TSH 1.48 0.40 - 4.00 mcIU/mL LAB CHEMISTRY METHOD 07/12/2024 5:00 PM EST [facility] Blood Venous blood specimen / Unknown Venipuncture / Unknown 07/12/2024 2:37 PM EST 07/12/2024 4:34 PM EST Maggi Swift MD LAB BLOOD ORDERABLES Performing Organization Address [facility]/ZIP Co de Phone Number [facility] [address] [place] [address], * Vitamin D 25 hydroxy (07/12/2024 2:37 PM EST) [facility] Vit D, 25-Hydroxy 71.5 30.0 - 80.0 ng/mL LAB CHEMISTRY METHOD 07/12/2024 5:00 PM EST [facility] Blood Venous blood specimen / Unknown Venipuncture / Unknown 07/12/2024 2:37 PM EST 07/12/2024 4:34 PM EST Maggi Swift MD LAB BLOOD ORDERABLES [facility] [address] [place] [address], [place] [phone] * (ABNORMAL) Manual differential (07/12/2024 1:38 PM EST) [facility] Neutrophils % 66.0 % LAB HEMETOLOGY METHOD 07/12/2024 5:19 PM EST [facility] Bands % 2.0 % LAB HEMETOLOGY METHOD 07/12/2024 5:19 PM EST [facility] Lymphocytes % 20.0 % LAB HEMETOLOGY METHOD 07/12/2024 5:19 PM [facility] Monocytes % 10.0 % LAB HEMETOLOGY METHOD 07/12/2024 5:19 PM [facility] Eosinophils % 0.0 % LAB HEMETOLOGY METHOD 07/12/2024 5:19 PM [facility] Basophils % 3.0 % LAB HEMETOLOGY METHOD 07/12/2024 5:19 PM [facility] Neutrophils Absolute Manual 1.25(L) 1.50 - 7.00 K/mcL LAB HEMETOLOGY METHOD 07/12/2024 5:19 PM [facility] Bands Absolute Manual 0.04(H) 0.00 - 0.00 K/mcL LAB HEMETOLOGY METHOD 07/12/2024 5:19 PM [facility] Lymphocytes Absolute 0.38(L) 1.00 - 5.00 K/mcL LAB HEMETOLOGY METHOD 07/12/2024 5:19 PM [facility] Monocytes Absolute Manual 0.19(L) 0.20 - 1.00 K/mcL LAB HEMETOLOGY METHOD 07/12/2024 5:19 PM [facility] Eosinophils Absolute Manual 0.00 0.00 - 0.50 K/mcL LAB HEMETOLOGY METHOD 07/12/2024 5:19 PM [facility] Basophils Absolute Manual 0.06 0.00 - 0.20 K/mcL LAB HEMETOLOGY METHOD 07/12/2024 5:19 PM [facility] Rbc Morphology Present( A) Consistent with indices, Normal for LAB HEMETOLOGY METHOD 07/12/2024 5:19 PM [facility] Comment:RBC: Morphology agre es with CBC Platelet Morphology - WAM See Note(A) Normal LAB HEMETOLOGY METHOD 07/12/2024 5:19 PM [facility] Comment:PLT: Normal Ovalocytes Present 5 - 10%(A) (none) LAB HEMETOLOGY METHOD 07/12/2024 5:19 PM EST [facility] Toxic Granules Present Present( A) (none) LAB HEMETOLOGY METHOD 07/12/2024 5:19 PM EST [facility] Blood Venous blood specimen / Unknown Venipuncture / Unknown 07/12/2024 1:38 PM EST 07/12/2024 4:34 PM EST Cricket Huntley MD LAB BLOOD ORDERABLE S [facility] [address] [place] [address], * (ABNORMAL) CBC auto differential (07/12/2024 1:38 PM EST) Only the most recent of2 resultswithin the time period is included. WBC 1.9(LL) 4.8 - 10.8 K/mcL LAB HEMETOLOGY METHOD 07/12/2024 5:19 PM [facility] RBC 2.80(L) 3.80 - 4.80 M/mcL LAB HEMETOLOGY METHOD 07/12/2024 5:19 PM [facility] Hemoglobin 10.3(L) 11.5 - 16.0 g/dL LAB HEMETOLOGY METHOD 07/12/2024 5:19 PM [facility] Hematocrit 30.4(L) 35.0 - 47.0 % LAB HEMETOLOGY METHOD 07/12/2024 5:19 PM [facility] MCV 108.2(H) 79.0 - 98.0 FL LAB HEMETOLOGY METHOD 07/12/2024 5:19 PM [facility] MCH 36.7(H) 27.0 - 32.0 pcg LAB HEMETOLOGY METHOD 07/12/2024 5:19 PM [facility] MCHC 33.9 32.0 - 37.0 g/dL LAB HEMETOLOGY METHOD 07/12/2024 5:19 PM EST [facility] RDW 16.3(H) 11.0 - 15.0 % LAB HEMETOLOGY METHOD 07/12/2024 5:19 PM EST [facility] Platelets 135 130 - 400 K/mcL LAB HEMETOLOGY METHOD 07/12/2024 5:19 PM EST [facility] MPV 9.9 7.0 - 11.0 FL LAB HEMETOLOGY METHOD 07/12/2024 5:19 PM EST [facility] NRBC 0.0 <1.0 % LAB HEMETOLOGY METHOD 07/12/2024 5:19 PM EST [facility] NRBC Absolute 0.00 <0.10 K/mcL LAB HEMETOLOGY METHOD 07/12/2024 5:19 PM EST [facility] Blood Venous blood specimen / Unknown Venipuncture / Unknown 07/12/2024 1:38 PM EST 07/12/2024 4:34 PM EST Cricket Huntley MD LAB BLOOD ORDERABLE S [facility] [address] [place] [address], * (ABNORMAL) Cancer antigen 27-29 (07/12/2024 1:38 PM EST) Only the most recent of2 resultswithin the time period is included. CA 27.29 169.8(H) <38.6 U/mL 07/15/2024 11:18 AM EST [facility] Comment: The Siemens Advia Centaur [id number] Chemiluminescent Immunoassay is used. Results obtained with different assay methods or kits cannot be used interchangeably. Results cannot be interpreted as absolute evidence of the presence or absence of malignant disease. Test performed at [facility], [address] [place], [place] ??[address] ? [phone] Ivett Anton MD, PhD - Attorney Blood Venous blood specimen / Unknown Venipuncture / Unknown 07/12/2024 1:38 PM EST 07/12/2024 4:33 PM EST Cricket Huntley MD LAB BLOOD ORDERABLE S [facility] [address] [place] [address] * (ABNORMAL) Comprehensive metabolic panel (07/12/2024 1:38 PM EST) Only the most recent of2 resultswithin the time period is included. Sodium 131(L) 133 - 145 mmol/L LAB CHEMISTRY METHOD 07/12/2024 4:54 PM [facility] Potassium 3.9 3.5 - 5.5 mmol/L LAB CHEMISTRY METHOD 07/12/2024 4:54 PM [facility] Chloride 96 96 - 110 mmol/L LAB CHEMISTRY METHOD 07/12/2024 4:54 PM [facility] CO2 28 21 - 32 mmol/L LAB CHEMISTRY METHOD 07/12/2024 4:54 PM [facility] Anion Gap 7 3 - 11 LAB CHEMISTRY METHOD 07/12/2024 4:54 PM [facility] [facility] Glucose 99 70 - 100 mg/dL LAB CHEMISTRY METHOD 07/12/2024 4:54 PM [facility] BUN 35(H) 5 - 25 mg/dL LAB CHEMISTRY METHOD 07/12/2024 4:54 PM [facility] Creatinine 1.33(H) 0.50 - 1.10 mg/dL LAB CHEMISTRY METHOD 07/12/2024 4:54 PM [facility] eGFR 41(L) >=60 mL/min/1. 73m2 LAB CHEMISTRY METHOD 07/12/2024 4:54 PM [facility] Comment:Calculation based on the??Chronic Kidney Disease Epidemiology Collaboration (CKD-EPI) equation refit??without adjustment for race. BUN/Creatinine Ratio 26.3 LAB CHEMISTRY METHOD 07/12/2024 4:54 PM [facility] Calcium 9.3 8.5 - 10.5 mg/dL LAB CHEMISTRY METHOD 07/12/2024 4:54 PM [facility] AST (SGOT) 20 10 - 42 unit/L LAB CHEMISTRY METHOD 07/12/2024 4:54 PM [facility] ALT (SGPT) 20 10 - 60 unit/L LAB CHEMISTRY METHOD 07/12/2024 4:54 PM [facility] Alkaline Phosphatase 73 42 - 121 unit/L LAB CHEMISTRY METHOD 07/12/2024 4:54 PM [facility] Total Protein 7.3 6.0 - 8.0 g/dL LAB CHEMISTRY METHOD 07/12/2024 4:54 PM [facility] Albumin 4.3 3.2 - 5.0 g/dL LAB CHEMISTRY METHOD 07/12/2024 4:54 PM [facility] Total Bilirubin 1.2 0.0 - 1.4 mg/dL LAB CHEMISTRY METHOD 07/12/2024 4:54 PM [facility] Blood Venous blood specimen / Unknown Venipuncture / Unknown 07/12/2024 1:38 PM EST 07/12/2024 4:33 PM EST Cricket Huntley MD LAB BLOOD ORDERABLE S [facility] [address] [place] [address], * External Cardiac MRI (07/12/2024 1:34 PM EST) Anatomical Region Laterality Modality Cardiac Diagnost ic Taylor Drew MD [facility] PROCEDURES * (ABNORMAL) B-type natriuretic peptide (06/27/2024 1:14 PM EST) Only the most recent of2 resultswithin the time period is included. BNP 1,032(H) <=100 pcg/mL LAB CHEMISTRY METHOD 06/27/2024 5:11 PM [facility] Blood Venous blood specimen / Unknown Venipuncture / Unknown 06/27/2024 1:14 PM EST 06/27/2024 4:34 PM EST Taylor Drew MD LAB BLOOD ORDERABLES [facility] [address] [place] [address], * (ABNORMAL) Basic metabolic panel (06/27/2024 1:14 PM EST) Pathologist [facility] Sodium 135 133 - 145 mmol/L LAB CHEMISTRY METHOD 06/27/2024 4:50 PM [facility] Potassium 4.5 3.5 - 5.5 mmol/L LAB CHEMISTRY METHOD 06/27/2024 4:50 PM [facility] Chloride 98 96 - 110 mmol/L LAB CHEMISTRY METHOD 06/27/2024 4:50 PM [facility] CO2 25 21 - 32 mmol/L LAB CHEMISTRY METHOD 06/27/2024 4:50 PM [facility] Anion Gap 12(H) 3 - 11 LAB CHEMISTRY METHOD 06/27/2024 4:50 PM [facility] Glucose 89 70 - 100 mg/dL LAB CHEMISTRY METHOD 06/27/2024 4:50 PM [facility] BUN 28(H) 5 - 25 mg/dL LAB CHEMISTRY METHOD 06/27/2024 4:50 PM [facility] Creatinine 1.02 0.50 - 1.10 mg/dL LAB CHEMISTRY METHOD 06/27/2024 4:50 PM [facility] eGFR 56(L) >=60 mL/min/1. 73m2 LAB CHEMISTRY METHOD 06/27/2024 4:50 PM EST [facility] Comment:Calculation based on the??Chronic Kidney Disease Epidemiology Collaboration (CKD-EPI) equation refit??without adjustment for race. BUN/Creatinine Ratio 27.5 LAB CHEMISTRY METHOD 06/27/2024 4:50 PM EST [facility] Calcium 9.5 8.5 - 10.5 mg/dL LAB CHEMISTRY METHOD 06/27/2024 4:50 PM EST [facility] Blood Venous blood specimen / Unknown Venipuncture / Unknown 06/27/2024 1:14 PM EST 06/27/2024 4:34 PM EST Taylor Drew MD LAB BLOOD ORDERABLES [facility] [address] [place] [address], * (ABNORMAL) Bacterial identification and susceptibility, aerobic (06/06/2024 12:00 AM EST) Culture, Bacterial ID and Sensitivity Klebsiella pneumoniae ssp pneumoniae(A) JHONY 06/08/2024 8:15 AM EST [facility] Comment: This is an edited result. Previous organism was Gram negative bacilli on 06/07/2024 at 1105 EST. Other Urine specimen from urethra / Unknown 06/06/2024 06/07/2024 9:53 AM EST Narrative Organism Antibiotic Method Susceptibility Klebsiella pneumoniae ssp pneumoniae Amoxicillin/Clavulanate JHONY 8 ug/ml: Susceptible Klebsiella pneumoniae ssp pneumoniae Ampicillin/Sulbactam JHONY 4 ug/ml: Susceptible Klebsiella pneumoniae ssp pneumoniae Piperacillin/Tazobactam JHONY <=4 ug/ml: Susceptible Klebsiella pneumoniae ssp pneumoniae Cefazolin (Urine) JHONY 2 ug/ml: Susceptible Klebsiella pneumoniae ssp pneumoniae Cefoxitin JHONY <=4 ug/ml: Susceptible Klebsiella pneumoniae ssp pneumoniae Ceftazidime JHONY <=0.5 ug/ml: Susceptible Klebsiella pneumoniae ssp pneumoniae Ceftriaxone JHONY <=0.25 ug/ml: Susceptible Klebsiella pneumoniae ssp pneumoniae Cefepime JHONY <=0.12 ug/ml: Susceptible Klebsiella pneumoniae ssp pneumoniae Meropenem JHONY <=0.25 ug/ml: Susceptible Klebsiella pneumoniae ssp pneumoniae Amikacin JHONY 2 ug/ml: Susceptible Klebsiella pneumoniae ssp pneumoniae Gentamicin JHONY <=1 ug/ml: Susceptible Klebsiella pneumoniae ssp pneumoniae Ciprofloxacin JHONY <=0.06 ug/ml: Susceptible Klebsiella pneumoniae ssp pneumoniae Levofloxacin JHONY <=0.12 ug/ml: Susceptible Klebsiella pneumoniae ssp pneumoniae Nitrofurantoin JHONY 32 ug/ml: Susceptible Klebsiella pneumoniae ssp pneumoniae Trimethoprim/Sulfamethoxazo le JHONY <=20 ug/ml: Susceptible Allison Munson NP LAB MICROBIOLOGY - GENERAL ORDERABLES Performing Organization Address [facility]/ZIP Co de Phone Number [facility] [address] [place] [address], [place] [phone] * (ABNORMAL) Uric acid (05/24/2024 3:45 PM EST) [facility] Signature Uric Acid 8.2(H) 3.1 - 7.8 mg/dL LAB CHEMISTRY METHOD 05/24/2024 5:19 PM EST [facility] Blood Venous blood specimen / Unknown Venipuncture / Unknown 05/24/2024 3:45 PM EST 05/24/2024 4:50 PM EST rCicket Huntley MD LAB BLOOD ORDERABLE S Performing Organization Address City/[facility]/ZIP Co de Phone Number [facility] [address] [place] [address], [place] [phone] from Last 3 Months Care Teams Sword Swallower Relationship Specialty Start Date End Date Maggi Swift MD [address] [place] [address] PCP - General Internal Medicine 12/05/21
--- OUTSIDE RECORDS SUMMARY | 2024-07-28 14:19 | XMS_ITS | Encounter Summary ---
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) Procedures NM Bone/Joint Scan Whole Body Cricket Huntley MD [address] [place] [phone] [address] Referral ID Status Reason Start Date Expiration Date Visits Re quested Visits Authorized [id number] Closed 05/30/2024 05/30/2025 2 2 Reason for Visit * Imaging (Routine) - Closed Specialty Diagnoses / Procedures Referred By Jud jaffe Referred To Contact Radiology Diagnoses Malignant neoplasm metastatic to bone (CMS/HCC) Malignant neoplasm of upper-inner quadrant of left breast in female, 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) Procedures NM Bone/Joint Scan Whole Body Cricket Huntley MD [address] [place] [phone] [address] Referral ID Status Reason Start Date Expiration Date Visits Re quested Visits Authorized [id number] Closed 05/30/2024 05/30/2025 2 2 Encounter Details Date Type Department Care Team (Latest Contact Info) Description 07/14/2024 9:15 AM EST - 07/14/2024 11:59 PM EST Hospital Encounter [facility] Nuclear Medicine [address] [place] [address] Malignant neoplasm metastatic to bone [...] 07/20/2024 UNABLE TO FIND Benadryl soln 12.5mg/5 [id number] susp mouth wash 1:1:1 Swish and spit 15 mL every 4 (four) hours as needed. 02/20/2022 07/20/2024 documented as of this encounter Discharge Disposition Disposition Code Departure Means Destination Home or Self Care documented in this encounter Plan of Treatment Upcoming Encounters Date Type Department Care Team (Late st Contact Info) Description 08/29/2024 11:15 AM EST Office Visit [facility] Hematology Oncology [address] [place] [phone] Cricket Huntley MD [address] [place] [address] documented as of this encounter Procedures Procedure Name Priority Date/Time Associated Diagnosis Comments NM BONE/JOINT SCAN WHOLE BODY Routine 07/14/2024 2:13 PM EST Malignant neoplasm metastatic to bone (CMS/HCC) Malignant neoplasm of upper-inner quadrant of left breast in female, 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) documented in this encounter Results * NM Bone/Joint Scan Whole Body [...] Signed Date: 07/16/2024 13:11 ET Workstation ID: [id number] Transcribed By: Self Edit Transcribed Date: 07/16/2024 [...] Following intravenous administration of 22.5 mCi of [id number] M MDP, whole body bone scan was [...] Signed Date: 07/16/2024 13:11 ET Workstation ID: [id number] Transcribed By: Self Edit Transcribed Date: 07/16/2024 13:06 ET Cricket Huntley MD IMG NM PROCEDURES documented in this encounter Visit Diagnoses Diagnosis Malignant neoplasm metastatic to bone (CMS/HCC) Malignant neoplasm of upper-inner quadrant of left breast in female, 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) documented in this encounter Administered Medications Inactive Administered Medications - up to 3 most recent administrations Medication Order MAR Action Action Date Dose Rate Site sodium chloride 0.9 % flush 10 mL 10 mL, intravenous, Once, On Lucia 07/14/24 at 1045, For 1 dose Given 07/14/2024 10:16 AM EST 10 mL TC-99M medronate radio-isotope injection 22.5 millicurie 22.5 millicurie, intravenous, Once in imaging, Starting on Lucia 07/14/24 at 1030, For 1 dose Given 07/14/2024 10:16 AM EST 22.5 millicuries documented in this encounter Care Teams Automation Test Developer Relationship Specialty Start Date End Date Maggi Swift MD [address] [facility] [address] [place] [address] PCP - General Internal Medicine 12/05/21 documented as of this encounter
--- OUTSIDE RECORDS SUMMARY | 2024-07-28 14:19 | XMS_ITS | Continuity of Care Document ---
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 Role Phone Maggi Swift MD Primary Care Physician [id number] Date(s): 06/21/24 - 06/28/24 [facility] [address] [place] [id number]- [place] Encounter Diagnosis Afib(Discharge Diagnosis) - 06/21/24 Attending Physician: Taylor Drew MD Referring Physician: Maggi Swift MD Encounter Type: Office Visit Allergies, Adverse Reactions, Alerts Substance Criticality Severity Reaction Reaction Severity Status Vantin Active moxifloxacin Active Avelox Active Seasonale Active pneumococcal vaccines Active Topical Skin Adhesive Active Immunizations Given and Recorded Vaccine Date Status Refusal Reason influenza virus vaccine, inactivated 04/30/24 Give n Zoster Vaccine Live 02/23/08 Given Medications Calcium Plus Vitamin D3 By Mouth, Daily, with zinc, 0 Refills, Maintenance, 05/20/24 8:46:00 AM EST, Partial fill upon patient request if the prescription is for a schedule II opioid drug. Start Date: 05/20/24 Status: Ordered Repeat number: 1 carvedilol 3.125 mg oral tablet 3.125 mg, 1, tablet, By Mouth, 2 times a day, # 60 tablet, Refills 2, Tot. Refills 2, Maintenance, 05/07/24 12:31:00 PM EDT, Route to Pharmacy Electronically, [facility]/pharmacy #[id number], Partial fill upon patient request if the prescription is for a schedule II opioid drug., 171, cm, 05/07/24 8:45:00 EDT, Height, 60.2, kg, 04/29/24 16:39:00 EDT, Dry Weight Start Date: 05/07/24 Stop Date: 08/05/24 Status: Ordered Quantity: 60.0 Unit: tablet Repeat number: 3 Colace Clear = 50 mg, By Mouth, 2 times a day, PRN as needed for constipation, 0 Refills, Maintenance, 11/24/22 1:57:00 PM EDT, Partial fill upon patient request if the prescription is for a schedule II opioid drug. Start Date: 11/24/22 Status: Ordered Repeat number: 1 Cranberry 0 Refills, Maintenance, 04/19/24 2:20:00 PM EDT, Partial fill upon patient request if the prescription is for a schedule II opioid drug. Start Date: 04/19/24 Status: Ordered Repeat number: 1 Eliquis 2.5 mg oral tablet 1 tablet = 2.5 mg, By Mouth, 2 times a day, # 60 tablet, 1 Refills, Maintenance, 05/05/24 9:49:00 AM EDT, Tablet, [facility], Partial fill upon patient request if the prescription is for a schedule II opioid drug., 171, cm, 05/05/24 7:31:00 EDT, Height, 60.2, kg, 04/29/24 16:39:00 EDT, Dry Weight Start Date: 05/05/24 Status: Ordered Quantity: 60.0 Unit: tablet Repeat number: 2 Entresto 24 mg-26 mg oral tablet 1 tablet, By Mouth, 2 times a day, # 60 tablet, 5 Refills, Maintenance, 05/05/24 9:49:00 AM EDT, Tablet, [facility], Partial fill upon patient request if the prescription is for a schedule II opioid drug., 1 tablet By Mouth 2 times a day, 171, cm, 05/05/24 7:31:00 EDT, Height, 60.2, kg, 04/29/24 16:39:00 EDT, Dry Weight Start Date: 05/05/24 Status: Ordered Quantity: 60.0 Unit: tablet Repeat number: 6 Flonase 50 mcg/inh nasal spray Daily, PRN Congestion, 0 Refills, Maintenance, 11/24/22 1:58:00 PM EDT, Partial fill upon patient request if the prescription is for a schedule II opioid drug. Start Date: 11/24/22 Status: Ordered Repeat number: 1 Ibrance 125 mg oral capsule 1 capsule = 125 mg, By Mouth, Daily, daily for 21 days, then off for 7 days, # 21 capsule, 0 Refills, Maintenance, 02/08/24 4:46:00 PM EDT, Capsule, Partial fill upon patient request if the prescription is for a schedule II opioid drug. Start Date: 02/08/24 Status: Ordered Quantity: 21.0 Unit: capsule Repeat number: 1 letrozole 2.5 mg oral tablet 1 tablet = 2.5 mg, By Mouth, Daily, 0 Refills, Maintenance, 01/28/23 7:40:00 AM EDT, Partial fill upon patient request if the prescription is for a schedule II opioid drug. Start Date: 01/28/23 Status: Ordered Repeat number: 1 omeprazole 20 mg oral delayed release tablet 1 tablet = 20 mg, By Mouth, Daily, 0 Refills, Maintenance, 08/18/17 8:50:13 AM EST Start Date: 08/18/17 Status: Ordered Repeat number: 1 spironolactone 25 mg oral tablet 12.5 mg, 0.5, tablet, By Mouth, Daily, # 15 tablet, Refills 3, Tot. Refills 3, Maintenance, 05/05/24 9:49:00 AM EDT, Route to Pharmacy Electronically, [facility], Partial fill upon patient request if the prescription is for a schedule II opioid drug., 171, cm, 05/05/24 7:31:00 EDT, Height, 60.2, kg, 04/29/24 16:39:00 EDT, Dry Weight Start Date: 05/05/24 Stop Date: 09/02/24 Status: Ordered Quantity: 15.0 Unit: tablet Repeat number: 4 torsemide 20 mg oral tablet 1 tablet = 20 mg, By Mouth, Daily, # 30 tablet, 3 Refills, Maintenance, 05/05/24 9:49:00 AM EDT, Tablet, [facility], Partial fill upon patient request if the prescription is for a schedule II opioid drug., 171, cm, 05/05/24 7:31:00 EDT, Height, 60.2, kg, 04/29/24 16:39:00 EDT, Dry Weight Start Date: 05/05/24 Status: Ordered Quantity: 30.0 Unit: tablet Repeat number: 4 Tylenol Caplet = 500 mg, By Mouth, Every 8 hours, 0 Refills, Maintenance, 11/24/22 1:55:00 PM EDT, Partial fill upon patient request if the prescription is for a schedule II opioid drug. Start Date: 11/24/22 Status: Ordered Repeat number: 1 Zofran ODT 4 mg oral tablet, disintegrating 1 tablet, By Mouth, Every 8 hours, PRN as needed for nausea/vomiting, 0 Refills, Maintenance, 11/24/22 1:56:00 PM EDT, DIS Tablet, Partial fill upon patient request if the prescription is for a schedule II opioid drug. Start Date: 11/24/22 Status: Ordered Repeat number: 1 Zometa IVPB 4 mg, IV Infusion, Maintenance, 11/24/22 1:52:00 PM EDT Start Date: 11/24/22 Status: Ordered Repeat number: 1 Problem List Diagnosis Diagnosis Type Effective Dates Health Status Clini jered Service Informant Afib Discharge Diagnosis 06/21/24 Vital Signs Most recent to oldest [Reference Range]: 1 2 Height 171 cm (06/21/24 12:24 PM) 171 cm (06/21/24 11:44 AM) Weight 58.8 kg (06/21/24 11:44 AM) Pulse Rate [55-90 bpm] 88 bpm (06/21/24 12:24 PM) 111 bpm *H* (06/21/24 11:44 AM) Body Mass Index [18.5-24.99 kg/m2] 20.11 kg/m2 (06/21/24 11:44 AM) Blood Pressure [90-138/55-84 mm Hg] 88/6 2mm Hg *L* (06/21/24 12:24 PM) 80/59mm Hg *L* (06/21/24 11:44 AM) Blood pressure sites Arm, left (06/21/24 12:24 PM) Arm, right (06/21/24 11:44 AM) Weight Obtained Via Bed scale (06/21/24 11:44 AM) Social History Social History Type Response Smoking Status Former smoker, quit more than 30 days ago entered on: 04/02/23 Sex Sex Representation Female (finding) Cardiology Outpatient Note * Viki MAYA, Taylor N: PERFORM Event Display: Cardiology Note Office Authored Date: [id number] Patient: ??DANIELA LOPES ? Age:??79 Years?Sex:??Female?:??1945?? Indication for Consult AFIB FUV History of Present Illness/Interval History .??Chuck??is a 79-year-old female??with past medical history??significant for??HFrEF??LVEF 35 to 40%??(nonischemic,??due to chemotherapy??with Adriamycin/doxorubicin),PHTN??, paroxysmal??A-fib onapixaban, GERD, Adriana's thyroiditis,??metastatic breast cancer??s/p mastectomy??on chemo who presents for follow-up.??She had a cardiac MRI yesterday, pending results.??Denies shortness of breathor chest pain. She does try to be active. She does note some mild swelling.? Review of Systems Pertinent positives as per the HPI.?? All other systems were reviewed and were negative Physical Exam Vitals & Measurements HR:??111??(Peripheral)?? BP:??80/59?? HT:??171??cm?? WT:??58.8??kg?? BMI:??20.11?? Weight lb/oz: 129 lb 10 oz General:??In no acute distress HEENT:??Sclerae anicteric, mucous membranes moist Cardiovascular: ??Regular rhythm, normal first and second heart sounds.?? No murmurs or gallops.?No JVP Extremities: Warm,??noedema Neuro:??Nonfocal Psych: Alert and oriented with appropriate affect. Assessment/Plan 1.??Heart failure ?-Echo showed EF 35-40%.?Nonischemic by [facility]. -Recent??hospitalization for acute on chronic heart failure. -Continue??carvedilol, Entresto,??spironolactone,??torsemide -Cardiac MRI is pending read -discussed low salt and fluid intake. -recheck bmp in a few days. -will also refer her to F. -will recheck blood pressure and will space out medications.? 2.??Afib ?-denies palpitations. -CHADSVASC score of 4, on Eliquis -??EKG during recent hospitalization showed atrial fibrillation -Continue Eliquis, carvedilol Orders: MRI Cardiac W+W/O Contrast 3.?? 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 Patient and her son voiced understanding and agreement to above plan and all questions were answered.?? Allergies Avelox Seasonale Topical Skin Adhesive Vantin moxifloxacin pneumococcal vaccines Home Medications Calcium Plus Vitamin D3, By Mouth, Daily carvedilol 3.125 mg oral tablet, 3.125 mg= 1 tablet, By Mouth, 2 times a day, 2 refills Colace Clear, 50 mg, By Mouth, 2 times a day, PRN Cranberry Eliquis 2.5 mg oral tablet, 2.5 mg= 1 tablet, By Mouth, 2 times a day, 1 refills Entresto 24 mg-26 mg oral tablet, 1 tablet, By Mouth, 2 times a day, 5 refills Flonase 50 mcg/inh nasal spray, Daily, PRN Ibrance 125 mg oral capsule, 125 mg= 1 capsule, By Mouth, Daily letrozole 2.5 mg oral tablet, 2.5 mg= 1 tablet, By Mouth, Daily omeprazole 20 mg oral delayed release tablet, 20 mg= 1 tablet, By Mouth, Daily spironolactone 25 mg oral tablet, 12.5 mg= 0.5 tablet, By Mouth, Daily, 3 refills torsemide 20 mg oral tablet, 20 mg= 1 tablet, By Mouth, Daily, 3 refills Tylenol Caplet, 500 mg, By Mouth, Every 8 hours Zofran ODT 4 mg oral tablet, disintegrating, 1 tablet, By Mouth, Every 8 hours, PRN Zometa IVPB, 4 mg, IV Infusion Lab Results Cardiology Labs WBC:??2.6 k/mm3??Low (05/07/24) RBC:??2.89 m/mm3??Low (05/07/24) Hgb:??10.2 Gm/dL??Low (05/07/24) Hct:??29.9 %??Low (05/07/24) MCV:??103.5 femtoliters??High (05/07/24) MCH:??35.3 pg??High (05/07/24) MCHC: 34.1 Gm/dL (05/07/24) Platelet Count: 165 k/mm3 (05/07/24) RDW-SD:??65.6 femtoliters??High (05/07/24) Nucleated RBC (Automated): 0 #/100 WBC'S (05/07/24) Abs. Neut: 1.7 k/mm3 (05/02/24) Abs. Lymph:??0.5 k/mm3??Low (05/02/24) Abs. [place]:??0.3 k/mm3??Low (05/02/24) Abs. Eo: 0.1 k/mm3 (05/02/24) Abs. Baso: 0.1 k/mm3 (05/02/24) Neut %: 65.3 % (05/02/24) [place] %: 9.5 % (05/02/24) Eos %: 3.4 % (05/02/24) Baso %:??2.7 %??High (05/02/24) Imm Gran: 0.8 % (05/02/24) Abs. Imm Gran: 0 k/mm3 (05/02/24) INR:??1.2??High (04/30/24) Protime (PT):??12.6 seconds??High (04/30/24) APTT: 28.2 seconds (02/14/24) Sodium:??132 mmol/L??Low (05/07/24) Potassium: 4.6 mmol/L (05/07/24) Chloride:??92 mmol/L??Low (05/07/24) Bicarbonate Level: 26 mmol/L (05/07/24) Glucose Level: 99 mg/dL (05/07/24) Hemoglobin A1C (Monitoring):??5.8 %??High (02/09/24) BUN:??25 mg/dL??High (05/07/24) BUN: 13 mg/dL (03/15/24) Creatinine-Blood: 0.93 mg/dL (05/07/24) Calcium: 9.3 mg/dL (05/07/24) Protein, Total:??5.9 Gm/dL??Low (05/03/24) Albumin: 3.6 Gm/dL (05/03/24) Alkaline Phosphatase: 81 units/L (02/08/24) AST (SGOT):??54 units/L??High (02/08/24) ALT (SGPT):??53 units/L??High (02/08/24) Bilirubin, Total:??1.3 mg/dL??High (02/08/24) Nt-Probnp:??1814 pg/mL??High (05/02/24) Cholesterol: 151 mg/dL (02/09/24) Triglycerides: 54 mg/dL (02/09/24) HDL Cholesterol: 69 mg/dL (02/09/24) LDL Cholesterol: 71 mg/dL (02/09/24) Non HDL Cholesterol: 82 mg/dL (02/09/24) TSH: 0.78 uIU/mL (02/08/24) Diagnostic Impression ECG ECG 12-Lead ?? 13:03:00 Ventricular Rate: 79 BPM QRS Duration: 126 ms Q-T Interval: 438 ms QTC Calculation(Bazett): 502 ms R [place]: -5 degrees T [place]: 110 degrees Atrial fibrillation Left bundle branch block Abnormal ECG When compared with ECG of 29-APR-2024 00:47, Vent. rate has decreased BY 44 BPM Confirmed by Gokul Gallagher ([id number]) on 05/05/2024 1:36:59 PM ?? [place]: Gokul Gallagher ?? Signed By: Gokul Gallagher MD ?? ECG 12-Lead ?? 13:03:00 Please click on pdf link to open report ?? Signed By: Goldsweig MD, Gokul M Echo Echocardiogram - Complete ?? 14:12:24 Summary The left ventricle is poorly visualized but improved with contrast enhancement. The left ventricular size is normal. Left ventricular wall thickness is normal. The LV systolic function is moderately reduced . The left ventricular ejection fraction is 35-40 %. The left ventricular ejection fraction by bi-plane Pham???s method. There is moderate global hypokinesis of the left ventricle. Unable to assess diastolic function . ?? The left atrium is severely dilated. ?? The aortic valve is probably trileaflet . The aortic valve appears moderately calcified. The aortic valve leaflet opening is mildly to moderately decreased . There is mild aortic stenosis. ?? The mitral valve appears severely calcified. Mitral leaflet excursion is moderately reduced . There is calcific mitral valve stenosis. The mitral valve mean gradient is 5 mmHg at 105 bpm. There is mild to moderate mitral regurgitation. ?? The right ventricle is normal in size. Right ventricular systolic function is reduced. ?? The tricuspid valve is poorly visualized. There is moderate tricuspid valve regurgitation. ?? There is mild pulmonary hypertension. The pulmonary artery systolic pressure estimation is 45-50 mmHg. ?? The inferior vena cava is moderately dilated with poor inspiratory collapse consistent with elevated right atrial pressures. ?? Comparison Comparison is made to the study of February 09, 2024. There is no definite interval change. ?? Signature ?? Signed By: Laila Draper MD Cardiac Cath Procedure Cardiac Cath Procedure ?? 13:59:00 Conclusions ?? Diagnostic Summary There is no significant gradient on pullback across the aortic valve. Successful hemostasis of the right radial artery using a radial compression device . LVEDP is normal. Right dominant system. The right coronary artery is large with mild nonobstructive disease in its midportion as described above. Normal left main angiographically Minimal luminal irregularities of the circumflex Mild nonobstructive disease of the proximal LAD as described above. ?? Diagnostic Recommendations Nonischemic cardiomyopathy. Differentials include atrial fibrillation with rapid ventricular response with underlying left bundle branch block further treatment and management per primary team. Maximize medical therapy. ?? ACC Diagnostic Recommendations: Medical therapy and/or counseling. ?? Complications:None. ?? Signatures ?? Signed By: Gaston West MD Problem List/Past Medical History Ongoing No qualifying data Procedure/Surgical History No qualifying data available. Social History Tobacco Use: Former smoker, quit more than 30 days ago. Family History No family history recorded. Note * Pee Dunn: PERFORM Event Display: Patient Education/Instruction Authored Date: [id number] Ambulatory [place] [address] Name: DANIELA LOPES : 1945?? Visit: 06/21/2024 11:25?? Ambulatory Visit Instructions ?? Your Care Team Primary Care Provider Maggi Swift MD? This Visit Provider Taylor Drew MD Your Diagnosis Heart failure Afib Vitals Signs Pulse Rate: 88 bpm Height: 171 cm Systolic Blood Pressure:??88 mm Hg??Low Weight: 58.8 kg Diastolic Blood Pressure: 62 mm Hg Body Mass Index: 20.11 kg/m2 ?? Body surface area: 1.67 What to do next Scheduled Follow-Up Appointments Thursday 12:15 PM EST ?? With: Viki MAYA, Taylor Tripathi Where: [address] [address]- Status: Pending Future Orders Creatinine - Routine, Once, 04/19/24 15:03:00 EDT, Future Order, [facility], Blood?? Basic Metabolic Panel - Routine, Once, 05/20/24 9:22:00 EST, Future Order, [facility], Blood?? Basic Metabolic Panel - Routine, Once, 05/20/24 9:23:00 EST, Future Order, [facility], Blood?? B Type Natriuretic Peptide (BNP) - Routine, Once, 05/24/24 10:42:00 EST, Future Order, [facility], Blood?? Basic Metabolic Panel - Routine, Once, 05/24/24 10:44:00 EST, Future Order, [facility], Blood?? Basic Metabolic Panel - Routine, Once, 06/21/24 12:07:00 EST, Single or Recurring Future Order, [facility], Blood?? B Type Natriuretic Peptide (NT-proBNP) - Routine, Once, 06/21/24 12:07:00 EST, Single or Recurring Future Order, [facility], Blood?? Medications The list below reflects the information in our records and provided by you today along with any changes made during this visit. Please continue your medications until treatment is completed or stopped by your provider. If this is different from the information you have or there are other questions,please contact the prescribing provider. What How Much When Instructions Unchanged Acetaminophen (Tylenol Caplet) 500 Milligram Oral Every 8 hours Unchanged apixaban (Eliquis 2.5 mg oral tablet) 1 tab(s) Oral Twice a day Unchanged Calcium And Vitamin D Combination (Calcium Plus Vitamin D3) Oral Daily with zinc ?? Unchanged Carvedilol (carvedilol 3.125 mg oral tablet) 1 tab(s) Oral Twice a day Duration: 30 Days Unchanged Cranberry Unchanged Docusate (Colace Clear) 50 Milligram Oral Twice a day as needed for as needed for constipation Unchanged Fluticasone Nasal (Flonase 50 mcg/ inh nasal spray) Daily as needed for Congestion Unchanged Letrozole (letrozole 2.5 mg oral tablet) 1 tab(s) Oral Daily Unchanged Omeprazole (omeprazole 20 mg oral delayed release tablet) 1 tab(s) Oral Daily Unchanged Ondansetron (Zofran ODT 4 mg oral tablet, disintegrating) 1 tab(s) Oral Every 8 hours as needed for as needed for nausea/vomiting Unchanged palbociclib (Ibrance 125 mg oral capsule) 1 capsule Oral Daily daily for 21 days, then off for 7 days ?? Unchanged sacubitril-valsartan (Entresto 24 mg-26 mg oral tablet) 1 tab(s) Oral Twice a day Unchanged Spironolactone (spironolactone 25 mg oral tablet) 0.5 tab(s) Oral Daily Duration: 30 Days Unchanged torsemide (torsemide 20 mg oral tablet) 1 tab(s) Oral Daily Unchanged Zoledronic Acid (Zometa IVPB) 4 Milligram Intravenous Infusion Test Performed Below is a partial list of the tests performed during your Visit. You may have had other tests and procedures not included in this list. Please discuss all test results with your provider. B Type Natriuretic Peptide (NT-proBNP)?-- Results Pending -- Basic Metabolic Panel?-- Results Pending -- BNP?-- Results Pending -- Medications and Immunizations Administered Medications Given During Visit No medications given during this visit.?? Allergies (NKA means No Known Allergies) Avelox Seasonale Topical Skin Adhesive Vantin moxifloxacin pneumococcal vaccines Common Emergency Awareness Tips IS IT A STROKE? Act FAST and Check for these signs: FACE Does the face look uneven? ARM Does one arm drift down? SPEECH Does their speech sound strange? TIME Call at any sign of stroke ?? Heart Attack Signs Chest discomfort: Most heart attacks involve discomfort in the center of the chest and lasts more than a few minutes, or goes away and comes back. It can feel like uncomfortable pressure, squeezing, fullness or pain. Discomfort in upper body: Symptoms can include pain or discomfort in one or both arms, back, neck, jaw or stomach. Shortness of breath: With or without discomfort. Other signs: Breaking out in a cold sweat, nausea, or lightheaded. Remember, MINUTES DO MATTER. If you experience any of these heart attack warning signs, call to get immediate medical attention! ?? Smoking can increase your chances of developing chronic health problems and can cause harmful effects to other family members in your house. If you smoke, you are strongly encouraged to quit. Please call [facility] at [phone] or [phone] ([phone]) or log in to [email or web address] for referrals to smoking cessation programs. ?? The National Suicide Prevention Hotline is available 26/01 if you or someone you know needs to find a reason to keep living. By calling 3-714-257-[employer] (8809) you'll be connected to a skilled, trained counselor at a crisis center in your area. [facility] Portal You can view and manage your care through the patient portal or by using a health care mando of your choosing. [employer] is a website that allows you to securely view your medical information including your hospital discharge summary, office visit summaries, medications and follow-up visits. You can also request appointments, renew medications, and request access to your medical information using a health care mando of your choosing, or just ask a question. You can enroll at [email or web address] or register during your next office visit. [facility], in keeping with [facility] guidance, no longer requires face masks for staff, patientsor visitors in most situations. Similiar to time spent indoors at other locations, there is the chance that you were exposed to repiratory viruses during your time with us (such as flu or COVID-19). If you develop symptoms concerning for a viral respiratory infection, please seek testing (and treatment if indicated) from your medical provider or home test kit. ?? Disclaimer: The information provided is of a general nature and is intended to be used in conjunction with the recommendations and advice of your health care practitioner. Every effort has been made to ensure that the information provided is accurate and complete at the time it is provided to you however, as your needs change, or, as new information becomes available, different or additional instructions may be required. ?? If you have questions, please consult with your primary care provider or pharmacist, as appropriate. This information is not intended to serve as substitution for assessment and evaluation by a qualified health care provider. If you do not have a primary care provider, you may find a [facility] provider by calling [facility] at [phone]. Patient Care team information Care Team Personnel Name: Chanelle Pardo RN Position: [facility] RN Member Role: Primary Care Nurse Name: Angela Caraballo RN Position: [facility] RN Member Role: Primary Care Nurse Name: Yanira Erwin RN Position: [facility] RN Member Role: Primary Care Nurse Name: Anika Pittman RN Position: [facility] RN Member Role: Primary Care Nurse Name: Jasmin Dennis RN Position: [facility] RN Member Role: Primary Care Nurse Name: Jaylon Montana RN Position: [facility] RN Member Role: Primary Care Nurse Name: Maggi Swift MD Position: [facility] Outreach Member Role: PCP Address: [address] [place] [address] [address] Telecom: Name: Renetta Barry RN Position: [facility] RN Supv Member Role: Primary Care Nurse Name: Reena Laws RN Position: [facility] RN Member Role: Primary Care Nurse Name: Mel Duncan RN Position: [facility] RN Member Role: Primary Care Nurse Name: Jeffrey Guerin RN Position: S RN Member Role: Primary Care Nurse Name: Gokul Rodney RN Position: [facility] RN Member Role: Primary Care Nurse Name: Adriana Guevara RN Position: [facility] RN Member Role: Primary Care Nurse Name: Quentin Stout RN Position: [facility] RN Member Role: Primary Care Nurse Name: Daniela Vickers RN Position: [facility] RN Member Role: Primary Care Nurse Name: Sofia Hernandez RN Position: [facility] RN Member Role: Primary Care Nurse Name: Hilda SINGER, Cari Lundy Position: [facility] Outreach Member Role: [employer] Consulting Physician Address: [address] [place] [address] [address] Telecom: Care Team Related Persons Name: SADA LOPES Name: JEFFREY LOPES Name: LAILA LOPES Insurance Providers Guarantor name: DANIELA LOPES Health Plan Information #: 1 Payer: MEDICARE PART B OUTPT Member Number: [id number] Policy Number: NA Group Number: NA Health Plan Information #: 2 Payer: [facility] [facility] Member Number: [id number] Policy Number: NA Group Number: [id number]
--- OUTSIDE RECORDS SUMMARY | 2024-07-28 14:19 | XMS_ITS | Encounter Summary ---
Author Organization [facility] Address [address] [place] [address] Care Team Providers Care Glue Clamp Operator Name Role Phone Maggi Swift MD Primary Care Provider [phone] Encounter Details Date Type Department Care Team (Late st Contact Info) Description 04/20/2024 11:30 AM EDT Hospital Encounter TH HISTORIC ENCOUNTERS EASTERN CONVERSION ONLY Cricket Huntley MD [address] [place] [address] Social History Tobacco Use Types [...] on file documented as of this encounter Plan of Treatment Upcoming Encounters Date Type Department Care Team (Late st Contact Info) Description 08/29/2024 11:15 AM EST Office Visit [facility] Hematology Oncology [address] [place] [address] Cricket Huntley MD [address] [place] [address] documented as of this encounter Visit Diagnoses Not on filedocumented in this encounter Care Teams Glue Clamp Operator Relationship Specialty Start Date End Date Maggi Swift MD [address] [facility] [address] [address] PCP - General Internal Medicine 12/05/21 documented as of this encounter
--- OUTSIDE RECORDS SUMMARY | 2024-07-28 14:19 | XMS_ITS | Encounter Summary ---
Author Organization [facility] Address [address] [place] [address] Care Team Providers Care Bobbin Painter Name Role Phone Maggi Swift MD Primary Care Provider [phone] Encounter Details Date Type Department Care Team (Late Contact Info) Description 06/07/2024 Lab Requisition [facility] - Main Lab [address] [facility] [place] [phone] Allison Munson NP [address] [facility] [address] [place] [address] Other abnormal findings on microbiological examination of urine Social History Tobacco Use Types Packs/Day Years [...] Encounters Date Type Department Care Team (Late Contact Info) Description 08/29/2024 11:15 AM EST Office Visit [facility] Hematology Oncology [address] [place] [phone] Cricket Huntley MD [address] [place] [phone] documented as of this encounter Procedures Procedure Name Priority Date/Time Associated Diagnosis Comments BACTERIAL IDENTIFICATION AND SUSCEPTIBILITY, AEROBIC Routine 06/06/2024 12:00 AM EST Other abnormal findings on microbiological examination of urine documented in this encounter Results * (ABNORMAL) Bacterial identification and susceptibility, aerobic (06/06/2024 12:00 AM EST) Culture, Bacterial ID and Sensitivity Klebsiella pneumoniae ssp pneumoniae(A) JHONY 06/08/2024 8:15 AM EST [facility] Comment: This is an edited [...] Trimethoprim/Sulfamethoxazo le JHONY <=20 ug/ml: Susceptible Allison A Arpit ICER MACHINE OPERATOR LAB MICROBIOLOGY - GENERAL ORDERABLES [facility] [address] [place] [address], documented in this encounter Visit Diagnoses Diagnosis Other abnormal findings on microbiological examination of urine documented in this encounter Care Teams Bobbin Painter Relationship Specialty Start Date End Date Maggi Swift MD [address] [place] [address] PCP - General Internal Medicine 12/05/21 documented as of this encounter
--- OUTSIDE RECORDS SUMMARY | 2024-07-28 14:19 | XMS_ITS | Encounter Summary ---
Author Organization [facility] Address [address] [place] [id number] Care Team Providers Care Job Printer Name Role Phone aMggi Swift MD Primary Care Provider [phone] Encounter Details Date Type Department Care Team Description 01/14/2021 Nurse Triage [facility] Oncology Services [address] [place] [address] Yomi Morris RN Social History Tobacco Use Types Packs/Day Years Used Date Smoking Tobacco: Never Assessed Sex and Gender Information Value Date Recorded Sex Assigned at Not on file Gender Identity Not on file Sexual Orientation Not on file Job Start Date Occupation Industry Not on file Not on file Not on file COVID-19 Exposure Response Date Recorded In the last month, have you been in contact with someone who was confirmed or suspected to have Coronavirus / COVID-19? No / Unsure 01/10/2021 11:33 AM EDT documented as of this encounter Progress Notes * Yomi Morris RN - 01/14/2021 1:01 PM EDT At 9:09 this morning Ms. Woods called the office to report low back and left hip pain at 10/10 level. She also report issues with incontinence and foul smelling urine. She was seen by Dr. Huntley on Thursday01/11/21 and her pain was better since starting Flexaril. After that appointment her pain worsened and over the weekend she has been unable to get off the couch. After a long discussion she will come to the ER via EMS. documented in this encounter Plan of Treatment Not on file documented as of this encounter Visit Diagnoses Not on filedocumented in this encounter Care Teams Job Printer Relationship Specialty Start Date End Date Maggi Swift MD [address] [facility] [address] [place] [address] PCP - General Internal Medicine 02/24/22 documented as of this encounter
--- OUTSIDE RECORDS SUMMARY | 2024-07-28 14:19 | XMS_ITS | Encounter Summary ---
Author Organization [facility] Address [address] [place] [address] Care Team Providers Care Booking Officer Name Role Phone Maggi Swift MD Primary Care Provider [phone] Reason for Visit * Reason Comments Follow-up Encounter Details Date Type Department Care Team (Late st Contact Info) Description 07/20/2024 3:15 PM EST Office Visit [facility] Hematology Oncology [address] [place] [phone] Cricket Huntley MD [address] [place] [phone] Malignant neoplasm of overlapping sites of right breast in female, estrogen receptor positive (CMS/HCC) (Primary Dx); Malignant neoplasm of upper-inner quadrant of left breast in female, 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); Malignant neoplasm metastatic to bone (CMS/HCC) Social History Tobacco Use Types Packs/Day Years [...] on file documented as of this encounter Last Filed Vital Signs Vital Sign Reading [...] Mass Index 20.52 07/20/2024 3:17 PM EST documented in this encounter Progress Notes * Cricket Huntley MD - 07/20/2024 3:15 PM EST Diagnosis/treatment: #1 Metastatic breast cancer with bone metastases, ER/CO-positive, [id number], diagnosed in 01/2019. She started palliative radiation to the lower thoracic and upper lumbar spine on 02/10/2019 and completed radiation on 02/22/2019. She started Taxol/Herceptin/Perjeta on 03/09/2019, which was discont inued on 05/19/2019 when the HER-2 FISH results became available. She started Ibrance/letrozole in mid-05/2019. She receives Zometa. #2 Left-sided stage I T1bN0 invasive ductal breast cancer, ER/CO/Her2-negative, diagnosed in 05/2015. The patient underwent lumpectomy. She started adjuvant chemotherapy with TC (Taxotere at 60 mg/m2) on 07/17/2015 and completed 4 cycles. She received Neulasta support. She completed radiation. #3 Right-sided stage III T3N1 invasive breast cancer, ER/CO-positive/Her2-negative, diagnosed in 2005. She was underwent MRM and chest wall radiation. She completed adjuvant chemotherapy with dose dense AC, followed by Taxol. She completed adjuvant Arimidex for 5 years. Interval history: The patient is a 79 yo F who presented in early 2005 with an alteration in the shape of her right breast, followed by retraction of the nipple. A biopsy showed an invasive carcinoma, ER/CO-positive, [id number]. On 12/30/2005, she underwent a MRM which revealed a 9.5 cm infiltrating ductal and lobular carcinoma. Two of 14 nodes were involved. She completed dose dense AC x 4, followed by Taxol x4. She completed post-mastectomy radiation. She reports residual neuropathic symptoms in her feet, which feel cold to touch. She tolerated Arimidex reasonably well with infrequent hot flashes, insomnia, leg cramps, and hair thinning. A DEXA scan in 01/2014 showed osteopenia with a T score of -2.0 in the L spine. A DEXA scan in 06/2018 showed osteoporosis with a T score of -2.5 in the L-spine. A DEXA scan in 06/2020 showed osteopenia with a T score of -2.1 in the femur. She takes calcium and vitamin D supplementation. She receives Zometa. She is compliant with self exams and reports no concerns. She is compliant with MMGs and her last left MMG in 06/2017 was read as benign. A left MMG in late 04/2015 showed a small area of architectural distortion in the medial left breast. An US showed an irregular focus of shadowing at 10:00 in the left breast. She underwent a core biopsy of the left breast lesion on 05/16/2015 and the pathology showed an invasive ductal breast cancer, ER/CO/Her2-negative (2+ focally by IHC; FISH negative). She underwent an excisional biopsy and sentinel node biopsy on 06/08/[address] San and the pathology revealed a 1.0 cm grade 1 invasive ductal carcinoma, ER/CO/Her2-negative (the lumpectomy specimen was stained in addition to the core biopsy). LVI was not present. Zero of 1 sentinel nodes wereinvolved with tumor. She tolerated TC chemotherapy well. She had mild fatigue x 2 weeks during week 1 and 2. She has hadtaste changes during weeks 1 and 2. She had intermittent mild nausea x 2 days during week 1, relieved by Zofran. She had had abdominal bloating for 2-3 days during week 1. She had constipation x 2-3 days during week 1, followed by loose stools during weeks 2 and 3. She developed tolerable muscle cramps in her legs during cycle 3 and 4, which are resolving. She developed mild paresthesias in her fingertips during cycle 1, which lasted 2-3 days during week 1, but none during cycles 2-4. She has had mild worsening in the chronic paresthesias in her feet, right greater than left, which persist. She reported urinary frequency, voiding every 2 hours, following cycle 4, which resolved. She denies dysuria or hematuria. A UA was unremarkable. She reported left posterior and lateral knee pain since cycle 4, which worsened in early 11/2015. She denied trauma. She denies left knee swelling or erythema. She took ASA 325 mg on 11/08/2015 and the pain lessened on 11/09/2015. The left knee pain has resolved. She completed radiation. She reported a mild lower back ache which started in early 2016 and worsened in the spring of 2016.A bone scan in mid-11/2016 was unremarkable. The pain resolved. She reports intermittent mild neck discomfort and stiffness since 11/2017, exacerbated by activity, which has not progressed over the last interval. She developed bilateral lower back pack in 06/2018 following lifting heavy objects. The pain initially resolved, but she had recurrent intermittent bilateral lower back pain. A lumbar spine plain film on 09/16/2018 showed severe DJD and was otherwise unremarkable. She had recurrent left lower back pain starting in early 01/2019. Her PCP assessed left paraspinal muscle spasm. A bone scan on 02/01/2019 showed widespread osteoblastic metastases including in the skull, bilateral ribs, T-spine, and L-spine. She had progressive bilateral lower back pain which became severe in early 02/2018. A CA 27.29 on 02/04/2019 was 296. A C/A/P CT with IV and oral contrast on 02/08/2019 showed multifocal bony metastatic disease, including lesions in the left humerus, bilateral scapulae, sternum, ribs, T-spine, L-spine, sacrum, and bilateral pelvic regions. There was significant central canal stenosis at the thoracolumbar junction. An MRI of the T-spine 02/09/2019 showed multifocal vertebral metastases. There was severe central stenosis at T11 and T12. There was mild a mild T12 compression fracture resulting in mass effect on the thoracic spinal cord. She was admitted to [facility] on 02/11/2019 and started on high-dose dexamethasone. She started to the palliative radiation to the lower thoracic and lumbar lumbar spine on 02/10/2019 and completed treatment on 02/22/2019. The bilateral lower back pain resolved following radiation. She taperedoff the dexamethasone. She underwent a biopsy of an L4 vertebral lesion on 02/17/2019 and the pathology showed a metastatic breast carcinoma, ER/CO-positive, HER-2 positive (3+ by IHC as interpreted at [facility]), GATA3-positive, mammaglobin-positive, and Ki-67-low. A pathology review at [facility] assessed the HER-2 on theMercy stains as 2+. A repeat IHC study at [facility] showed [id number] (1+.) A Her-2 FISH at [facility] was negative.. She reported left gluteal pain starting in mid-02/2019. She reported a decrease in left hearing acuity starting in early 03/2019. Her PCP assessed congestion. She was prescribed Flonase. The left hearing has improved.. She denies headaches or visual changes. An echocardiogram in late 02/2019 showed a normal LVEF. She tolerated Taxol/Herceptin/Perjeta reasonably well. She reports mild fatigue and mild generalized weakness. She developed a small right tongue sore during week 4, which resolved. She reports mild nausea, relieved by ondansetron. She reports mild GERD symptoms, relieved by Prilosec. She reports diarrhea, 1 to 2 stools per day. She developed an intermittent mild facial rash. She developed a painful left lower back rash in the radiation field, which is lessening with time away from radiation. The pain is relieved by Tylenol as needed. She developed intermittent paresthesias in her fingertips.The paresthesias in her feet are unchanged on therapy. A CA 27.29 was 194 on 04/07/2019. A CA 27.29 was 138 on 05/05/2019. She is tolerating Ibrance/letrozole reasonably well. She reports mild to moderate fatigue. She reports occasional hot flashes. She reports transient mouth sores, which were more severe for 2-3 weeks during therapy in 02/2020 and during 04/2020.. She takes Miracle Mouthwash with transient relief. Shereports Tylenol 500 mg provides partial relief. She reports intermittent mild bilateral shoulder and mild bilateral hip arthralgias. She reports a scattered infrequent pruritic papular rash, relievedwith cortisone cream. A DEXA scan 07/17/2022 showed osteopenia with a T score of -2.3 in the femur. She had been receiving Zometa. The Zometa has been on hold since 09/2022 due to dental issues. She und erwent gum grafting in the region of the a lower incisor on 01/23/2023. She takes calcium and vitamin D supplementation. An ANC was 1.4 on 04/11/2024. A CA 27.29 was 119 on 06/08/2019. A CA 27.29 was 45 on 07/11/2019. A CA 27.29 was 63 on 08/15/2019. A CA 27.29 was 64 on 09/01/2019. The left gluteal pain resolved. She reported intermittent left lower paraspinal pain starting in early 05/2019, which resolved. An L-spine x-ray on 07/25/2019 showed an L1 compression fracture (new compared to the previous 02/2019 MRI) She had persistent mild lumbar back pain, relieved by Tylenol 1000 mg twice daily. She developed intermittent right flank pain in early 2019, worse in the morning and relieved with ambulation, which lessened in 09/2019. She developed right iliac pain, radiating to the right groin, in early 09/2019, initially relieved by Tylenol 1000 milligrams twice daily which worsened in early 10/2019, no longer relieved by Tylenol.She took oxycodone 5 mg, about 2 pills/day, with partial relief.. A C/A/P CT on 09/05/2019 with oral and IV contrast showed progressive disease in the lumbar spine andpelvis, with new T12, L1, and L2 compression fractures (compared to the 02/2019 CT.) A bone scan on 09/05/2019 showed new uptake in the upper cervical spine, sternum, bilateral ribs, andsacrum (compared to the 01/2019 bone scan.) A CA 27.29 was 67.2 on 10/03/2019. A thoracolumbar spine MRI on 10/22/2019 showed multifocal metastatic bone disease with a mild compression deformity at T12 with mild canal narrowing, decreased from the previous MRI, and a new L1 compression fracture with fracture cleft formation with mild canal narrowing. A C/A/P CT on 10/31/2019 showed stable bone metastases. A bone scan on 10/31/2019 showed stable findings. A CA 27.29 on 10/31/2019 was stable at 54.7. A PET/CT on 11/17/2019 showed uptake in widespread bone metastases, including in the L5 vertebra andthe right sacrum. She received radiation to 800 cGy in 1 fraction to L3 and to the upper sacrum on 12/02/2019. She reports resolution of the right iliac pain. She has persistent mild lumbar back pain. She reports new left posterior pelvic pain since mid-01/2020, which has lessened since late 2019.. She takes ibuprofen/acetaminophen 1 pill twice daily with near complete relief. A C/A/P CT on 01/23/2020 showed stable bone metastases. A bone scan on 01/23/2020 showed stable findings. A CA 27.29 on 02/20/2020 was normal at 31.9. A CA 27.29 on 04/16/2020 was normal at 28.3. A C/A/P CT on 04/16/2020 showed stable bone metastases. A bone scan on 04/19/2020 showed stable findings. A CA 27.29 on 05/24/2020 was 28.0. A CA 27.29 on 07/09/2020 was 30.2. A C/A/P CT on 07/09/2020 showed stable findings. A bone scan on 07/09/2020 showed stable findings. A CA 27.29 on 09/24/2020 was 29.5. A CA 27.29 on 11/08/2020 was 32.0. A C/A/P CT on 11/12/2020 showed stable findings. A bone scan on 11/12/2020 showed stable findings. A CA 27.29 on 12/19/2020 was 40.0. She developed severe lumbar back pain following a car ride over the January 06 weekend. She tried oxycodone 5 mg with only partial relief. A bone scan on 01/09/2021 showed stable findings. A C/A/P CT with IV and oral contrast on 01/09/2021 showed stable findings. She developed worsening lumbar back pain in mid-01/2021, followed by the development of urinary incontinence on 01/14/2021. He presented to the [facility] ER on 01/14/2021. A urine culture on 01/14/2021 grew E. coli, broadly sensitive. A lumbar sacral spine MRI on 01/14/2021 showed severe central canal narrowing at L1 with increased mass-effect on the spinal cord suggestive of a component of cord compression due to bone fragment and posterior disc bulging. She was evaluated by neurosurgery who recommended rehabilitation. She was placed on a dexamethasone taper. The urinary incontinence resolved with treatment of the UTI. She completed a course of cephalexin. She reports markedly lessened lumbar back pain with treatment of the UTI. She takes Tylenol as needed with relief. She developed worsening lumbar back pain in mid 04/2021. She presented to the [facility] ER on 04/19/2021. An A/P CT with IV and oral contrast on 04/19/2021 showed chronic T12, L1, and L2 compression fractures with multilevel DJD and scoliosis, stable compared with previous CTs. An L-spine MRI with contrast on 04/22/2021 showed stable chronic pathologic compression fractures at T12, L1, and L2 with severe central canal stenosis and mild cord compression at L1-L2 and L2-L3. There was degenerative disc disease with right L3 nerve root and bilateral L4 nerve root compression. She was started on fentanyl 25 mcg and Tylenol 1000 mg 3 times daily, which provided near complete relief of the lumbar backpain. She developed atrial fibrillation with rapid ventricular response as an inpatient. She received doses of IV Cardizem and was discharged on oral Cardizem. She was started on Eliquis. She developed a UTI as an inpatient and received ceftriaxone IV x3 days. She reports gradually worsening left hip pain in the fall 2020. A left hip film on 05/09/2021 showeda 0.7 cm sclerotic metastasis in the proximal left femur and an unremarkable left hip. A CA 27.29 on 06/13/2021 was 34.7. A bone scan 07/29/2021 showed stable findings. A C/A/P CT with IV and without oral contrast on 07/29/2021 showed stable findings. A CA 27.29 on 10/04/2021 was 33.5. A bone scan on 10/07/2021 showed stable findings. A C/A/P CT with IV and oral contrast on 10/07/2021 showed stable findings. A CA 27.29 on 01/03/2022 was 34.6. A bone scan on 01/07/2022 showed stable findings. A C/A/P CT with IV and oral contrast on 01/07/2022 showed stable findings. A CA 27.29 on 04/01/2022 was 32.6. A bone scan on 04/08/2022 showed stable findings. A C/A/P CT with IV and oral contrast on 04/08/2022 showed stable findings. A CA 27.29 05/19/2022 was 45.2. A CA 27.29 on 07/01/2022 was 35.0. A bone scan on 07/01/2022 showed stable findings. A C/A/P CT with IV and oral contrast on 07/01/2022 showed stable findings. A left mammogram on 07/17/2022 was read as benign. A CA 27.29 on 08/11/2022 was 50.6. A CA 27.29 on 09/22/2022 was 47.1. A bone scan on 09/22/2022 showed stable findings. A C/A/P CT with IV and oral contrast on 09/22/2022 showed stable findings. A left shoulder x-ray on 09/23/2022 showed severe glenohumeral osteoarthritis and no evidence of metastatic disease. A CA 27.29 on 11/04/2022 was 46.8. A bone scan on 12/11/2022 showed stable findings. A C/A/P CT with IV and oral contrast on 12/11/2022 showed stable findings. A CA 27.29 on 12/23/2022 was 60.1. She was diagnosed with a Klebsiella UTI in 02/2023. She completed a course of antibiotics and the symptoms resolved. A CA 27.29 on 03/04/2023 was 63.0. A bone scan on 03/04/2023 showed stable findings. A C/A/P CT with IV and oral contrast on 03/04/2023 showed stable findings. A CA 27.29 on 04/28/2023 was 49.8. A CA 27.29 on 06/03/2023 was 62.8. A bone scan on 06/03/2023 showed stable findings. A C/A/P CT with IV and oral contrast on 06/03/2023 showed stable findings. A CA 27.29 on 07/10/2023 was 66.6. A bilateral screening mammogram on 07/22/2023 at [facility] showed progressing calcifications in the left breast. A diagnostic mammogram on 08/05/2023 confirmed the findings. She underwent a stereotactic core biopsy on 09/02/2023 and the mammogram on that day revealed a 4.1 x 2.2 x 2.7 cm target lesion and the pathology revealed a grade 2 DCIS, micropapillary and cribriform type, ER/CO- negative and a focus of microinvasion. She underwent a left simple mastectomy on 10/05/[address] Gaspar at [facility] the pathology revealed a 3.5 cm grade 2 DCIS with necrosis and calcifications. Margins were adequate. She developed a bronchitis in early 08/2023. She completed a Z-Ag with resolution of symptoms. A CA 27.29 on 08/17/2023 was 61.0. A bone scan on 08/17/2023 showed stable findings. A C/A/P CT with IV and without oral contrast on 08/17/2023 showed stable findings. A CA 27.9 on 11/02/2023 was 67.9. A bone scan on 11/02/2023 showed stable findings. A C/A/P CT with IV and without oral contrast on 11/02/2023 showed stable findings. She developed a UTI in late 11/2023. She completed a course of Bactrim and the symptoms resolved. A CA 27.29 on 12/15/2023 was 72.0. A CA 27.29 on 01/19/2024 was 79.3. A bone scan on 01/22/2024 showed stable findings. A C/A/P CT with IV and without oral contrast on 01/22/2024 showed stable findings. She presented to the [facility] ER on 02/08/2024 with dyspnea on exertion x 1 week. A chest CTA showed no PE and increased interstitial markings, consistent with pulmonary edema. There was right upper lobe consolidation and mild bilateral pleural effusions. There were multiple sclerotic lesions noted throughout the skeleton. She had atrial fibrillation with a rapid ventricular response. An echocardiogram showed marked systolic dysfunction with an LVEF 20-25% with global hypokinesis. A cardiac catheterization showed no significant coronary artery disease. She was aggressively diuresed and her symptoms resolved. She was started on Entresto 24 mg / 26 mg twice daily and Lasix 20 mg daily as neededfor weight gain. The metoprolol was increased to 50 mg XR. A CA 27.29 on 03/01/2024 was 93.0. An echocardiogram on 04/01/2024 showed an LVEF of 35-40%. A CA 27.29 on 04/11/2024 was 102.9. A bone scan on 04/11/2024 showed stable disease. A C/A/P CT with IV and without oral contrast on 04/11/2024 showed interval development of thickeningof the interlobular septa and a new moderate to large right pleural effusion and a small left pleural effusion. There was no comparison of the bony metastases to the prior CT. She presented to the [facility] ER on 04/29/2024 with worsening dyspnea on exertion and worsening bilateral lower extremity edema. A chest x-ray on 04/29/2024 was consistent with fluid overload. A chest CTA showed no evidence of pulmonary embolism and a stable consolidative opacity at the right lung apex, likely posttreatment changes, and unchanged mildly loculated moderate to large right and slightly decreased moderate left pleural effusions. She underwent a thoracentesis on 05/03/2024 and with 1000 mL were drained and cytology showed rare atypical cells. Her cardiac regimen was modified and Coreg was discontinued and torsemide 20 mg daily and spironolactone 12.5 mg daily were started. She denies dyspnea on exertion. She reports lessened bilateral leg edema. A CA 27.29 on 05/24/2024 was 113.5. A CA 27.29 on 07/12/2024 was 169.8. A bone scan on 07/14/2024 showed stable disease. A C/A/P CT with IV and without oral contrast on 07/14/2024 showed resolution of interval lobular septal thickening and resolution of bilateral pleural effusions and stable bone metastases. She reports persistent left shoulder and left lower back pain. She was previously on fentanyl 12 mcg, but self-discontinued the fentanyl. She remains on Tylenol 1000 mg 1-3 times daily which providesnear complete relief. She denies cough or MCCOY, abdominal or bone pain, or a change in appetite or weight. . . Given her history of bilateral breast cancer, Dr. San sent a hereditary gene mutation panel, which revealed no relevant mutations. 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 Review of systems: The remainder of a 10 point review of systems was unremarkable. HEENT: Sclerae anicteric, normal oropharyngeal membrane. Neck: No lymphadenopathy. Lungs: Clear to auscultation. Heart: No murmurs. Breasts: S/P right mastectomy, no suspicious skin changes, nodules, or masses bilaterally, no axillary lymphadenopathy bilaterally. Abdomen: Soft, nontender, no organomegaly or masses. Extremities: 1+ bilateral lower leg edema. Skin: Scattered infrequent papular rash. Neurologic: Normal gait. Clinical summary: The patient is a 79 yo F who presented in 2005 with a right-sided stage III invasive breast cancer,ER/CO-positive/Her2-negative. The patient was treated with MRM and chest wall radiation. She completed adjuvant chemotherapy with dose dense AC, followed by Taxol. She started adjuvant Arimidex in 06/2006 and completed the planned 5 years of therapy. She presented in 05/2015 with a left-sided stage I T1cN0 invasive ductal breast cancer, ER/CO/Her2-negative. We will refer her to a radiation oncologist for adjuvant radiation. I recommended adjuvantchemotherapy with TC x 4 cycles due to the triple-negative phenotype and the higher risk of distantrecurrence. We employed a 20% dose reduction in the Taxotere to 60 mg/m2 due to anticipated toxicities. She tolerated TC chemotherapy well despite mild systemic and GI side effects. She had tolerable muscle cramps during cycle 3 and 4. She had mild worsening of neuropathic symptoms in her distal feet following cycle 3, which persisted. She completed radiation. She reported a mild lower back ache which started in early 2016. A bone scan was unremarkable. The pain resolved. She reports intermittent mild neck discomfort and stiffness starting in 11/2017, exacerbated by activity, which has not progressed over the last interval and which is not supicious for a neoplastic process. She had intermittent bilateral lower back pain since 06/2018. She develops severe bilateral low back pain by early 02/2019 She presented in 02/2019 with a metastatic breast cancer with bone metastases, ER/CO-positive, [id number]. A bone scan in 01/2019 showed widespread bone metastases. CT study showed widespread bone metastaseswith severe central canal stenosis at the thoracolumbar junction. A T-spine MRI showed a T11 compression fracture with mass effect on the thoracic cord. She completed palliative radiation to the lower thoracic and upper lumbar spine and the pain resolved. She tapered off the dexamethasone. She developed left gluteal pain in mid-02/2019, possibly related to pelvic metastases. We started systemic therapy with Taxol/Herceptin/Perjeta based on the [facility] pathology assessment [id number] disease. We planned for a 12 week course of Taxol. I discussed potential adverse effects of Taxol, including fatigue, reversible hair loss, nausea, constipation, diarrhea, worsening peripheral neuropathy, cytopenias, and infection. I discussed potential adverse effects of Herceptin/Perjeta, including diarrhea and a reversible cardiomyopathy. She tolerated Taxol/Herceptin/Perjeta reasonably well despite mild systemic, GI, skin, and peripheral neuropathic toxicities. She developed a painful radiation recall rash in her mid-back, which is lessening with time away from radiation. She applies Aquaphor. She takes Tylenol as needed with relief. She developed intermittent neuropathic symptoms in her fingertips. The back pain issues have lessened following radiation and on ongoing chemotherapy. The left gluteal pain lessened. She reports intermittent left lower paraspinal pain since early 05/2019, which we will monitor.. She takes Tylenol 2 pills as needed with partial relief and oxycodone 5 mg as needed with relief. As the HER-2 FISH showed no overexpression, we switched to Ibrance/letrozole. I discussed potentialadverse effects, including fatigue, hot flashes, nausea, diarrhea, arthralgias, rash, cytopenias, and loss of bone density. She is tolerating Ibrance/letrozole reasonably well. She reports mild fatigue. She reports occasional hot flashes. She reports transient mouth sores, which were more severe and lasted 2-3 weeks during 02/2020 and during 04/2020. She takes Miracle Mouthwash with transient relief. I prescribed a new Miracle Mouthwash preparation with hydrocortisone added. She takes Tylenol 500 mg, which provides partial relief. She reports mild arthralgias. She reports a scattered infrequent pruritic papular rash,relieved by cortisone. We will consider a dose reduction in the Ibrance if the severe mouth sores become recurrent. She has osteopenia. The Zometa has been on hold since 09/2022 due to dental issues. She underwent gum grafting in the region of the a lower incisor on 01/23/2023. She takes calcium and vitamin D supplementation. Will restart Zometa. She has persistent mild lumbar back pain, relieved by Tylenol 2 pills once a day. She developed right flank pain in early 2019, which lessened. She developed right iliac pain, radiating to the right groin, in early 09/2019, initially relieved by Tylenol 1000 milligrams twice daily which worsened in early 10/2019, no longer relieved by Tylenol.She took oxycodone 5 mg, about 2 pills/day, with partial relief. A restaging CT in early 09/2019 showed progressive disease in the lumbar spine and pelvis and new compression fractures in T12, L1, and L2 (compared to the 02/2019 CT.) A restaging bone scan in early 09/2019 showed new uptake in the upper cervical spine, sternum, bilateral ribs, and sacrum. We continued Ibrance/letrozole. The tumor marker normalized on therapy. Restaging CTs and a bone scan in late 10/2019, in late 01/2020, in mid-04/2020, in early 07/2020, and in early 11/2020 showed stable disease. She received radiation to 800 cGy in 1 fraction to L3 to the upper sacrum on 12/02/2019. She reported resolution of the right iliac pain. She reports persistent mild lumbar back pain. She reports new left posterior pelvic pain since mid, lessened in late 2019. She takes ibuprofen/acetaminophen 2 pills once to twice twice daily with near complete relief.. The tumor marker sada slightly in 12/2020. She developed severe lumbar back pain following a car ride over the January 06 weekend, possibly an exacerbation of lumbar DJD. Oxycodone 5 mg offers only partial relief. I prescribed Flexeril as needed. Restaging CTs and a bone scan in early 01/2021 showed stable findings. We will consider Xeloda upon progression. She developed worsening lumbar back pain in mid-01/2021, followed by the development of urinary incontinence on 01/14/2021. He presented to the [facility] ER on 01/14/2021. A urine culture on 01/14/2021 grew E. coli, broadly sensitive. A lumbar sacral spine MRI on 01/14/2021 showed severe central canal narrowing at L1 with increased mass-effect on the spinal cord suggestive of a component of cord compression due to bone fragment and posterior disc bulging. She was evaluated by neurosurgery who recommended rehabilitation. She was placed on a dexamethasone taper. The urinary incontinence resolved with treatment of the UTI. She completed a course of cephalexin. She reports markedly lessened lumbar back pain with treatment of the UTI. She takes Tylenol as needed with relief. She developed worsening lumbar back pain in mid 04/2021. She presented to the [facility] ER on 04/19/2021. An A/P CT with IV and oral contrast on 04/19/2021 showed chronic T12, L1, and L2 compression fractures with multilevel DJD and scoliosis, stable compared with previous CTs. An L-spine MRI with contrast on 04/22/2021 showed stable chronic pathologic compression fractures at T12, L1, and L2 with severe central canal stenosis and mild cord compression at L1-L2 and L2-L3. There was degenerative disc disease with right L3 nerve root and bilateral L4 nerve root compression. She was started on fentanyl 25 mcg and Tylenol 1000 mg 3 times daily, which provided near complete relief of the lumbar backpain. She developed atrial fibrillation with rapid ventricular response as an inpatient. She received doses of IV Cardizem and was discharged on oral Cardizem. She was started on Eliquis. She developed a UTI as an inpatient and received ceftriaxone IV x3 days. She reports gradually worsening left hip pain in the fall 2020. A left hip x-ray showed unremarkable left hip joint and a small proximal femoral sclerotic metastasis. Restaging CTs and a bone scan in late 07/2021 showed stable findings. Restaging CTs and a bone scan in early 10/2021 showed stable findings. Restaging CTs and a bone scan in early 01/2022 showed stable findings. Restaging CTs and a bone scan early 04/2022 showed stable findings. Restaging CTs and a bone scan in late 06/2022 showed stable findings. Restaging CTs and a bone scan in mid-09/2022 showed stable findings. Restaging CTs and a bone scan in early 12/2022 showed stable findings. Restaging CTs and a bone scan in late 02/2023 showed stable findings. Restaging CTs and a bone scan in late 05/2023 showed stable findings. A bilateral screening mammogram on 07/22/2023 at [facility] showed progressing calcifications in the left breast. A diagnostic mammogram on 08/05/2023 confirmed the findings. She underwent a stereotactic core biopsy on 09/02/2023 and the mammogram on that day revealed a 4.1 x 2.2 x 2.7 cm target lesion and the pathology revealed a grade 2 DCIS, micropapillary and cribriform type, ER/CO- negative and a focus of microinvasion. She underwent a left simple mastectomy on 10/05/[address] Gaspar at [facility] the pathology revealed a 3.5 cm grade 2 DCIS with necrosis and calcifications. Margins were adequate. Restaging CTs and a bone scan in mid-08/2023 showed stable findings. Restaging CTs and a bone scan in late 10/2023 showed stable findings. Restaging CTs and a bone scan in late 01/2024 showed stable findings. She presented in early 02/2024 with congestive heart failure, likely a late toxicity of prior anthracycline chemotherapy. A chest CTA showed no PE and increased interstitial markings, consistent with pulmonary edema. There was right upper lobe consolidation and mild bilateral pleural effusions. There were multiple sclerotic lesions noted throughout the skeleton. She had atrial fibrillation with a rapid ventricular response. An echocardiogram showed marked systolic dysfunction with an LVEF 20-25%with global hypokinesis. A cardiac catheterization showed no significant coronary artery disease. She was aggressively diuresed and her symptoms resolved. She was started on Entresto 24 mg / 26 mg twice daily and Lasix 20 mg daily as needed for weight gain. The metoprolol was increased to 50 mg XR. An echocardiogram on 04/01/2024 showed an LVEF of 35-40%. A bone scan in early 04/2024 showed stable findings. A C/A/P CT with IV and without oral contrast on 04/11/2024 showed interval development of thickeningof the interlobular septa and a new moderate to large right pleural effusion and a small left pleural effusion, likely due to CHF. There was no comparison of the bony metastases to the prior CT. She presented to the [facility] ER on 04/29/2024 with worsening dyspnea on exertion and worsening bilateral lower extremity edema. A chest x-ray on 04/29/2024 was consistent with fluid overload. A chest CTA showed no evidence of pulmonary embolism and a stable consolidative opacity at the right lung apex, likely posttreatment changes, and unchanged mildly loculated moderate to large right and slightly decreased moderate left pleural effusions. She underwent a thoracentesis on 05/03/2024 and with 1000 mL were drained and cytology showed rare atypical cells. Her cardiac regimen was modified and Coreg was discontinued and torsemide 20 mg daily and spironolactone 12.5 mg daily were started. She denies dyspnea on exertion. She reports lessened bilateral leg edema. A bone scan on 07/14/2024 showed stable disease. A C/A/P CT with IV and without oral contrast on 07/14/2024 showed resolution of interval lobular septal thickening and resolution of bilateral pleural effusions and stable bone metastases. She reports persistent left shoulder and left lower back pain. She was previously on fentanyl 12 mcg, but self-discontinued the fentanyl. She remains on Tylenol 1000 mg 1-3 times daily which providesnear complete relief. Given her history of bilateral breast cancer, Dr. San sent a hereditary gene mutation panel, which revealed no relevant mutations. Visit summary: The patient is an 79-year-old female who is followed in our clinic for a metastatic breast cancer, hormone receptor-positive, HER2-negative. She continues on Ibrance and letrozole. She is tolerating Ibrance and letrozole reasonably well despite occasional hot flashes, occasional mouth sores, and int ermittent rash controlled with a steroid cream. Bone scans and CTs every 3 months have shown stabledisease. She has a history of osteopenia. She remains on calcium and vitamin D supplementation. Cassy had been on hold due to dental work in early 2022. We will restart the Zometa. I spent 45 minutes during this visit, reviewing imaging studies, reviewing lab work, performing a history and physical, writing education and counseling, and answering numerous questions. documented in this encounter Plan of Treatment Upcoming Encounters Date Type Department Care Team (Late st Contact Info) Description 08/29/2024 11:15 AM EST Office Visit [facility] Hematology Oncology [address] [place] [address] Cricket Huntley MD [address] [place] [phone] documented as of this encounter Visit Diagnoses Diagnosis Malignant neoplasm of overlapping sites of right breast in female, estrogen receptor positive (CMS/HCC)- Primary Malignant neoplasm of upper-inner quadrant of left breast in female, 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) Malignant neoplasm metastatic to bone (CMS/HCC) documented in this encounter Discontinued Medications Medication Sig Discontinue Reason Start Date End Da te apixaban (ELIQUIS) 5 mg tablet Take 2.5 [...] 07/20/2024 UNABLE TO FIND Benadryl soln 12.5mg/5 gA-Dmfwve-Fgjohxod susp mouth wash 1:1:1 Swish and spit 15 mL every 4 (four) hours as needed. 02/20/2022 07/20/2024 documented as of this encounter Historical Medications * This list may reflect changes made after this encounter. Medication Sig Dispensed Refills Start Date End Date torsemide (DEMADEX) 20 mg tablet Take 1 tablet (20 mg total) by mouth 1 (one) time each day. spironolactone (ALDACTONE) 25 mg tablet Take 0.5 tablets (12.5 mg total) by mouth 1 (one) time each day. apixaban (ELIQUIS) 2.5 mg tablet Take 1 tablet (2.5 mg total) by mouth 2 (two) times a day. added in this encounter Care Teams Booking Officer Relationship Specialty Start Date End Date Maggi Swift MD [address] [facility] [address] [place] [id number] PCP - General Internal Medicine 12/05/21 documented as of this encounter
--- OUTSIDE RECORDS SUMMARY | 2024-07-28 14:19 | XMS_ITS | Encounter Summary ---
Author Organization [facility] Address [address] [place] [address] Care Team Providers Care Ice Cream Freezer Assistant Name Role Phone Maggi Swift MD Primary Care Provider [phone] Reason for Visit * Imaging (Routine) - Closed Specialty Diagnoses / Procedures Referred By Jud jaffe Referred To Contact Radiology Diagnoses Malignant neoplasm metastatic to bone (CMS/HCC) Malignant neoplasm of upper-inner quadrant of left breast in female, 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) Procedures NM Bone/Joint Scan Whole Body Cricket Huntley MD [address] [place] [address] [address] Referral ID Status Reason Start Date Expiration Date Visits Re quested Visits Authorized [id number] Closed 05/30/2024 05/30/2025 2 2 Encounter Details Date Type Department Care Team (Latest Contact Info) Description 07/14/2024 1:00 PM EST - 07/14/2024 11:59 PM EST Hospital Encounter [facility] Nuclear Medicine [address] [place] [phone] Discharge Disposition: Home or Self Care Social [...] 07/20/2024 UNABLE TO FIND Benadryl soln 12.5mg/5 dP-Lxunsy-Croyoalq susp mouth wash 1:1:1 Swish and spit 15 mL every 4 (four) hours as needed. 02/20/2022 07/20/2024 documented as of this encounter Discharge Disposition Disposition Code Departure Means Destination Home or Self Care documented in this encounter Plan of Treatment Upcoming Encounters Date Type Department Care Team (Late st Contact Info) Description 08/29/2024 11:15 AM EST Office Visit [facility] Hematology Oncology [address] [place] [address] Cricket Huntley MD [address] [place] [phone] documented as of this encounter Procedures Procedure [...] Signed Date: 07/16/2024 13:11 ET Workstation ID: [id number] Transcribed By: Self Edit Transcribed Date: 07/16/2024 [...] Following intravenous administration of 22.5 mCi of [id number] M MDP, whole body bone scan was [...] Signed Date: 07/16/2024 13:11 ET Workstation ID: [id number] Transcribed By: Self Edit Transcribed Date: 07/16/2024 13:06 ET Cricket Huntley MD IMG NM PROCEDURES documented in this encounter Visit Diagnoses Not on filedocumented in this encounter Care Teams Ice Cream Freezer Assistant Relationship Specialty Start Date End Date Maggi Swift MD [address] [place] [address] PCP - General Internal Medicine 12/05/21 documented as of this encounter
--- OUTSIDE RECORDS SUMMARY | 2024-07-28 14:19 | XMS_ITS | Encounter Summary ---
Author Organization [facility] Address [address] [place] [address] Care Team Providers Care Cutting Machine Tender Name Role Phone Maggi Swift MD Primary Care Provider Reason for Visit * Reason Onset Date Comments Appointment 07/20/2024 Encounter Details Date Type Department Care Team (Late st Contact Info) Description 07/20/2024 Telephone [facility] Hematology Oncology [address] [place] [address] Cricket Huntley MD [address] [place] [address] Appointment Social History Tobacco Use Types Packs/Day Years [...] as of this encounter Progress Notes * Sisi Moulton - 07/20/2024 4:32 PM EST Daniela asks if zometa infusion can be coordinated w/ ov on 08/29. documented in this encounter Plan of Treatment Upcoming Encounters Date Type Department Care Team (Late st Contact Info) Description 08/29/2024 11:15 AM EST Office Visit [facility] Hematology Oncology [address] [place] [phone] Cricket Huntley MD [address] [place] [phone] documented as of this encounter Visit Diagnoses Not on filedocumented in this encounter Care Teams Cutting Machine Tender Relationship Specialty Start Date End Date Maggi Swift MD [address] [facility] [address] [place] [id number] PCP - General Internal Medicine 12/05/21 documented as of this encounter
== END 2024-07-28 13:05 | disposition home or self-care (01) ==
PROVIDERS: PCP Internal Medicine; Visit Provider Surgery
DX: D05.12 Intraductal carcinoma in situ of left breast (principal)
CPT/HCPCS: 99213; G2211

== ENCOUNTER → 2024-07-28 11:49 | Outpatient (BNVA) | payer MEDICARE, OTHER, SELFPAY | PROVIDERS: PCP Internal Medicine; Visit Provider Surgery | DX: D05.12 Intraductal carcinoma in situ of left breast (principal) | CPT/HCPCS: 99212 ==

== ENCOUNTER 2025-02-08 11:20 | Outpatient (AMB) | payer MEDICARE, OTHER, SELFPAY ==
--- OUTSIDE RECORDS SUMMARY | 2024-04-20 11:30 | XMS_ITS | Encounter Summary ---
Author Organization [facility] Address [address] [place] [address] Care Team Providers Care Clinical Dietetic Technician Name Role Phone Maggi Swift MD Primary Care Provider [phone] Encounter Details Date Type Department Care Team (Late st Contact Info) Description 04/20/2024 11:30 AM EDT Hospital Encounter TH HISTORIC ENCOUNTERS [facility]AST[facility] CONVERSION ONLY Cricket Huntley MD [address] [place] [address] Social History Tobacco Use Types Packs/Day Years Used Date Smoking Tobacco: Never Assessed Alcohol Use Standard Drinks/Week Comments Yes 0 (1 standard drink = 0.6 oz pur e alcohol) Comments Unknown Sex and Gender Information Value Date Recorded Sex Assigned at Female 06/01/2024 8:19 AM EST Legal Sex Female 5:50 PM EST Gender Identity Female 06/01/2024 8:19 AM EST Sexual Orientation Straight 06/01/2024 8: 19 AM EST documented as of this encounter Plan of Treatment Upcoming Encounters Date Type Department Care Team (Late st Contact Info) Description 02/22/2025 11:30 AM EDT Office Visit [facility] Hematology Oncology [address] [place] [phone] Cricket Huntley MD [address] [place] [address] documented as of this encounter Visit Diagnoses Not on filedocumented in this encounter Additional Health Concerns Infection Onset Date Last Indicated Resolved Time Gastrointestinal Rule-Out 01/13/2025 01/13/2025 7:06 PM EDT C. difficile Rule-Out 01/18/2025 01/18/20252024 9:54 AM EDT C. difficile Rule-Out 01/19/2025 01/19/20252024 6:00 PM EDT documented as of this encounter Care Teams Clinical Dietetic Technician Relationship Specialty Start Date End Date Maggi Swift MD [address] [place] [address] PCP - General Internal Medicine 12/05/21 documented as of this encounter
--- NOTE | 2025-02-08 11:21 | A.OFFVIS_ITS ---
Vital Signs 02/08/25 11:32 Height 5 ft 7 in Weight 145 lb 8.081 oz BMI 22.8 Intake Visit Reasons: 6 month breast exam Intake Note: Patient is seen in office for 6 month follow up visit, breast exam. Pt c/o: denies any concerns Ribs xray:01/27/25 Excellence Leader Required: No Head Strength And Conditioning Coach: Head Strength And Conditioning Coach Present Accompanied by: Self / Same As Patient Allergies moxifloxacin (From AVELOX) Allergy (Severe, Verified 02/08/25 11:21) HIVES,RASH Quinolones (QUINOLONES) Allergy (Severe, Verified 02/08/25 11:21) RASH adhesive tape Allergy (Intermediate, Verified 02/08/25 11:21) Itching, redness cefpodoxime (From Vantin) Allergy (Intermediate, Verified 02/08/25 11:21) Itching pneumococcal vaccine (PNEUMOCOCCAL VACCINE) Allergy (Intermediate, Verified 02/08/25 11:21) TEMP, SWELLING dust, cats,strong perfumes Allergy (Intermediate, Uncoded 02/08/25 11:21) scratchy throat, nasal stuffiness environmental Allergy (Intermediate, Uncoded 02/08/25 11:21) Nasal congestion seasonal allergies Allergy (Intermediate, Uncoded 02/08/25 11:21) Nasal congestion HPI Comments Details: 80-year-old female patient returning for a six-month bilateral breast cancer follow-up.? 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 Armendariz in 2005 for right breast cancer.? She underwent a right modified radical mastectomy in 2005. ?Pathology revealed a mixed ductal and lobular carcinoma, 9.5 cm in greatest diameter, ER/NE positive, HER2 negative by fish, with 2/14 right axillary lymph nodes positive for metastasis. ?In 2014 she was diagnosed with a left breast infiltrating ductal carcinoma, 1 cm diameter, grade 1, ER/NE negative, HER2 Tejas negative.? She underwent a left breast lumpectomy with left axillary sentinel node biopsy on 06/08/2015 (Dr. San).? One sentinel node was benign.? She underwent DC chemotherapy at [facility] under direction of Dr. Huntley followed by radiation therapy at [facility] with Dr. Roberson completed in December 2015. She developed back pain and ?was diagnosed with metastatic breast cancer to the spine thought to be related to the previous right breast carcinoma.? A bone scan revealed metastatic disease in the ribs, skull and back.? MRI confirmed cord compression in the lumbar area and a biopsy was positive for metastatic lesion at L4, estrogen positive and positive for over expression of HER2.? She received radiation therapy to her back and subsequently received Taxol, Herceptin, and Perjeta.? She also received Zometa for her bones (Dr. Huntley).? Screening mammogram of 07/22/2023 with follow-up diagnostic images of 09/01/2023 revealed a cluster of calcifications in the left breast spanning approximately 3.3 cm.? Stereotactic guided core biopsy at [facility] revealed DCIS, ER/NE negative.? A simple mastectomy was performed on 10/05/2023 ([facility]). She returns today for follow-up examination. She was recently diagnosed with liver metastasis of the same right breast cancer. [facility] Medical History (Updated 02/08/25 @ 12:42 by Horace Gaspar MD) Constipation GERD (gastroesophageal reflux disease) Recent urinary tract infection OAB (overactive bladder) Anxiety Recent upper respiratory tract infection PND (post-nasal drip) Dental crowns present Lumbar compression fracture Thoracic compression fracture Scoliosis Environmental allergies Seasonal allergies History of cancer chemotherapy History of radiation therapy Atrial fibrillation Left breast mass History of bilateral breast cancer Surgical History H/O left mastectomy (10/05/23) History of lumpectomy of left breast (06/08/15) H/O colonoscopy History of nasal surgery History of tonsillectomy H/O right mastectomy (2005) Family History Father Lymphoma Maternal Aunt Pancreatic cancer Social History Household Members: None Housing: House Are you a primary day care home provider to a significant other at home: No Do you presently have visiting nurse or other home services: No Patient Tobacco Use Status: Former Tobacco user Tobacco use type: Cigarette service: No Review of Systems Const All systems reviewed & are unremarkable except as noted in HPI and below Denies chills, Denies fever(s), Reports weakness, Denies weight gain and Denies weight loss Resp Denies no additional complaints GI Denies abdominal pain and Reports bloating Denies nipple discharge Musc Reports back pain, Reports myalgias and Reports loss of height Skin/Breast Details: Right mastectomy Denies breast swelling, Reports breast pain, Denies breast mass, Denies change in breast shape and Denies nipple discharge Neuro Reports weakness Dominick/Lymph Denies lymphadenopathy Physical Exam Vital Signs: BMI result Body Mass Index 22.8 Const General: alert Nutritional Appearance: well nourished Orientation/consciousness: patient oriented x3 Chest Other: Bilateral mastectomy incisions are clean and intact. No palpable subcutaneous nodules are identified. No skin lesions are appreciated. No enlarged lymph nodes on either side. Resp Effort & Inspection: normal respiratory effort, no audible wheezes, no cough and no respiratory distress Skin Other: Warm, dry, no rash Neuro Other: Mobility Assessment: 1. 3 meter assessment time (seconds) 8 2. Gait observations: slow tentative pace, using walker General: patient oriented x3 Extrem Other: 1+ edema bilateral extremities Assessment & Plan Assessment & Plan (1) Ductal carcinoma in situ (DCIS) of left breast: Code(s): D05.12 - Intraductal carcinoma in situ of left breast Category: Medical (2) History of bilateral breast cancer: Code(s): Z85.3 - Personal history of malignant neoplasm of breast Category: Medical Plan 80-year-old female patient with history of metastatic invasive ductal carcinoma and prior history of triple negative breast cancer now with a new ductal carcinoma in-situ of the left breast. She underwent a left simple mastectomy on 10/05/2023 and tolerated the procedure quite well. Wounds are clean, dry, and intact without evidence of hematoma or seroma. She is now being treated for metastatic breast cancer to the liver and bones. She will follow-up in 6 months but is welcome to call sooner for any new concerns. She no longer requires mammograms. Coding Level of Care Code Est Pt Level 3 (47361) Complex EM visit Add On G2211 Diagnoses Ductal carcinoma in situ (DCIS) of left breast D05.12 History of bilateral breast cancer Z85.3
[2025-02-08 11:32] VITALS: BMI 22.8
--- OUTSIDE RECORDS SUMMARY | 2025-02-08 12:06 | XMS_ITS | Encounter Summary ---
Author Organization [facility] Address [address] [place] [id number] Care Team Providers Care Digital Advertising Specialist Name Role Phone Maggi Swift MD Primary Care Provider [phone] Encounter Details Date Type Department Care Team Description 01/14/2021 Nurse Triage [facility] Oncology Services [address] [place] [address] Yomi Morris RN Social History Tobacco Use [...] on filedocumented in this encounter Care Teams Digital Advertising Specialist Relationship Specialty Start Date End Date Maggi Swift MD [address] [facility] [address] [place] [address] PCP - General Internal Medicine 02/24/22 documented as of this encounter
--- OUTSIDE RECORDS SUMMARY | 2025-02-08 12:06 | XMS_ITS | Clinical Summary ---
Author Organization [facility] Address [address] [facility] [address] [place] [address] Phone Care Team Providers Care Speech Therapist Name Role Phone Cricket Huntley MD Unavailable [phone] Liv San MD Unavailable [phone] Maggi Swift MD Primary Care Provider [phone] Clare Gonzalez MD, MPH Unavailable [phone] Allergies Active Allergy Reactions Criticality Noted Date Comments Moxifloxacin Hives 05/02/2019 Cefpodoxime 11/17/2024 Medications ondansetron (ZOFRAN) 8 MG tablet Take 8 mg by mouth every 8 (eight) hours as needed. 9 Active omeprazole (PRILOSEC) 20 MG capsule Take 20 mg by mouth daily. 4 Active apixaban (ELIQUIS) 2.5 mg Take 2.5 mg by mouth 2 (two) times a day. 4 Active ENTRESTO 24-26 mg per tablet Take 1 tablet by mouth 2 (two) times a day. 5 Active acetaminophen (TYLENOL) 500 mg capsule 1,000 mg every 8 (eight) hours. 4 Active albuterol 90 mcg/actuation inhaler Inhale 2 puffs into the lungs every 6 (six) hours as needed. Active cholecalciferol (VITAMIN D3) 2,000 unit capsule Take 2,000 Units by mouth every other day. qod Active docusate sodium (COLACE) 100 MG capsule Take 100 mg by mouth 2 (two) times a day as needed. Active fluticasone propionate (FLONASE) 50 mcg/actuation nasal spray 1 spray by Nasal route 2 (two) times a day as needed. Active metoprolol succinate (TOPROL-XL) 25 MG 24 hr tablet Take 25 mg by mouth daily. 5 Active spironolactone (ALDACTONE) 25 MG tablet Take 12.5 mg by mouth daily. 5 Active torsemide (DEMADEX) 20 MG tablet Take 20 mg by mouth daily. 5 Active cranberry rtotiby-v-ucdmyhr 157.5-500 mg Cap Take 1 tablet by mouth daily. 4 Active calcium carbonate-vitamin D3 1,250 mg (500 mg elemental)-400 units per tablet Take 1 tablet by mouth daily. chewable Active therapeutic multivitamin tablet Take 1 tablet by mouth daily. 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 05/02/2019 Encounters Date Type Department Care Team Description 01/18/2025 3:45 PM EDT Evaluation [facility] [address] [place] [id number] Edmar Mcgee MD Arrhythmia (Primary Dx) 01/17/2025 Orders Only [facility] [address] [place] [id number] Edmar Mcgee MD 01/17/2025 Telephone [facility] [address] [place] [phone] Edmar Mcgee MD Koplan / schedule coord 01/11/2025 Ancillary Orders [facility] OUTSIDE IMG [address] [place] [address] Clare Gonzalez MD, MPH 12/07/2024 Ancillary Procedure [facility] OUTSIDE IMG [address] [place] [address] Clare Gonzalez MD, MPH 11/23/2024 2:00 PM EDT [facility], [facility], [facility] at [address] [address] Clare Gonzalez MD, MPH Primary malignant neoplasm of breast with metastasis (Primary Dx) 11/21/2024 8:26 AM EDT - 11/21/2024 11:59 PM EDT Hospital Encounter [facility], [address] [address] Discharge Disposition: Home or Self Care 11/18/2024 12:56 PM EDT - 11/18/2024 11:59 PM EDT Hospital Encounter [facility], [address] [address] Discharge Disposition: Home or Self Care 11/18/2024 Orders Only [facility], [facility], [address] [place] [address] Oneyda Lopez Malignant neoplasm of female breast, unspecified estrogen receptor status, unspecified laterality, unspecified site of breast (Primary Dx) 11/16/2024 2:49 PM EDT - 11/16/2024 11:59 PM EDT Hospital Encounter [facility], [address] [address] Discharge Disposition: Home or Self Care 11/16/2024 Patient Outreach [facility], [facility], [address] [place] [address] Allison Perez RN 11/16/2024 Ancillary Orders [facility]G [address] [place] [address] Clare Gonzalez MD, MPH 11/16/2024 Ancillary Orders [facility] [address] [place] [phone] Clare Gonzalez MD, MPH 11/16/2024 Ancillary Orders [facility] [address] [place] [address] Clare Gonzalez MD, MPH 11/16/2024 Ancillary Orders [facility] [address] [place] [id number] Clare Gonzalez MD, MPH 11/16/2024 Ancillary Orders [facility] [address] [place] [id number] Clare Gonzalez MD, MPH 11/16/2024 Ancillary Orders [facility] [address] [place] [id number] Clare Gonzalez MD, MPH 11/16/2024 Ancillary Orders [facility] [address] [place] [address] Clare Gonzalez MD, MPH 11/16/2024 Ancillary Orders [facility] [address] [place] [id number] Clare Gonzalez MD, MPH 11/16/2024 Ancillary Orders [facility] [address] [place] [address] Clare Gonzalez MD, MPH 11/16/2024 Ancillary Orders [facility] [address] [place] [address] Clare Gonzalez MD, MPH 11/16/2024 Ancillary Orders [facility] [address] [place] [phone] Clare Gonzalez MD, MPH 11/16/2024 Ancillary Orders [facility] [address] [place] [id number] Clare Gonzalez MD, MPH 11/16/2024 Ancillary Orders [facility] [address] [place] [id number] Clare Gonzalez MD, MPH 11/16/2024 Ancillary Orders [facility] [address] [place] [id number] Clare Gonzalez MD, MPH 11/16/2024 Ancillary Orders [facility] [address] [place] [id number] Clare Gonzalez MD, MPH 11/16/2024 Ancillary Orders [facility] [address] [place] [phone] Clare Gonzalez MD, MPH 11/16/2024 Ancillary Orders [facility] [address] [place] [address] Clare Gonzalez MD, MPH 11/16/2024 Ancillary Orders [facility] [address] [place] [address] Clare Gonzalez MD, MPH 11/16/2024 Ancillary Orders [facility] [address] [place] [phone] Clare Gonzalez MD, MPH 11/16/2024 Ancillary Orders [facility] [address] [place] [id number] Clare Gonzalez MD, MPH 11/16/2024 Ancillary Orders [facility] [address] [place] [address] Clare Gonzalez MD, MPH 11/14/2024 Orders Only [facility], [facility] [address] [place] [address], [address] [place] [address] Jackson Lopezvonda Shaunna Malignant neoplasm of female breast, unspecified estrogen receptor status, unspecified laterality, unspecified site of breast (Primary Dx) from Last 3 Months Immunizations Immunization Administration Dates Next Due COVID-19 (Pre-04/27) Pfizer Vaccine, mRNA, PF Influenza Quadrivalent w/ Preservative IM 2013 Influenza, Unspecified Formulation 04/30/2024 Zoster unspecified formulation 02/23/2008 Family History Medical History Relation Comments Basal cell carcinoma Brother Lymphoma Father Pancreatic cancer Maternal Aunt 1 Colon cancer Maternal Aunt 2 Breast cancer Maternal Cousin Lung cancer Maternal Uncle 1 Lymphoma Maternal Uncle 2 gastric Lymphoma Paternal Aunt 1 Colon cancer Paternal Aunt 2 Lymphoma Paternal Cousin 1 Breast cancer Paternal Cousin 2 inflammatory b reast ca Lung cancer Paternal Cousin 3 Leukemia Paternal Uncle Relation Status Comments Brother Father Maternal Aunt 1 Maternal Aunt 2 Alive Maternal Cousin Alive Maternal Uncle 1 Maternal Uncle 2 Paternal Aunt 1 Paternal Aunt 2 Paternal Cousin 1 Alive Paternal Cousin 2 Paternal Cousin 3 Paternal Uncle Social History Tobacco Use Types Packs/Day Years Used Date Smoking Tobacco: Former Cigarettes Passive Smoke Exposure: Past Smokeless Tobacco: Never Tobacco Cessation:Counseling Given: Not Answered Alcohol Use Standard Drinks/Week Comments Yes 0 (1 standard drink = 0.6 oz pur e alcohol) occasional socially Child or Family Care Answer Date Record ed Do you have problems with on e of the following making it difficult for you to work, study, or receive health care? No 11/16/2024 Education Answer Date Recorded Are you interested in more education? Not on cristian e 10/31/2022 Are you concerned about learning? Not on file 10/31/2022 No 10/31/2022 No 10/31/2022 Food Answer Date Recorded Within the past 6 months we worried whether our food would run out before we got money to buy more. Never True 11/16/2024 Within the past 6 months the food we bought just didn't last and we didn't have enough money to get more. Never True Residential Stability Answer Date Recor ded What is your housing situation today? I have kendy sing 11/16/2024 How many times have you move d in the past 12 months? Zero (I did not move) 11/16/2024 Paying for Meds Answer Date Recorded Do you have trouble paying for medicines? No 11/16/2024 Paying Utility Bills Answer Date Record ed Do you have trouble paying your heating or elect ricity bill? No 11/16/2024 Transportation Answer Date Recorded Has the lack of transportati on kept you from medical appointments or from getting medications? No 11/16/2024 Digital Access Answer Date Recorded No 12/01/2022 No 12/01/2022 Reliable internet access at home? Not on file 12/01/2022 Device with a working camera? Not on file Comments Unknown Sex and Gender Information Value Date Recorded Sex Assigned at Female 11/11/2024 1:56 PM EDT Legal Sex Female 4:38 AM EST Gender Identity Female 11/11/2024 1:56 PM EDT Sexual Orientation Straight 11/11/2024 1: 56 PM EDT Last Filed Vital Signs Vital Sign Reading Time Taken Comments Blood Pressure 104/58 11/23/2024 2:00 PM EDT Pulse 104 11/23/2024 2:00 PM EDT Temperature 36.4 C (97.6 F) 04/29/2019 1:23 PM EDT Respiratory Rate 16 11/23/2024 2:00 PM EDT Oxygen Saturation 97% 11/23/2024 2:00 PM EDT Inhaled Oxygen Concentration - - Weight 64.4 kg (141 lb 15.6 oz) 04/29/2019 1:23 PM EDT Height 167.5 cm (5' 5.95 ) 04/29/2019 1:23 PM ED T DFCI Body Mass Index 22.95 04/29/2019 1:23 PM EDT Plan of Treatment Upcoming Encounters Date Type Department Care Team (Late st Contact Info) Description 03/30/2025 2:40 PM EDT Office Visit [facility] [address] [place] [address] Lian Hensley MD, MSc [address] [place], [place] [id number] [email or web address] Health Maintenance Due Date Last Done Comments Adult Td,Tdap Booster 1945 CREATININE LEVEL 1944 POTASSIUM LEVEL 1944 DEPRESSION SCREENING 1956 PNEUMOCOCCAL VACCINES (50+ y ears) (1 of 2 - PCV) 01/28/1963 ZOSTER VACCINES (1 of 2) 01/28/1963 02/23/2008 OSTEOPOROSIS SCREENING INITI AL (ONE-TIME) 01/28/2009 RSV VACCINE (1 - 1-dose 75+ series) 01/28/2019 COVID-19 VACCINE (2 - 2023-2 5 season) 2024 08/25/2020 HEPATITIS A VACCINES Aged Out No long er eligible based on patient's age to complete this topic HIB VACCINES Aged Out No longer eligi ble based on patient's age to complete this topic MENINGOCOCCAL VACCINES (ACWY) Aged Out No longer eligible based on patient's age to complete this topic MENINGOCOCCAL VACCINES (B) Aged Out N o longer eligible based on patient's age to complete this topic Medical Devices Not on file Procedures Procedure Name Priority Date/Time Associated Diagnosis Comments OUTSIDE LAB 01/09/2025 US CARDIAC OUTSIDE (NO INTERPRETATION) Routine 12/07/2024 12:00 AM EDT from Last 3 Months Results * Outside Lab (01/09/2025) us Scanning Interface Provider LAB BLOOD ORDERABLES Final Result * US Cardiac Outside (No Interpretation) (12/07/2024 12:00 AM EDT) Other Narrative PERCIPIO_DFCI - 01/11/2025 4:06 PM EDT This study is for PACS storage only and not for interpretation. us Clare Gonzalez MD, MPH IMG OUTSIDE IMAGING W/OUT I NTERPRETATION Final Result PERCIPIO_DFCI from Last 3 Months [place] [address] [address] [facility] [employer] MEDICARE SUPPLEMENT MEDICARE PART A & [place] [address] [facility] MEDICARE SUPPLEMENT MEDICARE PART A & [place] [id number] [facility] MEDICARE SUPPLEMENT MEDICARE PART A & [place] [address] amprice [facility] [employer] MEDICARE SUPPLEMENT MEDICARE PART A & [place] [address] amprice [facility] [employer] MEDICARE SUPPLEMENT MEDICARE PART A & [place] [address] [employer] MEDICARE SUPPLEMENT MEDICARE PART A & [place] [id number] [employer] MEDICARE SUPPLEMENT MEDICARE PART A & B [facility] [employer] MEDICARE SUPPLEMENT MEDICARE PART A & [place] [address] [facility] [employer] MEDICARE SUPPLEMENT MEDICARE PART A & B Advance Directives For more information, please contact: [phone] (9AM - 5PM [facility], Thursday-Thursday) Documents on File Type Date Recorded Patient Security Orderly Expl anation Healthcare Proxy 04/29/2019 Care Teams Speech Therapist Relationship Specialty Start Date End Date Maggi Swift MD [address] [place] [id number] [email or web address] PCP - General Internal Medicine 11/11/24 Cricket Huntley MD [address] [place] [address] [email or web address] Referring Physician Internal Medicine 04/29/19 Liv San MD [address] [place] [address] Referring Physician General Surgery 04/29/19 Clare Gonzalez MD, MPH [address] [place] [id number] [email or web address] Medical Oncology 11/14/24 Additional Source Comments The information contained in this document represents components of the legal health record. It is not the complete legal health record[facility]
== END 2025-02-08 12:17 | disposition home or self-care (01) ==
LOC: HO.HGS 11:20
PROVIDERS: PCP Internal Medicine; Visit Provider Surgery
DX: D05.12 Intraductal carcinoma in situ of left breast (principal); Z85.3 Personal history of malignant neoplasm of breast
CPT/HCPCS: 99213; G2211

== ENCOUNTER → 2025-02-08 11:20 | Outpatient (BNVA) | payer MEDICARE, OTHER, SELFPAY | PROVIDERS: PCP Internal Medicine; Visit Provider Surgery | DX: D05.12 Intraductal carcinoma in situ of left breast (principal); Z85.3 Personal history of malignant neoplasm of breast | CPT/HCPCS: 99212 ==